=== PATIENT | female | born 1985 | race Caucasian/White ===

== ENCOUNTER → 2018-12-10 10:55 | Outpatient (POV) | payer OTHER, SELFPAY | PROVIDERS: Visit Provider Nurse Practitioner Acute Care | DX: Z00.00 Encounter for general adult medical examination without abnormal findings (principal) ==

== ENCOUNTER → 2021-07-19 12:12 | Outpatient (CLI) | payer BC, SELFPAY ==
[2021-07-19 14:38] LABS: HCG,Quantitative 23807 mIU/ml (0-5.42)
== END ==
PROVIDERS: Visit Provider Obstetrics & Gynecology
DX: Z34.90 Encounter for supervision of normal pregnancy, unspecified, unspecified trimester (principal)
CPT/HCPCS: 36415; 84702

== ENCOUNTER → 2021-08-02 13:41 | Outpatient (CLI) | payer BC, SELFPAY ==
--- NOTE | 2021-08-02 13:41 | US_ITS ---
PROCEDURE: US OB <= 14 WEEKS FETUS CLINICAL INDICATION: dates COMPARISON: No exams were available for comparison FINDINGS: An intrauterine gestational sac is present with a pole with a crown-rump length of 1.37cm correlating to gestational age of 7weeks 5days. heart tones are present with an FHR of 157bpm. Yolk sac is noted. IMPRESSION: Live IUP at 7 weeks 5 days Estimated due date by Ultrasound is 03/16/2022 Dictated by: Diony Alberts MD 08/02/2021 16:25 Diony Alberts MD in [facility] 08/02/2021 16:25
== END ==
PROVIDERS: PCP Nurse Practitioner Family; Visit Provider Obstetrics & Gynecology
DX: Z34.90 Encounter for supervision of normal pregnancy, unspecified, unspecified trimester (principal)
CPT/HCPCS: 76801

== ENCOUNTER → 2021-08-06 14:23 | Outpatient (CLI) | payer BC, SELFPAY ==
[2021-08-09 23:06] LABS: Neisseria gonorrhoeae, NAA Negative (Negative)
== END ==
PROVIDERS: Visit Provider Obstetrics & Gynecology
DX: Z34.90 Encounter for supervision of normal pregnancy, unspecified, unspecified trimester (principal)
CPT/HCPCS: 87491; 87591

== ENCOUNTER → 2021-08-31 15:28 | Outpatient (CLI) | payer BC, SELFPAY ==
[2021-08-31 16:24] LABS: Basophils # 0.1 K/mm3 (0-0.2); Basophils % 0.8 % (0.1-2.0); Eosinophils # 0.1 K/mm3 (0.0-0.4); Eosinophils % 0.9 % (0.1-12.0); Hematocrit 42.3 % (37.0-47.0); Lymphocytes # 2.6 K/mm3 (0.7-4.5); Mean Corpuscular HGB Conc 33.1 g/dL (31.8-35.4); Mean Corpuscular Hemoglobin 28.6 pg (27.0-31.2); Mean Corpuscular Volume 86.6 fl (81-99); Mean Platelet Volume 7.7 fl (7.4-10.4); Monocytes # 0.5 K/mm3 (0.1-1.0); Monocytes % 4.8 % (1.7-9.3); Neutrophils % 70.6 % (37.0-80.0); Platelet Count 376 K/mm3 (142-424); Red Blood Count 4.89 M/mm3 (4.20-5.40); White Blood Count 11.3 K/mm3 (4.8-10.8)
[2021-09-02 08:14] LABS: HIV Screen 4th Generation wRfx Non Reactive (Non Reactive)
[2021-09-02 09:21] LABS: Hepatitis B Surface Antigen Negative (Negative); Hepatitis C Antibody <0.1 s/co ratio (0.0-0.9)
[2021-09-02 13:11] LABS: Rapid Plasma Reagin Ab Titer Non Reactive (NonRea<1:1)
== END ==
PROVIDERS: Visit Provider Obstetrics & Gynecology
DX: Z34.90 Encounter for supervision of normal pregnancy, unspecified, unspecified trimester (principal)
CPT/HCPCS: 36415; 85025; 86592; 86703; 86762; 86850; 87340; 87380; G0432

== ENCOUNTER → 2021-09-22 10:21 | Outpatient (CLI) | payer BC, SELFPAY ==
--- NOTE | 2021-09-22 10:21 | US_ITS ---
PROCEDURE: US OB >= 14 WEEKS FETUS CLINICAL INDICATION: bleeding in early COMPARISON: US US OB <= 14 WEEKS FETUS from 08/02/2021 FINDINGS: There is a single live fetus present in cephalic presentation. The cervix is closed and measures 4 cm in length. The placenta is anterior and grade 1. No previa or abruption. Along the posterior aspect the FD Arctic cavity there is a focal area of I so echogenicity measuring approximately 3 cm. This may represent a Townsend Cee contraction. Fibroid could have a similar appearance however this abnormality was not demonstrated on the previous ultrasound 08/02/2021. Twenty week follow-up suggested. Complete survey performed and was unremarkable on the submitted images as in PACS. No discrete anomalies identified on survey imaging by technologist. Active fetus. Three-vessel cord with satisfactory umbilical cord insertion. 4- chamber heart noted. Survey of brain & ventricles Unremarkable. Face and neck survey unremarkable. Diaphragm and chest views unremarkable. Abdomen: Both kidneys noted and unremarkable. Stomach noted and satisfactory. Spine: Survey of the spine satisfactory with no anomalies identified nor imaged. Both arms and legs noted. Amniotic Fluid: Adequate. Maternal adnexa: No significant findings. Measurements: Average ultrasound age 15weeks 3days. Gestational Age 15weeks 3days Estimated due date by ultrasound age 0503/13/2022. Estimated weight 115g BPD = 15weeks 6days OFD = 15weeks HC = 15weeks 2days AC = 15weeks 1day FL = 15weeks 2days Growth Percentile= 46% Heart Rate = 152bpm Cerebellum = Humerus = HC/AC is 1.24 CI is 0.83 FL/BPD is 0.56 FL/AC is 0.2 IMPRESSION: Live IUP at 15 weeks 3 days in cephalic presentation. No obvious anomalies. However this does not suffice for a 20 week anatomy exam. Anterior grade 1 placenta without previa or abruption. Hypoechogenicity along the amniotic cavity posteriorly which may represent a Townsend Cee contraction. A fibroid could have a similar appearance. Twenty week follow-up suggested. Dictated by: Diony Alberts MD 09/22/2021 17:27 Diony Alberts MD in [facility] 09/22/2021 17:27
== END ==
LOC: RAD 10:21
PROVIDERS: Visit Provider Nurse Practitioner Obstetrics & Gynecology
DX: Z34.90 Encounter for supervision of normal pregnancy, unspecified, unspecified trimester (principal); O20.9 Hemorrhage in early pregnancy, unspecified
CPT/HCPCS: 76805

== ENCOUNTER → 2021-11-08 13:48 | Outpatient (CLI) | payer BC, SELFPAY ==
--- NOTE | 2021-11-08 13:48 | US_ITS ---
FINAL REPORT CLINICAL HISTORY: 20 weeks gestation-- anatomy FINDINGS: There is a single live intrauterine gestation. Presentation is breech. Placenta is anterior, fundal and grade 1. Cardiac activity is confirmed at 142 bpm. Fetus is active. Three-vessel cord with satisfactory umbilical cord insertion. Four-chamber heart is noted. brain and ventricles are unremarkable. Chest and diaphragm are unremarkable. ABDOMEN: Both kidneys are unremarkable. Stomach is unremarkable. SPINE: No anomalies identified. Both arms and legs noted. AMNIOTIC FLUID: Appropriate amount. MEASUREMENTS: ULTRASOUND AGE: 21 weeks 3 days. GESTATION AGE: 21 weeks 5 days. ESTIMATED WEIGHT: 437 g GROWTH PERCENTILE: 39% BPD: 5 cm consistent with 21 weeks 1 days. OFD: 6.6 cm consistent with 21 weeks 6 days. HC: 18.4 cm consistent with 20 weeks 6 days. AC: 16.8 cm consistent with 21 weeks 6 days. FL: 3.7 cm consistent with 21 weeks 5 days. CEREBELLUM: 2.2 cm consistent with 22 weeks 1 days. HUMERUS: 3.6 cm consistent with 22 weeks 5 days. HC/AC: 1.10 CI: 76% FL/BPD: 73% FL/AC: 22% IMPRESSION: Single living IUP with an ultrasound age of 21 weeks 3 days. Reviewed, Interpreted and Dictated by Rakesh Samuels MD Transcribed by Jacky Vaughn Authenticated by Rakesh Samuels MD on 11/09/2021 06:56:37 AM [facility]
== END ==
LOC: RAD 13:48
PROVIDERS: PCP Nurse Practitioner Family; Visit Provider Nurse Practitioner Obstetrics & Gynecology
DX: Z3A.20 20 weeks gestation of pregnancy (principal); Z36.0 Encounter for antenatal screening for chromosomal anomalies
CPT/HCPCS: 76811

== ENCOUNTER → 2021-12-22 08:11 | Outpatient (CLI) | payer BC, SELFPAY ==
[2021-12-22 10:45] LABS: Glucose 1 Hour 145 mg/dL (74-100)
[2021-12-22 11:23] LABS: Glucose,Fasting 83 mg/dl (74-100)
== END ==
PROVIDERS: Visit Provider Nurse Practitioner Obstetrics & Gynecology
DX: Z34.90 Encounter for supervision of normal pregnancy, unspecified, unspecified trimester (principal)
CPT/HCPCS: 36415; 82951

== ENCOUNTER → 2022-01-03 09:02 | Outpatient (CLI) | payer BC, SELFPAY ==
[2022-01-03 09:51] LABS: Glucose,Fasting 83 mg/dl (74-100)
[2022-01-03 11:13] LABS: Glucose 1 Hour 145 mg/dL (74-100)
[2022-01-03 12:48] LABS: Glucose 2 Hour 135 mg/dL (74-100)
[2022-01-03 13:13] LABS: Glucose 3 Hour 100 mg/dL (74-100)
== END ==
PROVIDERS: Visit Provider Nurse Practitioner Obstetrics & Gynecology
DX: Z34.90 Encounter for supervision of normal pregnancy, unspecified, unspecified trimester (principal)
CPT/HCPCS: 36415; 82951

== ENCOUNTER → 2022-02-07 14:29 | Outpatient (CLI) | payer BC, SELFPAY | PROVIDERS: Visit Provider Nurse Practitioner Obstetrics & Gynecology | DX: Z34.90 Encounter for supervision of normal pregnancy, unspecified, unspecified trimester (principal) ==

== ENCOUNTER → 2022-02-22 14:14 | Outpatient (CLI) | payer BC, SELFPAY | PROVIDERS: Visit Provider Nurse Practitioner Obstetrics & Gynecology | DX: Z34.90 Encounter for supervision of normal pregnancy, unspecified, unspecified trimester (principal); Z3A.36 36 weeks gestation of pregnancy | CPT/HCPCS: 86403 ==

== ENCOUNTER → 2022-03-04 13:17 | Outpatient (CLI) | payer BC, SELFPAY ==
--- NOTE | 2022-03-04 13:17 | US_ITS ---
FINAL REPORT CLINICAL HISTORY: sga FINDINGS: There is a single live intrauterine gestation. Presentation is cephalic. The cervix is closed and measures 4.7 cm. Placenta is anterior, grade 2. movement is noted. Heart rate is 150 beats per minute. AMNIOTIC FLUID: Appropriate amount. MEASUREMENTS: ULTRASOUND AGE: 37 weeks 4 days. GESTATION AGE: 38 weeks 2 days. ESTIMATED WEIGHT: 3262 g GROWTH PERCENTILE: 47% BPD: 9.16 cm consistent with 37 weeks 2 days. OFD: 11.32 cm consistent with 38 weeks 2 days. HC: 32.35 cm consistent with 36 weeks 5 days. AC: 33.76 cm consistent with 37 weeks 5 days. FL: 7.48 cm consistent with 38 weeks 2 days. HC/AC: 0.96 CI: 81% FL/BPD: 82% FL/AC: 22% IMPRESSION: Single living IUP with an ultrasound age of 37 weeks 4 days. No anomalies noted. Reviewed, Interpreted and Dictated by Faustino Pierce III, MD Transcribed by Cristina Lazaro Authenticated by Faustino Pierce III, MD on 03/04/2022 03:06:40 PM [facility]
== END ==
LOC: RAD 13:17
PROVIDERS: Visit Provider Nurse Practitioner Obstetrics & Gynecology
DX: O36.5990 Maternal care for other known or suspected poor fetal growth, unspecified trimester, not applicable or unspecified (principal)
CPT/HCPCS: 76816

== ENCOUNTER 2022-03-08 15:56 | Inpatient (IN) | payer BC, SELFPAY ==
[2022-03-08 15:59] VITALS: BMI 40.1
[2022-03-08 16:13] VITALS: BP 129/70; PULSE 112; RESP 18; TEMP 36.8; O2SAT 95; BMI 40.1
[2022-03-08 16:40] LABS: Microscopic, Urine URINE MICROSCOPIC (MICROSCOPIC)
[2022-03-08 16:51] LABS: Chloride 107 mmol/L (98-107); Potassium 3.7 mmoL/L (3.5-5.1); Sodium 135 mmol/L (136-145)
[2022-03-08 16:54] LABS: Blood Urea Nitrogen 7 mg/dl (7-17); Carbon Dioxide 22 mmol/L (22.0-30.0); Creatinine Clearance Estimated 271 mL/min (50-200); Estimated Glomerular Filt Rate 140 ml/min (>60); GFR (African American) 170 ML/MIN (>60)
[2022-03-08 16:55] LABS: Anion Gap 9.7 mEq/L (5-15); Calcium 9.2 mg/dl (8.4-10.2); Glucose 153 mg/dl (74-100)
[2022-03-08 16:58] LABS: Appearance,Urine SL CLOUDY (Clear); Bilirubin,Urine Negative (Negative); Blood, Urine Negative (Negative); Color,Urine YELLOW (Yellow); Glucose,Urine (UA) TRACE (Negative); Ketones,Urine Negative (Negative); Leukocyte Esterase,Urine Negative (Negative); Nitrate,Urine Negative (Negative); PH,Urine 5.5 (5.0-8.5); Protein,Urine TRACE (Negative); Specific Gravity, Urine >= 1.030 (1.005-1.030); Urobilinogen,Urine 0.2 EU/dl (0.2)
[2022-03-08 17:03] LABS: Basophils # 0.1 K/mm3 (0-0.2); Basophils % 1.1 % (0.1-2.0); Eosinophils # 0.1 K/mm3 (0.0-0.4); Eosinophils % 1.2 % (0.1-12.0); Hematocrit 37.9 % (37.0-47.0); Hemoglobin 12.4 g/dL (12.2-16.2); Lymphocytes # 2.3 K/mm3 (0.7-4.5); Lymphocytes % 21.5 % (10-50); Mean Corpuscular HGB Conc 32.8 g/dL (31.8-35.4); Mean Corpuscular Hemoglobin 27.9 pg (27.0-31.2); Mean Corpuscular Volume 85.1 fl (81-99); Mean Platelet Volume 8.8 fl (7.4-10.4); Monocytes # 0.7 K/mm3 (0.1-1.0); Monocytes % 6.2 % (1.7-9.3); Neutrophils # 7.4 K/mm3 (1.8-7.8); Platelet Count 342 K/mm3 (142-424); Red Blood Count 4.45 M/mm3 (4.20-5.40); Red Cell Distribution Width 14.1 % (11.5-17.5); White Blood Count 10.6 K/mm3 (4.8-10.8)
[2022-03-08 17:06] LABS: Amphetamine/Metha Screen,Urine Negative ng/ml (<1000); Barbiturates Screen,Urine Negative ng/ml (<200)
[2022-03-08 17:07] LABS: Benzodiazepines Screen,Urine Negative ng/ml (<200)
[2022-03-08 17:08] LABS: Cannabinoid Screen,Urine Negative ng/ml (<50); Cocaine Screen,Urine Negative ng/ml (<300)
[2022-03-08 17:09] LABS: Methadone Screen,Urine Negative ng/ml (<300); Opiate Screen,Urine Negative ng/ml (<300)
[2022-03-08 17:10] LABS: Phencyclidine Screen,Urine Negative ng/ml (<25)
[2022-03-08 17:59] LABS: Bacteria,Urine 3+ /lpf
--- NOTE | 2022-03-08 18:00 | HMH.OBAPHP ---
OB - H&P: HPI Antepartum - History of Present Illness Chief complaint: Term History of present illness: She is a 36-year-old 2 para 1 at 39 weeks gestational age. She is here for induction of labor at term. She has had a previous vaginal delivery. Recent ultrasound showed an average size baby. - History of Present Criteria for establishing EDC:: LMP confirmed by 1st trimester US care: good care Ultrasounds: normal 1st trimester US, normal mid trimester US Obstetrical complications: none, other Medical complications: none - Labs Blood type: A (+) positive Rubella: immune RPR/VDRL: nonreactive GBS status: negative HBsAG: negative [facility] History I have reviewed the patient's past medical history: Yes Medical History: Reports:: Anxiety Denies:: Asthma, Depression, Diabetes Mellitus Type 1, Diabetes Mellitus Type 2, Heart Murmur, Hyperlipidemia, Hypertension, Internal Pacemaker, Lung Disease, MRSA, Seizures *Have you ever received a pneumonia vaccine?: No *Have you received a flu vaccine this season?: No Other Medical History: Denies: Blood Transfusion Reaction Other Surgeries: No: , Pacemaker Amputation: No Fractures: No - *Social History Smoking Status: Former smoker Tobacco Type: cigarettes Alcohol Intake: current Alcohol Intake Frequency:: holidays/special occasions only Substance Use Type: denies use *Occupational Status:: employed *Travel in the last 8 weeks: None - Psychiatric History Pschychiatric History:: Reports:: Anxiety Denies:: Depression Family Hx:: Heart Attack, Hypertension, Hyperlipidemia Para: 1 Review of Systems - Review of Systems Review of systems:: pertinent systems reviewed and negative unless documented below Meds Home Medications Medication Instructions Recorded Confirmed Type vits no.126-ferrous fum tab PO DAILY tab 08/06/21 03/01/22 History 28 mg iron-folic acid 800 mcg tablet ferrous gluconate 240 mg (27 mg 240 mg PO DAILY #30 tab 10/29/21 03/01/22 Rx iron) tablet Allergies Allergy/AdvReac Type Severity Reaction Status Date / Time Sulfa (Sulfonamide Allergy Mild not sure Verified 03/01/22 15:53 Antibiotics) of reaction, mom told her she was allergic OB - H&P: Exam - Physical Exam Vital signs: Temp Pulse Resp BP Pulse Ox 98.3 F 112 H 18 129/70 95 03/08/22 16:13 03/08/22 16:13 03/08/22 16:13 03/08/22 16:13 03/08/22 16:13 - Constitutional no acute distress - Routine HEENT Exam Head: Present: normocephalic Eye: Present: EOMI, PERRL ENT: Present: mucous membranes moist - Routine Neck Exam Present: supple, full ROM - Routine Respiratory Exam Absent: accessory muscle use (good air entry bilaterally), respiratory distress, wheezes, crackles - Routine Cardiovascular Exam Present: RRR. Absent: murmur - Routine Abdominal Exam Present: soft, normoactive bowel sounds. Absent: tenderness, distended, guarding - Routine Rectal Exam Patient deferred: visual exam, digital exam - Routine Exam Patient deferred: external exam, groin exam, perineal exam - Routine Extremities Exam Present: full ROM. Absent: cyanosis, edema - Routine Skin Exam Present: intact. Absent: cyanosis - Routine Neurological Exam Present: alert, oriented X3 - Routine Psychiatric Exam Present: normal affect OB - Results - Labs Labs: Short CBC 03/08/22 Range/Units 16:27 WBC 10.6 (4.8-10.8) K/mm3 Hgb 12.4 (12.2-16.2) g/dL Hct 37.9 (37.0-47.0) % Plt Count 342 (142-424) K/mm3 BMP 03/08/22 16:27 Sodium 135 L Potassium 3.7 Chloride 107 Carbon Dioxide 22 BUN 7 Creatinine 0.50 L Glucose 153 H Calcium 9.2 Urine 03/08/22 Range/Units 16:08 Urine Color Yellow (Yellow) Urine Appearance Sl cloudy (Clear) Urine pH 5.5 (5.0-8.5) Ur Specific [place] >= 1.030 (1.005-1.030) Urine Prote
[2022-03-09 08:00] VITALS: BP 117/57; PULSE 73; RESP 18; TEMP 36.8; O2SAT 99
--- NOTE | 2022-03-09 08:36 | HMH.LABNOT ---
Labor Note - Subjective: Date: 03/09/22 Time: 07:25 regular contraction - Objective: NST:: Reactive Contractions:: every 2-3 minutes Cervical Dilation:: 2-3 Effacement:: 50% Station: -2 Membranes: artificially ruptured - Fetus: Monitoring?: Yes monitoring type:: Internal and External Comment:: I ruptured her membranes and there was clear fluid. I inserted an IUPC. - Assessment: Labor progressing?: Yes Cephalopelvic disproportion?: No Patient Problems: All Active Problems Normal delivery at term (Acute) AMA (advanced maternal age) multigravida 35+ (Acute) (Acute) - Plan: Anesthesia for epidural?: Yes Continue to labor down?: Yes Plan for ?: No Continue to monitor?: Yes Start pushing?: No
--- NOTE | 2022-03-09 08:48 | HMH.ANESCL ---
[facility] Anesthesia Checklist - Patient Identification Patient Identification: Arm Band - Structural Data Admitted From: Inpatient Planned Operative Procedure/s: Labor Epidural Consent for Planned Operative Procedure(s) Verified: Yes Verified Documents: Surgical Consent, History and Physical - NPO Status Verified Time NPO: 00:00 - Additional verifications Anesthesia Reactions: No Hx Blood Transfusions: No Blood Transfusion Reaction: No - Airway Assessment C-Spine Mobility Assessed: Yes TMJ Mobility Assessed: Yes Dentition: Good Dentition - Neurological Assessment Level of Consciousness: Awake, Alert - Anesthesia Plan Anesthesia Risk discussed: Yes Anesthesia Plan: Verified ASA Class: II Anesthesia Type: Epidural [facility] History I have reviewed the patient's past medical history: Yes Medical History: Reports:: Anxiety Denies:: Asthma, Depression, Diabetes Mellitus Type 1, Diabetes Mellitus Type 2, Heart Murmur, Hyperlipidemia, Hypertension, Internal Pacemaker, Lung Disease, MRSA, Seizures *Have you ever received a pneumonia vaccine?: No *Have you received a flu vaccine this season?: No Other Medical History: Denies: Blood Transfusion Reaction Anesthesia experience/problems:: nac Other Surgeries: No: , Pacemaker Amputation: No Fractures: No - *Social History Smoking Status: Former smoker Tobacco Type: cigarettes Alcohol Intake: current Alcohol Intake Frequency:: holidays/special occasions only Substance Use Type: denies use *Occupational Status:: employed *Travel in the last 8 weeks: None - Psychiatric History Pschychiatric History:: Reports:: Anxiety Denies:: Depression Family Hx:: Heart Attack, Hypertension, Hyperlipidemia Para: 1
--- NOTE | 2022-03-09 10:27 | HMH.LABNOT ---
Labor Note - Subjective: Date: 03/09/22 Time: 10:05 regular contraction - Objective: NST:: Reactive Contractions:: every 2-3 minutes Cervical Dilation:: 4 Effacement:: 75% Membranes: artificially ruptured - Fetus: Monitoring?: Yes monitoring type:: Internal and External - Assessment: Labor progressing?: Yes Cephalopelvic disproportion?: No Patient Problems: All Active Problems Normal delivery at term (Acute) AMA (advanced maternal age) multigravida 35+ (Acute) (Acute) - Plan: Anesthesia for epidural?: Yes Continue to labor down?: Yes Plan for ?: No Continue to monitor?: Yes Start pushing?: No
--- NOTE | 2022-03-09 11:43 | HMH.LABNOT ---
Labor Note - Subjective: Date: 03/09/22 Time: 11:43 regular contraction - Objective: NST:: Reactive Contractions:: every 2-3 minutes Cervical Dilation:: 4-5 Effacement:: 90% Station: -2 Membranes: artificially ruptured - Fetus: Monitoring?: Yes monitoring type:: Internal and External - Assessment: Labor progressing?: Yes Cephalopelvic disproportion?: No Patient Problems: All Active Problems Normal delivery at term (Acute) AMA (advanced maternal age) multigravida 35+ (Acute) (Acute) - Plan: Anesthesia for epidural?: Yes Continue to labor down?: Yes Plan for ?: No Continue to monitor?: Yes Start pushing?: No
--- NOTE | 2022-03-09 13:59 | HMH.LABNOT ---
Labor Note - Subjective: Date: 03/09/22 Time: 13:59 regular contraction - Objective: NST:: Reactive Contractions:: every 2-3 minutes Cervical Dilation:: 7 Effacement:: 90% Station: -1 Membranes: artificially ruptured - Fetus: Monitoring?: Yes monitoring type:: Internal and External - Assessment: Labor progressing?: Yes Cephalopelvic disproportion?: No Patient Problems: All Active Problems Normal delivery at term (Acute) AMA (advanced maternal age) multigravida 35+ (Acute) (Acute) - Plan: Anesthesia for epidural?: Yes Continue to labor down?: Yes Plan for ?: No Continue to monitor?: Yes Start pushing?: No
--- NOTE | 2022-03-09 15:49 | HMH.LABNOT ---
Labor Note - Subjective: Date: 03/09/22 Time: 15:49 regular contraction - Objective: NST:: Reactive Cervical Dilation:: 9 Effacement:: 90% Station: -1 Membranes: artificially ruptured - Fetus: Monitoring?: Yes monitoring type:: Internal and External - Assessment: Labor progressing?: Yes Cephalopelvic disproportion?: No Patient Problems: All Active Problems Normal delivery at term (Acute) AMA (advanced maternal age) multigravida 35+ (Acute) (Acute) - Plan: Anesthesia for epidural?: Yes Continue to labor down?: Yes Plan for ?: No Continue to monitor?: Yes Start pushing?: No Comment:: The baby comes down well with each contraction. It retracts quite high between contractions. She is 9 cm with a contraction. We will continue to have her sitting up and see if this helps bring the baby's head down a little more. Nonstress test is reactive. She is having some good contractions. As soon as she becomes fully dilated and the head is well engaged we will go ahead and start pushing.
--- NOTE | 2022-03-09 17:40 | P.PCN_ITS ---
- Delivery Note Delivery Date:: 03/09/22 Delivery Time:: 17:30 Anesthesia Type: Epidural Was labor medically induced?: Yes Induction method: per misoprostol protocol Gestational age (weeks): 39 delivered prior to 39 weeks?: No Infant Gender: Female at 1 minute: 8 at 5 minutes: 9 Delivery Procedure:: She is a 36-year-old 2 para 1 at 39 weeks gestational age. She was having lots of pressure and discomfort so we elected to deliver her at term. She was started on Cervidil the evening of March 08, 2022. Following morning she was started on IV oxytocin had her membranes ruptured. Under labor epidural she progressed to full dilation and delivered spontaneously a liveborn female child at 5:30 PM in the afternoon of March 09, 2022. On deliver the head it was noted that there was a tight nuchal cord so elected to deliver the rest the 's body followed by reduction of the nuchal cord. The baby was vigorous and we allowed the cord to continue to pulsate for approximately 1 minute. The cord was then doubly clamped and cut and the was placed on the mother's abdomen for further care. The nurse assigned Apgars of 8 at 1 minute and 9 at 5 minutes. We then obtained cord blood. She received IV oxytocin using gentle traction on the cord and countertraction the fundus I was able to easily deliver the placenta intact. Had normal three- vessel cord. There were no perineal or vaginal lacerations. She has a positive blood, she is rubella immune and was group B streptococcus negative. She plans to breast-feed. Her highway landscape architect is Dr. Hanna. Estimated blood loss was approximately 250 cc. Placental Delivery Description: Spontaneous
[2022-03-09 19:54] VITALS: BP 119/59; PULSE 85; RESP 18; TEMP 37.2; O2SAT 98
[2022-03-10 04:12] VITALS: BP 113/56; PULSE 79; RESP 18; TEMP 36.4; O2SAT 98
[2022-03-10 08:00] LABS: Hematocrit 32.4 % (37.0-47.0); Hemoglobin 10.7 g/dL (12.2-16.2)
[2022-03-10 08:31] VITALS: BP 99/57; PULSE 80; RESP 17; TEMP 36.5; O2SAT 100
--- NOTE | 2022-03-10 11:19 | HMH.ACPN2 ---
Internal Medicine - PN: Subj *Date: 03/10/22 *Time: 11:19 Interval history: She is doing very well this morning. We will plan on sending her home tomorrow. Her lochia is normal. She is breast-feeding. Exam Vital signs and Labs for Last 24 Hours: Temp Pulse Resp BP Pulse Ox 97.7 F 80 17 99/57 L 100 03/10/22 08:31 03/10/22 08:31 03/10/22 08:31 03/10/22 08:31 03/10/22 08:31 Laboratory Results - last 24 hr 03/10/22 07:13: Hgb 10.7 L, Hct 32.4 L I & O for Last 24 hours: Intake & Output 03/07/22 03/08/22 03/09/22 03/10/22 11:59 11:59 11:59 11:59 Weight 241 lb Microbiology Reports for the Last 24 Hours: Microbiology 03/08/22 16:08 Urine,Clean Catch Urine Culture - Final Multiple organisms, suggests contamination. - Constitutional no acute distress - *Routine HEENT Exam Head: Present: normocephalic Eye: Present: EOMI, PERRL ENT: Present: mucous membranes moist Assessment and Plan (1) Normal delivery at term Status: Acute Category: Medical Code(s): O80 - Encounter for full-term uncomplicated delivery (2) AMA (advanced maternal age) multigravida 35+ Status: Acute Qualifiers: Trimester: third trimester Qualified Code(s): O09.523 - Supervision of elderly multigravida, third trimester Category: Medical Code(s): O09.529 - Supervision of elderly multigravida, unspecified trimester - Assessment and plan all Dx Assessment and Plan for all problems:: She is doing very well. We will plan to send her home tomorrow.
[2022-03-10 13:06] VITALS: BP 118/65; PULSE 78; RESP 18; TEMP 36.6; O2SAT 97
[2022-03-10 16:29] VITALS: BP 119/69; PULSE 66; RESP 16; TEMP 36.7
[2022-03-10 19:54] VITALS: BP 119/56; PULSE 72; RESP 18; TEMP 36.8; O2SAT 98
[2022-03-11 04:51] VITALS: BP 122/58; PULSE 58; RESP 17; TEMP 36.5; O2SAT 99
[2022-03-11 08:09] VITALS: BP 131/82; PULSE 84; RESP 18; TEMP 36.8
--- NOTE | 2022-03-11 09:01 | P.DS_ITS ---
General - General Admission date:: 03/08/22 Discharge date: 03/11/22 HPI - History of Present Illness History of present illness: She is a 36-year-old 2 para 1 at 39 weeks gestational age. She was brought in for induction of labor at term. Hospital Course Hospital Course: She started on Cervidil and the following morning was started on IV oxytocin. She had her membranes ruptured and under labor epidural progressed to full dilation. She delivered spontaneously a liveborn female child at 5:30 PM in the evening of March 09, 2022. The baby weighed 7 pounds 1 ounce and was 19 inches long. She had Apgars of 8 at 1 minute and 9 at 5 minutes. There were no perineal or vaginal lacerations. She has done well and has remained afebrile throughout her hospitali zation. She is eating and drinking and ambulating. She is breast-feeding. Her lochia is normal. She has a positive blood, she is rubella immune and was group B streptococcus negative. Her green prize packer is Dr. Hanna. She is discharged home to follow-up with me in approximately 2 weeks time. She will continue with her vitamins and iron. She was given the usual instructions with respect to limiting her activity, driving and sexual activity. Her condition on discharge is stable and improved. Rhogam Administration: Not Indicated Objective Vital signs: Temp Pulse Resp BP Pulse Ox 98.2 F 84 18 131/82 99 03/11/22 08:09 03/11/22 08:09 03/11/22 08:09 03/11/22 08:09 03/11/22 04:51 no acute distress - *Routine HEENT Exam Head: Present: normocephalic Eye: Present: EOMI, PERRL ENT: Present: mucous membranes moist DS: Diagnosis - Discharge Diagnosis (1) Normal delivery at term Status: Acute (2) AMA (advanced maternal age) multigravida 35+ Status: Acute Discharge Plan - Patient Discharge Instructions ACTIVITY: Continue current activity DIET: continue same diet Additional Instructions: No heavy lifting/strenuous activity Nothing in your vagina for 6 weeks Follow up with your doctor as scheduled Patient Instructions: Depression, Hemorrhage, DI for Labor and Delivery, Vaginal , DI for Pre-eclampsia, [facility] Post Discharge Instructions, Preventing the Spread of Coronavirus Discharge Instructions - Follow up Plan Follow up with: Brian Cole MD [Staff Physician] - 03/23/22 10:15 am Disposition: Home, Self-Care Condition at discharge:: Stable Home Medications: Home Medications Medication Instructions Recorded Confirmed Type vits no.126-ferrous fum 1 tab PO DAILY tab 08/06/21 03/08/22 History 28 mg iron-folic acid 800 mcg tablet Ferrous Gluconate [Ferrous 240 mg PO DAILY 03/08/22 03/08/22 History Gluconate 240mg Tab] Prescriptions/Medication Reconciliation: Continued vits no.126-ferrous fum 28 mg iron-folic acid 800 mcg tablet 1 tab PO DAILY tab Ferrous Gluconate [Ferrous Gluconate 240mg Tab] 240 mg PO DAILY - Problem Reconciliation Problems Reviewed?: Yes
== END 2022-03-11 10:10 | disposition home or self-care (01) | DRG 807 ==
PROVIDERS: Admitting Provider Nurse Practitioner Obstetrics & Gynecology; Visit Provider Nurse Practitioner Obstetrics & Gynecology
DX: O69.81X0 Labor and delivery complicated by cord around neck, without compression, not applicable or unspecified (principal); Z37.0 Single live birth; Z3A.39 39 weeks gestation of pregnancy; Z87.891 Personal history of nicotine dependence
CPT/HCPCS: 59409; 36415; 59025; 80048; 80305; 81001; 85014; 85018; 85025; 86850; 87086; 94761; C1758; C9803; G0283; U0003; U0005

== ENCOUNTER → 2023-04-13 15:13 | Outpatient (CLI) | payer BC, SELFPAY ==
[2023-04-13 15:29] LABS: Basophils % 0.5 % (0.1-2.0); Eosinophils # 0.2 K/mm3 (0.0-0.4); Eosinophils % 2.5 % (0.1-12.0); Hematocrit 45.8 % (37.0-47.0); Hemoglobin 14.5 g/dL (12.2-16.2); Lymphocytes # 2.2 K/mm3 (0.7-4.5); Lymphocytes % 25.3 % (10-50); Mean Corpuscular HGB Conc 31.6 g/dL (31.8-35.4); Mean Corpuscular Hemoglobin 26.7 pg (27.0-31.2); Mean Corpuscular Volume 84.6 fl (81-99); Mean Platelet Volume 7.7 fl (7.4-10.4); Monocytes # 0.5 K/mm3 (0.1-1.0); Monocytes % 5.8 % (1.7-9.3); Neutrophils # 5.8 K/mm3 (1.8-7.8); Neutrophils % 65.9 % (37.0-80.0); Platelet Count 321 K/mm3 (142-424); Red Blood Count 5.42 M/mm3 (4.20-5.40); White Blood Count 8.7 K/mm3 (4.8-10.8)
[2023-04-13 16:40] LABS: Alanine Aminotransferase 21 U/L (12-78); Albumin Level 4.3 g/dl (3.5-5.0); Albumin/Globulin Ratio 1.5 (1.1-1.8); Alkaline Phosphatase 70 U/L (38-126); Anion Gap 13.5 mEq/L (5-15); Aspartate Amino Transferase 26 U/L (14-36); Bilirubin,Total 0.4 mg/dl (0.2-1.3); Blood Urea Nitrogen 10 mg/dl (7-17); Carbon Dioxide 28 mmol/L (22.0-30.0); Chloride 103 mmol/L (98-107); Estimated Glomerular Filt Rate 81 ml/min (>60); GFR (African American) 98 ML/MIN (>60); Globulin 2.9 g/dL (1.3-3.2); Glucose 82 mg/dl (74-100); Potassium 4.5 mmoL/L (3.5-5.1); Sodium 140 mmol/L (136-145); Total Protein,Serum 7.2 g/dl (6.3-8.2)
[2023-04-13 16:58] LABS: HCG,Quantitative < 2 mIU/ml (0-5.42)
== END ==
PROVIDERS: PCP Nurse Practitioner Family; Visit Provider Nurse Practitioner Obstetrics & Gynecology
DX: Z30.09 Encounter for other general counseling and advice on contraception (principal)
CPT/HCPCS: 36415; 80053; 84702; 85025

== ENCOUNTER 2023-04-19 06:01 | Day surgery (SDC) | payer BC, SELFPAY ==
[2023-04-19] VITALS (12 sets, daily range): BP systolic 99–141; BP diastolic 59–73; PULSE 60–100; RESP 12–18; TEMP 36.3–43; O2SAT 92–100; BMI 36.0
--- NOTE | 2023-04-19 06:42 | P.PN_ITS ---
[facility] Disclaimer: The information contained in this section may have been updated after the patient was seen, as this information can be updated by other users. Medical History (Updated 04/19/23 @ 06:14 by Cristina Smith RN) No active medical problems No significant past medical history Surgical History No history of previous surgery Family History Other No significant family history Social History (Updated 04/19/23 @ 06:14 by Cristina Smith RN) Smoking Status: Former smoker alcohol intake: former substance use type: denies use current occupational status: employed Travel in the last 8 weeks: None caffeine: No [facility] Anesthesia Checklist Patient Identification Patient Identification: Arm Band and Family Structural Data Admitted From: Home Planned Operative Procedure/s: Lap Bilateral salpingectomy. NPO Status Verified Time NPO: 00:00 Additional verifications Patient : No Anesthesia Reactions: No Hx Blood Transfusions: No Blood Transfusion Reaction: No Cephalosporin Allergy: No Airway Assessment C-Spine Mobility Assessed: Yes TMJ Mobility Assessed: Yes Dentition: Good Dentition Neurological Assessment Level of Consciousness: Awake, Alert, Appropriate and Follows Commands Hx Seizures: No Numbness or tingling in extremities: No Anesthesia Plan Anesthesia Risk discussed: Yes ASA Class: I Anesthesia Type: General
--- NOTE | 2023-04-19 08:21 | EXP.ANES.I ---
[facility] Anesthesia Record Part I Anesthesia Record I Intake, IV Amount: 900 Estimated blood loss (mL): 25 Urine output (mL): 0 Blood Pressure: 109/69 SaO2: 92 Pulse Rate: 72 Respiratory Rate: 12 Temperature: 98.3 F Patient is:: Drowsy and Oral/Nasal airway Stable to PACU at:: 08:20
--- NOTE | 2023-04-19 08:21 | EXP.OP.NOTE ---
Date of procedure: 04/19/23 Pre-op Diagnosis:: Desire for sterilization Post-op Diagnosis:: Desire for sterilization Procedure performed:: Laparoscopic bilateral salpingectomy Surgeon:: Brian Cole MD RETREAD MOLD OPERATOR:: Ke Matamoros Anesthesia: GETA Estimated blood loss (mL): 25 Clinical Note:: She is a 37-year-old lady who expressed desire for sterilization. The risks and benefits as well as the irreversibility of bilateral salpingectomy were discussed with the patient prior to surgery. Operative findings:: She had a normal-appearing anteverted uterus. The ovaries and tubes appeared normal. The upper abdomen is normal. The deep pelvis was normal. Operative note:: She was taken to the operating room where general anesthesia was found be adequate. She was prepped and draped in normal sterile fashion in the semilithotomy position. A weighted speculum was placed in the vagina and the anterior lip of the cervix was grasped with a tenaculum. I then inserted a Melida uterine manipulator into the cervical os. The balloon was then insufflated. I changed gloves and injected 10 cc of 0.5% ropivacaine around her umbilicus and made a small incision within the umbilicus. I inserted a Veress needle into the abdominal cavity. The peritoneal cavity was then insufflated with carbon dioxide gas to a pressure of 20 mmHg. I then inserted a 5 millimeter trocar under direct vision. I injected through and through the pubic hairline, made a small incision here and inserted an 8 mm trocar under direct vision. I identified the inferior epigastric artery on the left side, went lateral to these and injected through and through. I then placed a 5 mm trocar here under direct vision. The pelvis and upper abdomen were then inspected and the findings were as previously dictated. I grasped the right tube at the cornua and using harmonic scalpel on coagulation mode I cut through the tube. I then grasped the distal tube and using harmonic scalpel cut along the mesosalpinx. The tube was removed through 8 mm trocar site. This was similarly performed on the patient's left side. I then injected 30 cc of 0.5% ropivacaine into the pelvis. After assuring hemostasis the gas was let out of the abdomen and hemostasis was once again assured. The abdomen was then reinsufflated. The secondary trochars were removed under direct vision. The gas was let out her abdomen. The primary trocar was then removed. The 8 mm trocar site was closed deeply with 2-0 Vicryl suture followed by subcuticular 4-0 Monocryl suture. The 5 mm trocar sites were closed with subcuticular 4-0 Monocryl. Sterile dressings were applied. The patient tolerated the procedure well and was taken to the recovery room in excellent condition. All sponge instrument and needle counts were correct. The estimated blood loss was less than 25 cc. Condition: stable Disposition: PACU Specimens:: Bilateral fallopian tubes Complications:: None
--- NOTE | 2023-04-19 08:53 | P.PNANES_ITS ---
[facility] Anesthesia Record Part I Anesthesia Record I Intake, IV Amount: 400 Estimated blood loss (mL): 19 Urine output (mL): 0 Blood Products used (#): none Blood Pressure: 141/68 SaO2: 97 Pulse Rate: 100 Respiratory Rate: 18 Temperature: 97.4 F Patient is:: Drowsy and Stable Stable to PACU at:: 08:48
--- NOTE | 2023-04-19 09:48 | P.PNANES_ITS ---
[facility] Anesthesia Record Part II Anesthesia Record Part II Discharge Time: 08:50 Destination: Surgical Day Care (OP Surgery) PACU nurse assessment reviewed?: Yes Patient Condition:: Good Anesthesia Complications:: None Swallowing reflex intact?: Yes Cyanosis?: No Blood Pressure: 107/65 Pulse Rate: 69 Temperature: 97.5 F Mental Status: Alert & Oriented Pain level:: 0 Nausea and/or vomitting:: None Intake, IV Amount: 0
== END 2023-04-19 09:21 | disposition home or self-care (01) ==
PROVIDERS: PCP Nurse Practitioner Family; Visit Provider Nurse Practitioner Obstetrics & Gynecology
PROC: (CPT 58661; principal; 2023-04-19 07:30)
DX: Z30.2 Encounter for sterilization (principal)
CPT/HCPCS: 58661; 96374; J2405

== ENCOUNTER 2024-01-01 10:38 | Outpatient (CLI) | payer BC, SELFPAY ==
--- NOTE | 2024-01-01 10:39 | CT_ITS ---
FINAL REPORT TECHNIQUE: Thin section axial CT images of the facial bones and sinuses were obtained without contrast. Coronal reformatted images were also obtained.This study was performed with techniques to keep radiation doses as low as reasonably achievable, (ALARA). Individualized dose reduction techniques using automated exposure control or adjustment of mA and/or kV according to the patient''''s size were employed. CLINICAL HISTORY: sinusitis FINDINGS: There is mild mucosal thickening in multiple sinuses. No fluid levels are identified. There are bilateral paradoxical middle turbinates. A small left-sided nasal septal spur pressure is noted. No fracture or acute bony abnormality is identified. IMPRESSION: Mild mucosal thickening in multiple sinuses. Reviewed, Interpreted and Dictated by Faustino Pierce III, MD Transcribed by Skylar Irwin Authenticated and [facility]
== END 2024-01-01 23:59 ==
LOC: RAD 10:39
PROVIDERS: PCP Nurse Practitioner Family; Visit Provider Nurse Practitioner
DX: J32.9 Chronic sinusitis, unspecified (principal); Z87.891 Personal history of nicotine dependence
CPT/HCPCS: 70486

== ENCOUNTER 2024-01-24 11:58 | Emergency (ER) | payer BC, SELFPAY ==
[2024-01-24 12:05] VITALS: BP 112/72; PULSE 63; RESP 18; TEMP 37.1; O2SAT 96; BMI 27.8
--- NOTE | 2024-01-24 12:29 | EXP.UTC ---
Discharge Plan Disposition Patient Disposition: Home, Self-Care Condition: Good Prescriptions Prescriptions: New methylprednisolone 4 mg Tablets,Dose Pack 4 mg PO DIRECTED 6 Days Qty: 21 0RF Rx Instructions: Take 1 pack as directed for 6 days No Action azelastine 137 mcg (0.1 %) aerosol,spray 2 spray intranasal BID Qty: 30 2RF Rx Instructions: administer into each nostril levocetirizine [Xyzal] 5 mg tablet 5 mg PO DAILY Qty: 30 2RF omeprazole 20 mg capsule,delayed release(DR/EC) 40 mg PO DAILY Qty: 30 2RF Referrals Follow up/Referrals: Garrison Salamanca APRN [Primary Care Provider] - See instructions Activity Restrictions/Add. Instructions Additional Instructions/Restrictions: Drink plenty of fluids. Take tylenol or ibuprofen for pain or fever. Take the medications as directed. Don't start the oral steroids (medrol dose pack) until tomorrow. Follow up with your regular doctor. GO TO THE ER FOR ANY WORSENING SYMPTOMS Throw your tooth brush away and get a new one. Clinical Impressions Clinical Impression: Strep pharyngitis Instructions Patient Instructions: Strep Throat, DI for Strep Throat, Methylprednisolone, Penicillin G Benzathine Injection, Dexamethasone Injection Discharge ED Provider: Linwood Epstein [facility] General Stated complaint: sore throat, headache, stuffy nose Mode of Arrival: Ambulatory Source of Information: Patient Limitations: No Limitations Time Seen by Provider: 01/24/24 12:28 Description of Symptoms (Recalled from Triage Doc. by RN): Pt's symptoms are stuffy nose, runny nose, SR, sneezing, and sore throat. HEENT Symptoms (Recalled from RN notes): Yes Resp Symptoms (Recalled from RN notes): No Skin Symptoms (Recalled from RN notes): No MS Symptoms (Recalled from RN notes): No Functional Status (Recalled from RN notes): n/a History of Present Illness Provider Complaint: She states that for the past 2 days she has had sore throat, fever, and malaise. Related Data Previous Rx's Medication Instructions Recorded azelastine 137 mcg (0.1 %) nasal 2 spray intranasal BID #30 mL 01/09/24 spray aerosol levocetirizine 5 mg tablet (Xyzal) 5 mg PO DAILY #30 tabs 01/09/24 omeprazole 20 mg capsule,delayed 40 mg (2 x 20 mg) PO DAILY #30 caps 01/09/24 release methylprednisolone 4 mg tablets in 4 mg PO DIRECTED 6 days #21 tabs 01/24/24 a dose pack Allergies Allergy/AdvReac Type Severity Reaction Status Date / Time Sulfa (Sulfonamide Allergy Mild not sure Verified 01/24/24 12:16 Antibiotics) of reaction, mom told her she was allergic Worker's Comp Is this a Worker's Comp case?: No [facility] Disclaimer: The information contained in this section may have been updated after the patient was seen, as this information can be updated by other users. Medical History (Updated 01/24/24 @ 13:04 by Linwood Epstein APRN) Sinus mucosal thickening Sinus pressure No active medical problems Surgical History H/O bilateral salpingectomy Family History Other No significant family history Social History Smoking Status: Former smoker tobacco type: cigarettes alcohol intake: former substance use type: denies use current occupational status: employed Travel in the last 8 weeks: None caffeine: No ROS Obtained: Yes All systems reviewed & no additional complaints except as documented Constitutional Constitutional: Reports chills and Reports fever(s) Eyes Eyes: Denies eye discharge ENT Ears, Nose, Mouth, and Throat: Reports as per HPI Cardiovascular Cardiovascular: Denies chest pain Respiratory Respiratory: Denies chest congestion and Reports cough Gastrointestinal Gastrointestingal: Reports nausea; Denies abdominal pain, constipation, cramping, diarrhea or vomiting Musculoskeletal Musculoskeletal: Denies arthralgias Integumentary/Breasts Skin/Breast: Denies rash Neurologic Neurologic: Denies paresthesias Physical Exam General General appearance: alert and in no apparent distress Head Head exam: atraumatic, normocephalic and normal inspection Eye Eye exam: Present normal appearance, PERRL and EOMI ENT ENT exam: Present mucous membranes moist and normal external ear exam Expanded ENT Exam TM/Canal exam: Bilateral TM: erythema and bulging Nose exam: Absent sinus tenderness Mouth exam: Present normal external inspection; Absent drooling Teeth exam: Present normal inspection Throat exam: Present tonsillar erythema, tonsillomegaly and tonsillar exudate Neck Neck exam: Present normal inspection, full ROM and trachea midline; Absent tenderness, meningismus or lymphadenopathy Chest Chest inspection: Present normal inspection and symmetric chest wall rise; Absent tenderness Respiratory Respiratory exam: Present normal lung sounds bilaterally; Absent respiratory distress, wheezes, stridor or accessory muscle use Cardiovascular Cardiovascular exam: Present regular rate and normal rhythm; Absent systolic murmur or diastolic murmur Abdominal Exam Abdominal exam: Present soft and normal bowel sounds; Absent distention, tenderness, guarding, rebound or rigidity Extremities Exam Extremities exam: Present normal inspection and normal capillary refill; Absent calf tenderness Back Exam Back exam: Present normal inspection and full ROM; Absent tenderness, CVA tenderness (R) or CVA tenderness (L) Neurological Exam Neurological exam: Present alert, oriented X3 and CN II-XII intact Psychiatric Psychiatric exam: Present normal affect and normal mood Skin Skin exam: Present warm, dry, intact and normal color Medical Decision Making Medical Records Medical records reviewed: No I reviewed the patient's medical records. Andrea Inquiry Pt receiving controlled substance: No Vital Signs: 01/24/24 12:05 Temperature 98.7 F Temperature Source Oral Pulse Rate [Right Radial] 63 Respiratory Rate 18 Blood Pressure [Right Arm] 112/72 Blood Pressure Mean [Right Arm] 85 Blood Pressure Source [Right Arm] Automatic Cuff Blood Pressure Position [Right Arm] Sitting 02 Sat by Pulse Oximetry 96 Oxygen Delivery Method Room Air Lab Data Lab results reviewed: Yes I reviewed the patient's lab results.
[2024-01-24 12:31] LABS: UTC Influenza A Antigen Negative (Negative); UTC Influenza B Antigen Negative (Negative); UTC Strep Screen (Rapid) Positive (Negative)
[2024-01-24] MEDS: DEXAMETHASONE 4MG/ML 1ML VIAL 8 MG IM (13:03)
[2024-01-24] MEDS: PENICILLIN G BENZATHINE 1,200,000 UNITS/2ML SYRINGE 1200000 UNIT IM (13:03)
[2024-01-24 13:22] VITALS: BP 112/72; PULSE 63; RESP 18; TEMP 37.1; O2SAT 96
== END 2024-01-24 13:22 | disposition home or self-care (01) ==
PROVIDERS: Emergency Provider Nurse Practitioner Family; PCP Nurse Practitioner Family
DX: J02.0 Streptococcal pharyngitis (principal); R07.0 Pain in throat; R51.9 Headache, unspecified; R50.9 Fever, unspecified; R09.81 Nasal congestion; R53.81 Other malaise; Z87.891 Personal history of nicotine dependence
CPT/HCPCS: 87804; 87880; 96372; 99204; 99212; G0463; J0561

== ENCOUNTER 2025-03-26 14:32 | Emergency (ER) | payer BC, SELFPAY ==
--- OUTSIDE RECORDS SUMMARY | 2025-03-26 14:39 | XMS_ITS | Continuity of Care Document ---
Author Organization [facility] Address [address] [facility] [place] [address] Care Team Providers Care Vice President Of Advertising Name Role Phone SHABANA WILHELMROCIORosibel Primary Care Provider [phone] Assessment Encounter Date Assessment Date Assessment LastModified by Organization Details LastModified Time 03/17/2025 03/17/2025 Risks, benefits, and alternatives of the medication have been discussed with the patient. She would like to move forward with a prescription of zepbound. [email or web address] Not available 03/17/2025 10:11:37 Plan of Treatment Reminders Order Date Submit Date Provider Last Modified By Organization Details Last Modified Time Details Appointments None recorded. Lab lipid panel, serum 2024 025 [facility], [address], [address], [place], [address], 5 14:08:16 TSH + free T4, serum 2024 025 [facility], [address], [place], [place], [address], 5 14:08:14 insulin, serum 2024 025 [facility], [address], [place], [place], [address], 5 14:08:19 CBC w/ auto diff 2024 025 [facility], [address], [place] [address], [place], [address], 5 14:08:14 CMP, serum or plasma 2024 025 [facility], [address], [place] [address], [place], [address], 5 14:08:15 erythrocyt e sedimentat ion rate by westergren method 2024 025 [facility], [address], [place], [place], [address], 5 14:08:18 rf (rheumatoi d factor), serum 2024 025 [facility], [address], [place] [address], [place], [address], 5 04:03:39 cobalamin and folate panel, serum 2024 025 [facility], [address], [place], [place], [address], 5 14:08:16 WANDER + rf (antinucle ar antibodies + rheumatoid factor), quantitati ve, serum 2024 025 [facility], [address], [place], [place], [address], 5 14:08:17 magnesium, serum or plasma 2024 025 [facility], [address], [place], [place], [address], 5 14:08:19 vitamin D, 25-hydroxy , total, serum 2024 025 [facility], [address], [place], [place], [address], 5 14:08:17 [facility], [address], [place], [address], 5 16:40:14 Procedures None recorded. Surgeries None recorded. Imaging None recorded. Medication Orders Zepbound 2.5 mg/0.5 mL subcutaneo us pen injector 2024 025 [facility], [address] [place] [address], [place], [address], 5 10:12:43 Patient TargetsNo targets recorded. Patient Instructions Encounter Date Encounter Id Patient Instructions Last Modified By Organization Details Last Modified Time 03/17/2025 [id number] Treament Plan: Patient will start medication as directed. Patient will continue exercise, watch calorie intake, and follow up for weight check in 1 month. [email or web address] Not available 03/17/2025 09:32:55 Reason for Referral Lymphedema Consult for Liped john Referring Physician: Garrison Salamanca, Family Medicine, Encounter Date: 03/17/2025 Problems Name Problem SNOMED Code Status Onset Date Resolution Date Notes Provider Name and Address Organization Details Recorded Time Anxiety 41851354 Active 022 Shabanajordon clint, [employer] [address], [place], [address], [place] - [facility] 2 11:51:10 Depressive disorder 23969265 Active 022 Shabanajordon clint, [employer] [address], [place], [address], [place] - [facility] 2 11:51:25 Obesity 305635839 Active 023 Shabanajordon Salamanca, [employer] [address], [place], [address], [place] - [facility] 3 16:36:41 Problem Notes None recorded. Medical Equipment None Reported. Allergies Allergen ID Allergen Name Allergen Category Reaction Reaction Severity Criticality Documentation Date Start Date Code Code System Note Provider Name and Address Organization Details Recorded Time 29394 Substance with sulfonami de structure and antibacte rial mechanism of action (substanc e) medicatio n vomiting Not available Not available 07/22/20162007 21668 8003 SNOMED React ion: Nause a/vom iting ; Comme nt: Sulfo namid es; Not Available [facility] 6 09:27:28 Medications Name Sig Start Date Stop Date Status Note LastModified by Organization Details LastModified Time minoxidil dexamethaso ne dutasteride tretinoin 5% 0.1% 0.05% 0.025% solution # Apply to scalp once daily. 03/17 completed Not Available Not Available Not Available tretinoin aloe vera 0.025% 1% cream # apply pea sized amount to the face at bedtime. Follow with moisturiz er 03/17 completed Not Available Not Available Not Available Anucort-HC 25 mg suppository INSERT 1 SUPPOSITO RY TWICE DAILY RECTALLY FOR 14 DAYS 09/30 completed Not Available Not Available Not Available phentermine 37.5 mg tablet 01/26 completed Not Available Not Available Not Available oxycodone-a cetaminophe n 5 mg-325 mg tablet 09/30 completed Not Available Not Available Not Available metoclopram alta 5 mg tablet TAKE ONE TABLET BY MOUTH FOUR TIMES DAILY FOR 14 DAYS (take 30 minutes BEFORE meals) 07/22 completed Not Available Not Available Not Available cephalexin 500 mg capsule Take 1 capsule twice a day by oral route for 7 days. 08/25 completed Not Available Not Available Not Available bupropion HCl 75 mg tablet TAKE ONE (1) TABLET DAILY BY ORAL ROUTE FOR 14 DAYS. then increase to 1 tab bid x 2 weeks 03/17 completed Not Available Not Available Not Available omeprazole 20 mg capsule,del ayed release TAKE 2 CAPSULES BY MOUTH EVERY DAY 09/30 completed Not Available Not Available Not Available norgestimat e-ethinyl estradiol 0.18mg/0.21 5mg/0.25mg- 0.035mg(28) tablet 1 po daily as directed 09/30 completed Not Available Not Available Not Available dexamethaso ne sodium phosphate 4 mg/mL injection solution Inject 1 mL as needed by intramusc ular route. 08/25 completed Not Available Not Available Not Available azelastine 137 mcg (0.1 %) nasal spray TWO (2) SPRAY INTRANASA LLY TWICE A DAY; ADMINISTE R INTO EACH NOSTRIL 09/30 completed Not Available Not Available Not Available methylpredn isolone 4 mg tablets in a dose pack TAKE ACCORDING TO PACKAGE INSTRUCTI ONS --TAKE WITH FOOD-- -- FINISH ALL MEDICINE -- 09/30 completed Not Available Not Available Not Available clobetasol 0.05 % scalp solution APPLY SOLUTION TOPICALLY TO SCALP AT BEDTIME FOR 30 DAYS STRAIGHT 09/30 completed Not Available Not Available Not Available medroxyprog esterone 150 mg/mL intramuscul ar suspension Inject 1 mL by intramusc ular route as directed. 01/26 completed Not Available Not Available Not Available escitalopra m 5 mg tablet TAKE ONE (1) TABLET EVERY DAY BY ORAL ROUTE. 01/26 completed Not Available Not Available Not Available Effexor XR 50mg daily 08/25 completed Not Available Not Available Not Available levocetiriz ine 5 mg tablet TAKE 1 TABLET BY MOUTH EVERY DAY 09/30 completed Not Available Not Available Not Available Ferate 240 mg (27 mg iron) tablet TAKE 1 TABLET BY MOUTH ONCE DAILY 07/22 completed Not Available Not Available Not Available Wegovy 1.7 mg/0.75 mL subcutaneou s pen injector active Not Available Not Available Not Available Wegovy 1 mg/0.5 mL subcutaneou s pen injector Inject 1 mg under the skin weekly for 4 weeks. 09/30 completed Not Available Not Available Not Available Wegovy 0.25 mg/0.5 mL subcutaneou s pen injector Inject 1 mg every week by subcutane ous route. 09/30 completed Not Available Not Available Not Available Wegovy 0.5 mg/0.5 mL subcutaneou s pen injector INJECT 0.5 MG TWICE A WEEK BY SUBCUTANE OUS ROUTE. 09/30 completed Not Available Not Available Not Available Mounjaro 2.5 mg/0.5 mL subcutaneou s pen injector active Not Available Not Available Not Available Zepbound 2.5 mg/0.5 mL subcutaneou s pen injector active Not Available Not Available Not Available Vitals Date Recorded Body height Body mass index (BMI) Body weight Heart rate Oxygen saturation Oxygen saturation in Arterial blood by Pulse oximetry Respiratory rate Systolic blood pressure Diastolic blood pressure Provider Name and Address Organization Details Last Updated DateTime 5 162.56 cm 31.2 kg/m2 62579.0 2 g 58 /min 99 % 99 % 18 /min 118 mm[Hg] 72 mm[Hg] Yasmin Mcclain [place] - [facility] 5 09:29:00 Social History Question Answer Notes LastModified by Organizat ion Details LastModified Time Tobacco Smoking Status Former Smoker Shannan jacome, [place] - [facility] 07/22/2022 11:33:01 Do You Have An Advance Directive? No Information not available 07/22/2022 Are You Blind Or Do You Have Difficulty Seeing? No Information not available 07/22/2022 What Is Your Level Of Caffeine Consumption? Occasional Information not available 07/22/2022 In The 14 Days Before Symptom Onset, Have You Had Close Contact With A Laboratory-confir med COVID-19 While That Case Was Ill? No Information not available 07/22/2022 In The 14 Days Before Symptom Onset, Have You Had Close Contact With A Person Who Is Under Investigation For COVID-19 While That Person Was Ill? No Information not available 07/22/2022 Have You Been To An Area Known To Be High Risk For COVID-19? No Information not available 07/22/2022 Are You Deaf Or Do You Have Serious Difficulty Hearing? No Information not available 07/22/2022 What Type Of Diet Are You Following? REGULAR Information not available 07/22/2022 Have You Processed Blood Or Body Fluids From An Ebola Virus Disease Patient Without Appropriate PPE? No Information not available 07/22/2022 Do You Reside In Or Have You Traveled To An Area Where Ebola Virus Transmission Is Active? No Information not available 07/22/2022 What Is The Highest Grade Or Level Of School You Have Completed Or The Highest Degree You Have Received? [id number] Information not available 07/22/2022 Have There Been Any Changes To Your Family Or Social Situation? Yes Doesn't Want To Be Around People, Just Had A Baby 4 Months Ago Information not available 07/22/2022 What Is The Fluoride Status Of Your Home? Fluoridated Information not available 07/22/2022 When Did You Quit Smoking? 6-10yearssince lastcigarette Age 32 Information not available 03/17/2025 Have You Recently Or Are You Planning To Travel To An Area With Zika Virus? No Information not available 07/22/2022 Do You Have A Medical Power Of Stitchdown Toe Former? No Information not available 07/22/2022 What Was The Date Of Your Most Recent Tobacco Screening? 03/17/2025 Information not available 03/17/2025 How Many Children Do You Have? 2 Information not available 07/22/2022 What Is Your Current Pack Years? 10packyears Information not available 03/17/2025 What Is Your Relationship Status? Single Information not available 07/22/2022 Are You Sexually Active? Yes Information not available 07/22/2022 Do You Have Smoke And Carbon Monoxide Detectors In Your Home? Yes Information not available 07/22/2022 At What Age Did You Start Smoking Tobacco? 16 Information not available 03/17/2025 Are You Passively Exposed To Smoke? No Information no t available 07/22/2022 How Much Tobacco Do You Smoke? 0.5 PPD Information not available 03/17/2025 Has Tobacco Cessation Counseling Been Provided? No Information not available 03/17/2025 How Many Years Have You Smoked Tobacco? 20 Information not available 07/22/2022 Do You Have Difficulty Walking Or Climbing Stairs? No Information not available 07/22/2022 Sex: Female Functional Status Question Answer Note LastModified by Organizat ion Details LastModified Time Do you or have you ever used smokeless tobacco? Never used smokeless tobacco Information not available 03/17/2025 Are you currently employed? Yes Information not available 07/22/2022 Do you have transportation difficulties? No Information not available 07/22/2022 Are you able to care for yourself? Yes Information n ot available 07/22/2022 Do you have difficulty dressing or bathing? No Information not available 07/22/2022 Do you or have you ever used e-cigarettes or vape? Former user of electronic cigarettes Information not available 03/17/2025 What is your exercise level? Occasional Information not available 07/22/2022 Do you use any illicit or recreational drugs? No Information not available 07/22/2022 Do you or have you ever used any other forms of tobacco or nicotine? Yes Information not available 07/22/2022 What is your level of alcohol consumption? None Information not available 07/22/2022 What is your status? Not Information no t available 07/22/2022 Are you able to walk? YESWOREST Information not available 07/22/2022 Do you have difficulty doing errands alone? No Information not available 07/22/2022 What is your occupation? [employer] Information not available 07/22/2022 Mental Status Question Answer Note LastModified by Organizat ion Details LastModified Time Do you feel stressed (tense, restless, nervous, or anxious, or unable to sleep at night)? [id number] Information not available 07/22/2022 Do you have difficulty concentrating, remembering or making decisions? No Information no t available 07/22/2022 Family History Relationship Description Onset Age of this Age Resolved Age Notes LastModified by Organization Details LastModified Time Father No current problems or disability [email or web address] Not available 09/06 09:42:08 Mother No current problems or disability [email or web address] Not available 09/06 09:42:08 Medical History Condition Response Pancreatitis N Coronary Artery Disease N Other N Gout N Atrial Fibrillation N congenital heart disease N Blood Diseases N Kidney Stones N Hyperthyroidism N Blood Transfusion N Rheumatoid arthritis N Erectile Dysfunction N amputation N Colonoscopy N Skin Lesions N COPD N Depression N Pneumonia N Incontinence N Murmur N Edema N Alzheimer's Disease N Migraine Headaches N Tobacco Abuse N Anxiety Disorder N Hemorrhoids N Muscle, Joint, or Bone Problems N Obesity N Vision or Eye Problems N Arthritis N Restless Leg Syndrome N Polyps N Infertility N Mental Disorder N Carpal Tunnel N Acid Reflux (GERD) N Cancer N Varicosities N Stroke N Tendonitis N Crohn's Disease N Hypercholesterolemia N Skin Cancer N Headaches N Fibromyalgia N Anal Fissure N Irritable Bowel Syndrome N Kidney Disease N Heart Problems N Ear or Hearing Problems N Hospitalizations N Gallstones N Kidney or Bladder Problems N Goiter N Acne N Skin Problems N Eating Disorder N Chamorro's Esophagus N Hypertriglyceridemia N MRSA exposure N Constipation N Embolism N Vitamin B12 Deficiency N Deviated Septum N Tuberculosis N AIDS/HIV N Myocardial Infarction N Asthma N Mitral Valve Disorders N Vertigo N Hepatitis N Thyroid Cancer N Neuropathy N Pulmonary Embolism N History of DVT N Herniated Disc N Chronic Ear Infections N Chicken Pox N Autism Spectrum Disorder (ASD) N Von Willebrands Disease N Thrombophilias N Breast Cancer N Hernia N Plantar Fasciitis N Hospital Admission Other Than N Lung Disease N Hypothyroidism N Defects or Inherited Disease N Developmental or Behavioral Disorders N Breast Problem N Difficulty Swallowing N Ovarian Cyst N Anesthesia Complications N Testosterone Deficiency N Meniere's disease N Head Injury/Concussion N Interstitial Cystitis N Congenital Anomalies N Hypoglycemia N Blood clot N Vitamin D Deficiency N Cellulitis N Endometriosis N Fracture N Bladder or Kidney Problems N Colorectal Cancer N Liver Disease N Panic Disorder N Schizophrenia N Concussion N Spina Bifida N Allergies/Hayfever N Osteoarthritis N Parkinson's Disease N Disc Protrusion N STI N Esophagitis N Angina N Thyroid Problems N GI Problems N ADD/ADHD N Anemia N Multiple Sclerosis N Abnormal PAP N Lumbago N Mental Illness N Psychiatric Illness N Diabetes N Ovarian Cancer N Bedwetting N Degenerative Disc Disease N Seizures/Epilepsy N Congestive Heart Failure (CHF) N Hyperlipidemia N Syncope N Insomnia N Eczema N Abuse/Domestic Violence N Attention Deficient Disorder N Diverticulitis N Dementia N Ulcerative colitis N Cerebrovascular Disease N Depression N Guillain-Section N Sleep Apnea N Aneurysm N Bronchitis N Heart Disease N Suicidal Ideation N Pre-Eclampsia N Hypertension N Osteoporosis N Gynecological History Statement/Question Response Last Annual Exam/Provider Date of LMP Sexually Active? Y Menses Monthly N Current Control Method None LMP Unknown Desired Control Method Obstetrics History GPAL:G 2 P 2 0 0 2 Type Value Multiple Births 0 Full Term 2 Induced 0 Spontaneous 0 Premature 0 Living 2 Ectopics 0 Total 2 Immunizations Vaccine Type Date Status Note Provider Nam e and Address Organization Details Recorded Time Influenza, split virus, quadrivalent, preservative 2 completed Shannan James null, [place] - [facility] 08/02/2022 16:19:20 Influenza, split virus, quadrivalent, preservative 3 completed Yasmin Mcclain null, - [facility] 07/27/2023 15:44:11 Td (adult), 2 Lf tetanus toxoid, preservative free, adsorbed 2 completed Shannan James null, [place] - [facility] 08/02/2022 14:41:49 Hep B, adolescent or pediatric 4 completed Shannan James null, [place] [facility] 08/02/2022 14:41:49 MMR 8 completed Shannan James null, [place] [facility] 08/02/2022 14:41:49 Hep B, adolescent or pediatric 3 completed Shannan James null, - [facility] 08/02/2022 14:41:49 COVID-19, mRNA, LNP-S, PF, 100 mcg/0.5mL dose or 50 mcg/0.25mL dose 1 completed Shannan James null, - [facility] 08/02/2022 14:41:49 COVID-19, mRNA, LNP-S, PF, 100 mcg/0.5mL dose or 50 mcg/0.25mL dose 2 completed Shannan James null, - [facility] 08/02/2022 14:41:49 COVID-19, mRNA, LNP-S, PF, 100 mcg/0.5mL dose or 50 mcg/0.25mL dose 1 completed Shannan James null, [place] - [facility] 08/02/2022 14:41:49 Hep B, adolescent or pediatric 3 completed Shannan James null, [place] [facility] 08/02/2022 14:41:49 Past Encounters Encounter ID Performer Location Encounter Start Date Encounter Closed Date Diagnosis/Indication Diagnosis SNOMED-CT Code Diagnosis ICD10 Code Diagnosis Note [id number] Garrison Salamanca APRN [address] [address] 03/17/2025 09:18:04 03/17/2025 10:21:17 Obesity 868070297 E66.9 continue a low fat/calori e/carb dietexerci se plan exercise 30 mins a day 3 x a week Lipedema 932909972 R60.9 Fatigue 73074616 R53.83 Health Concerns Section Related Observation LastModified by Organization Detai ls LastModified Time None Recorded Concern Status LastModified by Organization Details LastModified Time None Recorded Payers Encounter Date Sequence Insurance Name Policy Number Policy Carlton Covered Member ID Carlton Member ID Guarantor Name 03/17/2025 1 [employer] ([place] [id number] Chloe N Dave [id number] Chloe Dave Notes Date Note Type Note Provider Name and Address Organization Details Recorded Time 03/17/2025 text/html 39 year old female who presents to the office today for a follow up onweight- would like to loose 25-30 more lbshas concerns of having possible lipidemia would like referralstates has been exercising 2 hours a day and arms and legs continue to stay big no matter what she does.feeling fatigued Garrison Salamanca, [employer] [address], [place], [address], [place] - [facility] 03/17/2025 10:13:31 OBGyn Episode No OBEpisode recorded.
[2025-03-26 14:40] VITALS: BP 137/69; PULSE 85; RESP 17; TEMP 37; O2SAT 100; BMI 30.9
--- OUTSIDE RECORDS SUMMARY | 2025-03-26 14:40 | XMS_ITS | Data Portability ---
Author Organization [facility] Address [address] [place] [address] Care Team Providers Care Sharepoint Manager Name Role Phone LIAM OROZCO Primary Care Provider [phone] Assessment Encounter Date Assessment Date Assessment LastModified [...] [address], [address], [place], [address], 5 14:08:16 TSH + free T4, serum 2024 025 [facility], [address], [place] [address], [place], [address], 5 14:08:14 insulin, serum 2024 025 [facility], [address], [place] [address], [place], [address], 5 14:08:19 CBC w/ auto diff 2024 025 [facility], [address], [place] [address], [place], [address], 5 14:08:14 CMP, serum or plasma 2024 025 [facility], [address], [place], [place], [address], 5 14:08:15 erythrocyt e sedimentat ion rate by westergren method 2024 025 [facility], [address], [place], [place], [address], 5 14:08:18 rf (rheumatoi d factor), serum 2024 025 [facility], [address], [place], [place], [address], 5 04:03:39 cobalamin and folate panel, serum 2024 025 [facility], [address], [place], [place], [address], 5 14:08:16 WANDER + rf (antinucle ar antibodies + rheumatoid factor), quantitati ve, serum 2024 025 [facility], [address], [place], [place], [address], 5 14:08:17 magnesium, serum or plasma 2024 025 [facility], [address], [place], [place], [address], 5 14:08:19 vitamin D, 25-hydroxy , total, serum 2024 025 [facility], [address], [place], [place], [address], 5 14:08:17 rapid strep group A, throat 2023 024 [facility], [address] [place] [address], [address], 4 10:39:02 rapid flu (A+B) 2023 024 [facility], [address] [place] [address], [address], 4 10:39:02 rapid SARS CoV + SARS CoV 2 Ag, QL IA, respirator y specimen 2023 024 [facility], [address] [place] [address], [address], 4 10:39:02 test, urine 2022 023 [facility], [address] [place] [address], [address], 3 15:02:37 Referral lymphedema consult 2024 025 [facility], [address], [place], [address], 5 16:40:14 Procedures None recorded. Surgeries None recorded. Imaging None recorded. Medication Orders Zepbound 2.5 mg/0.5 mL subcutaneo us pen injector 2024 025 [facility], [facility], [place], [address], 5 10:12:43 bupropion HCl 75 mg tablet 2023 024 [facility], [address] [facility], [place], [address], 5 09:47:02 Wegovy 0.25 mg/0.5 mL subcutaneo us pen injector 2022 023 [facility], [address] [facility], [place], [address], 4 08:32:43 Ortho Tri-Cyclen (28) 0.18 mg(7)/0.21 5mg(7)/0.2 5 mg(7)-0.03 5 mg tablet [address], [address], 4 08:33:04 Lexapro 5 mg tablet [address], [address], 3 11:50:37 Patient TargetsNo targets recorded. Patient Instructions Encounter Date Encounter Id Patient Instructions Last Modified By Organization Details Last Modified Time 01/26/2023 [id number] learning about healthy weight efryman Not available 01/26/2023 12:08:38 body mass index: care instructions efryman Not available 01/26/2023 12:08:38 09/30/2024 [id number] sore throat in children: care instructions efryman Not available 09/30/2024 10:39:02 learning about healthy weight efryman Not available 09/30/2024 10:39:02 body mass index: care instructions efryman Not available 09/30/2024 10:39:02 learning about healthy weight efryman Not available 09/30/2024 10:39:02 body mass index: care instructions efryman Not available 09/30/2024 10:39:02 03/17/2025 [id number] Treament Plan: Patient will start medication as directed. Patient will continue exercise, watch calorie intake, and follow up for weight check in 1 month. bstears Not available 03/17/2025 09:32:55 Reason for Referral Lymphedema Consult for Liped john Referring Physician: Liam Orozco, Family Medicine, Encounter Date: 03/17/2025 Results Created Date Observation Date Name Description Value Unit Range Abnormal Flag Note LastModifiedBy Organization Detail LastModifiedTime 12/12/19 23 12/12/2022 pregn kb test, urine HCG negati ve Not Available [address], [address], 12/12/2022 15:00:57 09/30/20 24 09/30/2024 rapid SARS CoV + SARS CoV 2 Ag, QL IA, respi rator y speci men SARS CoV antigen Negati ve Not Available [address], [address], 09/30/2024 08:56:40 09/30/20 24 09/30/2024 rapid flu (A+B) Flu negati ve Not Available [address], [address], 09/30/2024 08:56:27 09/30/20 24 09/30/2024 rapid flu (A+B) Type Both A & B Not Available [address], [address], 09/30/2024 08:56:27 09/30/20 24 09/30/2024 rapid strep group A, throa t Strep negati ve Not Available [address], [address], 09/30/2024 08:24:29 09/30/20 24 09/30/2024 rapid strep group A, throa t Culture No Not Available [address], [address], 09/30/2024 08:24:29 03/17/20 25 03/18/2025 TSH+F REE T4 TSH 2.110 uIU/m L 0.450- 4.500 normal Not Available [facility] ([facility]) [address] [place], [address], 03/19/2025 14:08:14 03/17/20 25 03/18/2025 TSH+F REE T4 T4,free(dire ct) 1.17 NG/dL 0.82-1 .77 normal Not Available [facility] ([facility]) [address] [place], [address], 03/19/2025 14:08:14 03/17/20 25 03/18/2025 CBC WITH DIFFE RENTI AL/PL ATELE T WBC 4.4 x10e3 /uL 3.4-10 .8 normal Not Available [facility] ([facility]) [address] [place], [address], 03/19/2025 14:08:14 03/17/20 25 03/18/2025 CBC WITH DIFFE RENTI AL/PL ATELE T RBC 4.94 x10e6 /uL 3.77-5 .28 normal Not Available [facility] ([facility]) [address] [place], [address], 03/19/2025 14:08:14 03/17/20 25 03/18/2025 CBC WITH DIFFE RENTI AL/PL ATELE T hemoglobin 13.9 g/dL 11.1-1 5.9 normal Not Available [facility] ([facility]) [address] [place], [address], 03/19/2025 14:08:14 03/17/20 25 03/18/2025 CBC WITH DIFFE RENTI AL/PL ATELE T hematocrit 45.6 % 34.0-4 6.6 normal Not Available [facility] ([facility]) [address] [place], [address], 03/19/2025 14:08:14 03/17/20 25 03/18/2025 CBC WITH DIFFE RENTI AL/PL ATELE T MCV 92 fL 79-97 normal Not Available [facility] ([facility]) [address] [facility], [place], [address], 03/19/2025 14:08:14 03/17/20 25 03/18/2025 CBC WITH DIFFE RENTI AL/PL ATELE T MCH 28.1 pg 26.6-3 3.0 normal Not Available [facility] ([facility]) [address] [place], [address], 03/19/2025 14:08:14 03/17/20 25 03/18/2025 CBC WITH DIFFE RENTI AL/PL ATELE T MCHC 30.5 g/dL 31.5-3 5.7 below low normal Not Available [facility] ([facility]) [address] [facility], [place], [address], 03/19/2025 14:08:14 03/17/20 25 03/18/2025 CBC WITH DIFFE RENTI AL/PL ATELE T RDW 12.9 % 11.7-1 5.4 Not Available [facility] ([facility]) [address] [place], [address], 03/19/2025 14:08:14 03/17/20 25 03/18/2025 CBC WITH DIFFE RENTI AL/PL ATELE T platelets 304 x10e3 /uL 150-45 0 normal Not Available [facility] ([facility]) [address] [place], [address], 03/19/2025 14:08:14 03/17/20 25 03/18/2025 CBC WITH DIFFE RENTI AL/PL ATELE T neutrophils 53 % not estab. normal Not Available [facility] ([facility]) [address] [place], [address], 03/19/2025 14:08:14 03/17/20 25 03/18/2025 CBC WITH DIFFE RENTI AL/PL ATELE T lymphs 34 % not estab. normal Not Available [facility] ([facility]) [address] [place], [address], 03/19/2025 14:08:14 03/17/20 25 03/18/2025 CBC WITH DIFFE RENTI AL/PL ATELE T monocytes 9 % not estab. normal Not Available [facility] ([facility]) [address] [place], [address], 03/19/2025 14:08:14 03/17/20 25 03/18/2025 CBC WITH DIFFE RENTI AL/PL ATELE T eos 3 % not estab. normal Not Available [facility] ([facility]) [address] [place], [address], 03/19/2025 14:08:14 03/17/20 25 03/18/2025 CBC WITH DIFFE RENTI AL/PL ATELE T basos 1 % not estab. normal Not Available [facility] ([facility]) [address] [place], [address], 03/19/2025 14:08:14 03/17/20 25 03/18/2025 CBC WITH DIFFE RENTI AL/PL ATELE T immature cells SKEIN INSPECTOR Not Available [facility] ([facility]) [address] [place], [address], 03/19/2025 14:08:14 03/17/20 25 03/18/2025 CBC WITH DIFFE RENTI AL/PL ATELE T neutrophils (absolute) 2.3 x10e3 /uL 1.4-7. 0 normal Not Available [facility] ([facility]) [address] [place], [address], 03/19/2025 14:08:14 03/17/20 25 03/18/2025 CBC WITH DIFFE RENTI AL/PL ATELE T lymphs (absolute) 1.5 x10e3 /uL 0.7-3. 1 normal Not Available [facility] ([facility]) [address] [place], [address], 03/19/2025 14:08:14 03/17/20 25 03/18/2025 CBC WITH DIFFE RENTI AL/PL ATELE T monocytes(ab solute) 0.4 x10e3 /uL 0.1-0. 9 normal Not Available [facility] ([facility]) [address] [facility], [place], [address], 03/19/2025 14:08:14 03/17/20 25 03/18/2025 CBC WITH DIFFE RENTI AL/PL ATELE T eos (absolute) 0.2 x10e3 /uL 0.0-0. 4 normal Not Available [facility] ([facility]) [address] [place], [address], 03/19/2025 14:08:14 03/17/20 25 03/18/2025 CBC WITH DIFFE RENTI AL/PL ATELE T baso (absolute) 0.0 x10e3 /uL 0.0-0. 2 normal Not Available [facility] ([facility]) [address] [place], [address], 03/19/2025 14:08:14 03/17/20 25 03/18/2025 CBC WITH DIFFE RENTI AL/PL ATELE T immature granulocytes 0 % not estab. Not Available [facility] ([facility]) [address] [place], [address], 03/19/2025 14:08:14 03/17/20 25 03/18/2025 CBC WITH DIFFE RENTI AL/PL ATELE T immature grans (abs) 0.0 x10e3 /uL 0.0-0. 1 Not Available [facility] ([facility]) [address] [place], [address], 03/19/2025 14:08:14 03/17/20 25 03/18/2025 CBC WITH DIFFE RENTI AL/PL ATELE T NRBC SKEIN INSPECTOR Not Available [facility] ([facility]) [address] [facility], [place], [address], 03/19/2025 14:08:14 03/17/20 25 03/18/2025 CBC WITH DIFFE MALU AL/MACHELLE Parra hematology comments: SKEIN INSPECTOR Not Available [facility] ([facility]) [address] [facility], [place], [address], 03/19/2025 14:08:14 03/17/20 25 03/18/2025 COMP. METAB OLIC PANEL (14) glucose 90 mg/dL 70-99 normal Not Available [facility] ([facility]) [address] [facility], [place], [address], 03/19/2025 14:08:15 03/17/20 25 03/18/2025 COMP. METAB OLIC PANEL (14) BUN 15 mg/dL 6-20 normal Not Available [facility] ([facility]) [address] [facility], [place], [address], 03/19/2025 14:08:15 03/17/20 25 03/18/2025 COMP. METAB OLIC PANEL (14) creatinine 0.78 mg/dL 0.57-1 .00 normal Not Available [facility] ([facility]) [address] [facility], [place], [address], 03/19/2025 14:08:15 03/17/20 25 03/18/2025 COMP. METAB OLIC PANEL (14) eGFR 100 mL/mi n/1.7 3 >59 normal Not Available [facility] ([facility]) [address] [facility], [place], [address], 03/19/2025 14:08:15 03/17/20 25 03/18/2025 COMP. METAB OLIC PANEL (14) BUN/creatini ne ratio 19 9-23 normal Not Available [facility] ([facility]) [address] [facility], [place], [address], 03/19/2025 14:08:15 03/17/20 25 03/18/2025 COMP. METAB OLIC PANEL (14) sodium 140 mmol/ L 134-14 4 normal Not Available [facility] ([facility]) [address] [facility] [place], [address], 03/19/2025 14:08:15 03/17/20 25 03/18/2025 COMP. METAB OLIC PANEL (14) potassium 4.3 mmol/ L 3.5-5. 2 normal Not Available [facility] ([facility]) [address] [facility] [place], [address], 03/19/2025 14:08:15 03/17/20 25 03/18/2025 COMP. METAB OLIC PANEL (14) chloride 104 mmol/ L 96-106 normal Not Available [facility] ([facility]) [address] [facility] [place], [address], 03/19/2025 14:08:15 03/17/20 25 03/18/2025 COMP. METAB OLIC PANEL (14) carbon dioxide, total 23 mmol/ L 20-29 normal Not Available [facility] ([facility]) [address] [facility] [place], [address], 03/19/2025 14:08:15 03/17/20 25 03/18/2025 COMP. METAB OLIC PANEL (14) calcium 9.3 mg/dL 8.7-10 .2 normal Not Available [facility] ([facility]) [address] [place], [address], 03/19/2025 14:08:15 03/17/20 25 03/18/2025 COMP. METAB OLIC PANEL (14) protein, total 7.2 g/dL 6.0-8. 5 normal Not Available [facility] ([facility]) [address] [facility] [place], [address], 03/19/2025 14:08:15 03/17/20 25 03/18/2025 COMP. METAB OLIC PANEL (14) albumin 4.5 g/dL 3.9-4. 9 normal Not Available [facility] ([facility]) [address] [facility] [place], [address], 03/19/2025 14:08:15 03/17/20 25 03/18/2025 COMP. METAB OLIC PANEL (14) globulin, total 2.7 g/dL 1.5-4. 5 Not Available [facility] ([facility]) [address] [facility] [place], [address], 03/19/2025 14:08:15 03/17/20 25 03/18/2025 COMP. METAB OLIC PANEL (14) bilirubin, total 0.3 mg/dL 0.0-1. 2 normal Not Available [facility] ([facility]) [address] [facility] [place], [address], 03/19/2025 14:08:15 03/17/20 25 03/18/2025 COMP. METAB OLIC PANEL (14) alkaline phosphatase 63 IU/L 44-121 normal Not Available [facility] ([facility]) [address] [facility] [place], [address], 03/19/2025 14:08:15 03/17/20 25 03/18/2025 COMP. METAB OLIC PANEL (14) AST (SGOT) 16 IU/L 0-40 normal Not Available [facility] ([facility]) [address] [place], [address], 03/19/2025 14:08:15 03/17/20 25 03/18/2025 COMP. METAB OLIC PANEL (14) ALT (SGPT) 14 IU/L 0-32 normal Not Available [facility] ([facility]) [address] [place], [address], 03/19/2025 14:08:15 03/17/20 25 03/18/2025 LIPID PANEL cholesterol, total 139 mg/dL 100-19 9 normal Not Available [facility] ([facility]) [address] [facility] [place], [address], 03/19/2025 14:08:16 03/17/20 25 03/18/2025 LIPID PANEL triglyceride s 33 mg/dL 0-149 normal Not Available [facility] ([facility]) [address] [facility] [place], [address], 03/19/2025 14:08:16 03/17/20 25 03/18/2025 LIPID PANEL HDL cholesterol 65 mg/dL >39 normal Not Available [facility] ([facility]) [address] [facility] [place], [address], 03/19/2025 14:08:16 03/17/20 25 03/18/2025 LIPID PANEL VLDL cholesterol nataly 9 mg/dL 5-40 Not Available [facility] ([facility]) [address] [place], [address], 03/19/2025 14:08:16 03/17/20 25 03/18/2025 LIPID PANEL LDL chol calc ([facility]) 65 mg/dL 0-99 Not Available [facility] ([facility]) [address] [facility] [place], [address], 03/19/2025 14:08:16 03/17/20 25 03/18/2025 LIPID PANEL LDL calc comment: SKEIN INSPECTOR Not Available [facility] ([facility]) [address] [place], [address], 03/19/2025 14:08:16 03/17/20 25 03/18/2025 VITAM IN B12 AND FOLAT E vitamin B12 542 pg/mL 232-12 45 normal Not Available [facility] ([facility]) [address] [place], [address], 03/19/2025 14:08:16 03/17/20 25 03/18/2025 VITAM IN B12 AND FOLAT E folate (folic acid), serum 6.8 NG/mL >3.0 normal A serum folat e jose cruz ntrat ion of less than 3.1 ng/mL is consi dered to repre sent clini nataly defic iency . Not Available [facility] ([facility]) [address] [facility], [place], [address], 03/19/2025 14:08:16 03/17/2003/18/2025 WANDER+R F QN rheumatoid factor (rf) <10.0 IU/mL <14.0 Not Available [facility] ([facility]) [address] [facility], [place], [address], 03/19/2025 14:08:17 03/17/2003/19/2025 WANDER+R F QN WANDER direct Positi ve negati ve abnormal Not Available [facility] ([facility]) [address] [facility], [place], [address], 03/19/2025 14:08:17 03/17/2003/18/2025 VITAM IN D, 25-HY DROXY vitamin D, 25-hydroxy 45.6 NG/mL 30.0-1 00.0 Vitam in D defic iency has been defin ed by the Insti tute of Medic ine and an [facility] Soc[facility] pract ice guide line as a level of serum 25-OH vitam in D less than 20 ng/mL (1,2) . The Endoc rine Socie ty went on to furth er defin e vitam in D insuf ficie ncy as a level betwe en 21 and 29 ng/mL (2). 1. IOM (Inst itute of Medic ine). 2010. Dieta ry refer ence vale es for calci um and D. Yanet meyer [place]: The Natio nal [facility] Press . 2. Janee pelaez [place], Stanislav hopson [place], Flori off-F errar i SR, et al. Evalu ation , treat ment, and preve ntion of vitam in D defic iency : an Endoc rine Socie ty clini nataly pract ice guide line. JCEM. 2010; 96(7) :1911 -30. Not Available [facility] ([facility]) [address] [facility], [place], [address], 03/19/2025 14:08:17 03/17/20 25 03/18/2025 SEDIM ENTAT ION RATE- WESTE RGREN sedimentatio n rate-westerg tal 17 mm/HR 0-32 normal Not Available [facility] ([facility]) [address] [facility], [place], [address], 03/19/2025 14:08:18 03/17/20 25 03/18/2025 MAGNE SIUM magnesium 1.9 mg/dL 1.6-2. 3 normal Not Available [facility] ([facility]) [address] [facility], [place], [address], 03/19/2025 14:08:19 03/17/20 25 03/18/2025 INSUL IN insulin 8.4 uIU/m L 2.6-24 .9 normal Not Available [facility] ([facility]) [address] [facility], [place], [address], 03/19/2025 14:08:19 01/01/20 24 01/01/2024 CT, sinus es, w/o contr ast No observ ation record ed. [email or web address] [facility] [address], [place], [address], 01/02/2024 10:12:53 Result Notes None recorded. 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 Medical Equipment None Reported. Allergies Allergen ID Allergen Name Allergen Category Reaction Reaction Severity Criticality Documentation Date Start Date Code Code System Note Provider Name and Address Organization Details Recorded Time 66038 Substance with sulfonami de structure and antibacte rial mechanism of action (substanc e) medicatio n vomiting Not available Not available 07/22/20162007 59876 8003 SNOMED React ion: Nause a/vom iting ; Comme nt: Sulfo namid es; Not Available [facility] 09:27[facility]28 Medications Name Sig Start Date Stop Date Status Note LastModified by Organization Details LastModified Time tretinoin aloe vera 0.025% 1% cream # apply pea sized amount to the face at bedtime. Follow with moisturiz er 03/17 completed Not Available Not Available Not Available minoxidil dexamethaso ne dutasteride tretinoin 5% 0.1% [...] height Body mass index (BMI) Body weight Body temperature Heart rate Oxygen saturation Oxygen saturation in Arterial blood by Pulse oximetry Respiratory rate Systolic blood pressure Diastolic blood pressure Provider Name and Address Organization Details Last Updated DateTime 3 162.56 cm 37.5 kg/m2 21116.2 4 g 98 [degF] 88 /min 98 % 98 % 18 /min 130 mm[Hg] 86 mm[Hg] Shannan James [place] - [facility] 3 14:06:11 Date Recorded Body height Body mass index (BMI) Body weight Body temperature Heart rate Oxygen saturation Oxygen saturation in Arterial blood by Pulse oximetry Respiratory rate Systolic blood pressure Diastolic blood pressure Provider Name and Address Organization Details Last Updated DateTime 3 162.56 cm 38.2 kg/m2 382731. 31 g 98.2 [degF] 60 /min 98 % 98 % 18 /min 118 mm[Hg] 80 mm[Hg] Shannan James [place] - [facility] 3 11:49:56 Date Recorded Body height Body mass index (BMI) Body weight Heart rate Oxygen saturation Oxygen saturation in Arterial blood by Pulse oximetry Respiratory rate Systolic blood pressure Diastolic blood pressure Provider Name and Address Organization Details Last Updated DateTime 5 162.56 cm 31.2 kg/m2 23870.0 2 g 58 /min 99 % 99 % 18 /min 118 mm[Hg] 72 mm[Hg] Yasmin Stears [place] - [facility] 5 09:29:00 Date Recorded Body height Provider Name an d Address Organization Details Last Updated DateTime 07/27/2023 162.56 cm Yasmin Stears [place] - [facility] 07/27 15:42:07 Date Recorded Body weight Heart rate Oxygen saturation Oxygen saturation in Arterial blood by Pulse oximetry Respiratory rate Body mass index (BMI) Body height Systolic blood pressure Diastolic blood pressure Provider Name and Address Organization Details Last Updated DateTime 4 86291.8 1 g 57 /min 97 % 97 % 18 /min 31.2 kg/m2 162.56 cm 112 mm[Hg] 68 mm[Hg] Shannan James [place] - [facility] 4 08:32:32 Social History Question Answer Notes LastModified by [...] Or The Highest Degree You Have Received? [id number] Information not available 07/22/2022 Have There Been [...] Do You Have A Medical Power Of Fuse Maker? 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 [id number] Information not available 07/22/2022 Do you have [...] colitis N Cerebrovascular Disease N Depression N Guillain-[place] N Sleep Apnea N Aneurysm N Bronchitis [...] quadrivalent, preservative 3 completed Yasmin Mcclain null, [place] - [facility] 07/27/2023 15:44:11 Td (adult), 2 Lf tetanus toxoid, preservative free, adsorbed 2 completed Shannan [place] - [facility] 08/02/2022 14:41:49 Hep B, adolescent or pediatric 4 completed Sh[place] - [facility] 08/02/2022 14:41:49 MMR 8 completed Sh[place] [facility] 08/02/2022 14:41:49 Hep B, adolescent or pediatric 3 completed Sh[place]an [place] [facility] 08/02/2022 14:41:49 COVID-19, mRNA, LNP-S, PF, 100 mcg/0.5mL dose or 50 mcg/0.25mL dose 1 completed Shannan [place] - [facility] 08/02/2022 14:41:49 COVID-19, mRNA, LNP-S, PF, 100 mcg/0.5mL dose or 50 mcg/0.25mL dose 2 completed Shannan [place] - [facility] 08/02/2022 14:41:49 COVID-19, mRNA, LNP-S, PF, 100 mcg/0.5mL dose or 50 mcg/0.25mL dose 1 completed Shann[place] - [facility] 08/02/2022 14:41:49 Hep B, adolescent or pediatric 3 completed Shannan James null, [place] - [facility] 08/02/2022 14:41:49 Past Encounters Encounter ID Performer Location Encounter Start Date Encounter Closed Date Diagnosis/Indication Diagnosis SNOMED-CT Code Diagnosis ICD10 Code Diagnosis Note [id number] [facility] [address] [place] [address] 11/08/2005 00:00:00 [id number] [facility] [address] [place] [address] 12/12/2005 00:00:00 [id number] [facility] [address] [place] [address] 5 12/26/2006 00:00:00 [id number] [facility] [address] [place] [address] 11/09/2007 00:00:00 [id number] [facility] [address] [place] [address] 05/01/2008 00:00:00 [id number] [facility] [address] [place] [address] 06/16/2006 00:00:00 [id number] Liam Orozco [address] [address] 07/22/2022 11:09:56 07/22/2022 12:11:05 Contraception care management 931942384 Z30.9 Anxiety 79464941 F41.9 Depressive disorder 3548 9007 F32.A Body mass index 30+ - obesity 862553305 Z68.34 Fatigue 25929982 R53.83 [id number] Liam Orozco [address] [address] 07/26/2022 14:10:26 07/26/2022 14:58:13 Anxiety 64122958 F41.9 Patient identified triggers for anxiety and impact of anxious thinking on functionin g. Discussed strategies to regulate symptoms and need for compliance with treatment. Depressive disorder 7918 1857 F32.A At this time patient is symptomati c; symptoms are stable. Patient denies suicidal or homicidal ideation. Plan to change medication . Plan to re-evaluat e patient at follow up; patient also referred to counseling services and community resources. Patient was advised to call or come in if symptoms worsen. Patient verbalized understand ing. [id number] Liam Orozco [employer] [address] [address] 08/02/2022 14:18:17 08/02/2022 14:38:01 Uses depot contraception 400136477 Z30.013 Influenza vaccine needed 3306717656 106 Z[id number] [facility] [address] [address] 08/11/2022 10:38:33 08/11/2022 11:44:24 Acute maxillary sinusitis 58350470 J01.00 [id number] [facility] peteyvonne[address] [address] 08/25/2022 13:37:09 08/25/2022 14:27:02 Body mass index 30+ - obesity 623783871 Z68.39 Pt compliant with plan of Alessandro reviewedme dication compliance discussedL ast uds:Control substance agreement on file Obesity 141891246 E66.3 continue a low fat/calori e/carb dietstart a exercise plan exercise 30 mins a day 3 x a week Long-term drug therapy 503723925 Z79.[id number] [address] 09/06/2022 09:39:24 09/06/2022 10:16:02 COVID-19 995574315 U07.1 no sign of a bacterial infection. likely viral. viruses can take 7-14 days to run their course. nasal saline and bulb syringe to remove nasal drainage to help with congestion . monitor temp. Tylenol or Motrin as needed for pain or fever. encourage fluids, water, Gatorade, power aide, Pedialyte if infant/tod dler/child warm salt water gargles warm fluids sore throat lozenges sleep elevated humidifier /vaporizer follow up immediatel y for new or worsening symptoms or no noticeable improvemen t over the next 48-72 hours [id number] [facility] [address] [address] 09/29/2022 09:21:02 09/29/2022 09:54:31 Body mass index 30+ - obesity 294342123 Z68.39 Pt compliant with plan of careKasper reviewedme dication compliance discussedL ast uds:Control substance agreement on file Anxiety 35008555 F41.9 Patient identified triggers for anxiety and impact of anxious thinking on functionin g. Discussed strategies to regulate symptoms and need for compliance with treatment. [id number] Liam Orozco APR[address] [address] 10/27/2022 15:38:43 10/27/2022 16:05:36 Depressive disorder 76688947 F32.A Anxiety 81387828 F41.9 Patient identified triggers for anxiety and impact of anxious thinking on functionin g. Discussed strategies to regulate symptoms and need for compliance with treatment. Obesity 611086174 E66.3 continue a low fat/calori e/carb dietstart a exercise plan exercise 30 mins a day 3 x a week Body mass index 30+ - obesity 714521908 Z68.39 Pt compliant with plan of careKasper reviewedme dication compliance discussedL ast uds:Control substance agreement on filenext month will go off med for a drug holiday while watching diet and exercising . [id number] Liam Orozco [address] [address] 12/12/2022 14:00:25 12/12/2022 15:32:42 Anxiety 74091140 F41.9 Patient identified triggers for anxiety and impact of anxious thinking on functionin g. Discussed strategies to regulate symptoms and need for compliance with treatment. medication discussed with pt- start low dose recheck in 2 weeks and increase dose if needed [facility] 157418454 Z30.02 Depressive disorder 3548 9007 F32.A [id number] Liam Orozco [address] [address] 01/26/2023 11:44:07 01/26/2023 12:05:07 Obesity 506979343 E66.3 continue a low fat/calori e/carb dietstart a exercise plan exercise 30 mins a day 3 x a week Body mass index 30+ - obesity 244939188 Z68.38 medication discussed with pt [id number] Liam Orozco [address] [address] 07/27/2023 15:25:31 07/27/2023 16:55:55 Influenza vaccine needed 4069837651 106 Z23 [id number] Liam Orozco [address] [address] 09/30/2024 08:03:09 09/30/2024 09:16:01 Pharyngitis 808339719 J02.9 tylenol or motrin as neededincr ease fluids- if worsen or no improvemen t return Anxiety 95100570 F41.9 Patient identified triggers for anxiety and impact of anxious thinking on functionin g. Discussed strategies to regulate symptoms and need for compliance with treatment. medication discussed with pt- start low dose recheck in 2 weeks and increase dose if needed Body mass index 30+ - obesity 215515556 Z68.31 31.2 Obesity 371320506 E66.9 continue a low fat/calori e/carb dietexerci se plan exercise 30 mins a day 3 x a week [id number] Liam Orozco [address] [address] 03/17/2025 09:18:04 03/17/2025 10:21:17 Obesity 634919913 E66.9 continue a low fat/calori e/carb dietexerci se plan exercise 30 mins a day 3 x a week Lipedema 831811757 R60.9 Fatigue 51945563 R53.83 Health Concerns Section Related Observation LastModified by Organization Detai ls LastModified Time None Recorded Concern Status LastModified by Organization Details LastModified Time None Recorded Advance Directives Directive N: Payers Insurance Date Sequence Insurance Name Policy Number Policy Carlton Covered Member ID Carlton Member ID Guarantor Name 03/16/2025 1 [place] [id number] 4 Chloeraissa Acosta [id number] Chloe Acosta Notes Date Note Type Note Provider Name and Address Organization Details Recorded Time 12/12/2022 text/html 37 yr old female presents to follow up on anxiety. pt states the wellbutrin makes her feel funny, with soa, mood swings and increase in anxiety.She also wants to change control methods. is taking depo and over a little on injection and she wants to start back on the control pill. Shabanaharrisonraissa ElizabethSOCORRO jaramillo [address], [place], [address], [facility] - [facility] 12/12/2022 15:24:25 01/26/2023 text/html 37 yr old female presents to discuss weight loss options, phentermine gives her anxiety and did not work well. pt states she has tried contrave in the past and had no results. Liam SOCORRO jaramillo [address], [place], [address], [facility] - [facility] 01/26/2023 12:09:17 07/27/2023 text/html flu shot Yasmin Stears [facility] [place] - [facility] 07/27/2023 15:44:23 09/30/2024 text/html 39 yr old female presents for sore throat and increase in anxiety. pt states she has been very flores and gets agitated easy. pt states she is eating more than usual because she just dont want to do anything. no si or hi Shabanaharrisonraissa ElizabethSOCORRO jaramillo [address], [place], [address], [facility] - [facility] 09/30/2024 10:39:33 03/17/2025 text/html 39 year old elissa coffey who presents to the office today for a follow up onweight- would like to loose 25-30 more lbshas concerns of having possible lipidemia would like referralstates has been exercising 2 hours a day and arms and legs continue to stay big no matter what she does.feeling fatigued Shabanajordon SOCORRO jaramillo [address], [place], [address], [facility] - [facility] 03/17/2025 10:13:31 OBGyn Episode No OBEpisode recorded.
--- NOTE | 2025-03-26 14:44 | ECG_ITS ---
APPROVED REPORT Exam: Resting ECG HR:69 bpm ECG Measurements Heart Rate 69 AXES SD 121 P 31 QRSd 87 QRS 39 QT 373 T 39 QTc 393 Conclusion SINUS RHYTHM NORMAL ECG UNCONFIRMED REPORT Electronically signed by : MARIA DEL ROSARIO ECKERT, 03/27/2025 01:09:27
[2025-03-26 14:49] VITALS: BP 133/79; PULSE 67; RESP 15; O2SAT 100
--- NOTE | 2025-03-26 14:55 | PC.NURSE ---
resp called for holter monitor.
[2025-03-26 15:00] VITALS: BP 133/76; PULSE 71; RESP 9; O2SAT 100
--- NOTE | 2025-03-26 15:16 | PC.NURSE ---
Called [facility] to get the patients full report from yesterday, they jsut informed me that they are on there way.
--- NOTE | 2025-03-26 15:18 | ED_ITS ---
<Statement entered by Rachelle Johnson MD - 04/02/25 07:55> I was consulted by the CHRIS, and we discussed the complexity of the problems being addressed. I approved the treatment and management plan for this patient's care in the emergency department, thus performing a substantive portion of the medical decision making. Rachelle Johnson MD, BARBIE, FACEP Discharge Plan Disposition Patient Disposition: Home, Self-Care Condition: Fair Prescriptions Prescriptions: New lorazepam [Ativan] 1 mg tablet 1 mg PO Q8H PRN (Reason: anxiety) Qty: 9 0RF lorazepam [Ativan] 0.5 mg tablet 0.5 mg PO Q8H PRN (Reason: anxiety) 3 Days Qty: 9 0RF Referrals Follow up/Referrals: Garrison Salamanca APRN [Primary Care Provider, Medical] - See instructions Clinical Impressions Clinical Impression: Tachycardia Stand Alone Forms Stand Alone Forms: Work/School Release Instructions Patient Instructions: Ambulatory Cardiac Monitoring, DI for Ambulatory Cardiac Monitoring, DI for Tachycardia Print Language Print Language: Maltese Discharge ED Provider: Melissa Van General Adult HPI <Wen Madrigal (ED), [employer] - Last Filed: 03/26/25 16:37> General Chief complaint: Arrhythmia/Palpitations Stated complaint: hearts racing, dizzy, red splotches on skin Time Seen by Provider: 03/26/25 14:38 Mode of Arrival: Ambulatory Source of Information: Patient Description of Symptoms (Recalled from ER Triage Doc. by RN): pt presents to the ED with palpitations and dizziness. pt states she was getting a pedicure yesterday when her heart started racing. pt reports she checked her heart rate on her watch and her heart rate got up to 170. pt reports she went to [facility] ED yesterday after experiencing the fast heart rate. Today while she was talking to her coworker she started feeling the same symptoms and could feel her heart start to race. pt states she has had a feeling in her right leg where she feels like her ciculation is being cut off. pt is unsure if the palpitations are occuring after the feeling in her leg starts. no chest pain or shortness of breath noted. History of Present Illness HPI narrative: 39-year-old female presents to the ED today with complaint of dizziness, palpitations and elevated heart rate today. Yesterday she felt the same way and was having a pedicure at the time. She says she looked down into her watch her heart rate was 130 and it went up to 170. Her mom called EMS because her arms, hands and face were tingling. She says she had perioral tingling as well. She said it did happen while she was in the ER at [facility]. She said her right leg has been bothering her feeling as if her leg is losing circulation or pulsating. Her foot has been tingling as well. She has had no chest pain or shortness of breath. Patient did have a EKG, labs, CTA of her chest and an ultrasound of her right leg yesterday at [facility]. She says all her tests were negative. She says they told her that they were going to do a heart monitor but they did not give that to her. She was placed on metoprolol. She does have an appointment with cardiology next Monday with Geovanna Collazo. Patient says she is just concerned that her heart rate keeps racing and she keeps having the tingling in bilateral arms. She continues to worry about her right leg as well. A DVT has been ruled out. Related Data Previous Rx's ?Medication ?Instructions ?Recorded lorazepam 0.5 mg tablet (Ativan) 0.5 mg PO Q8H PRN anx iety 3 days 03/26/25 #9 tabs lorazepam 1 mg tablet (Ativan) 1 mg PO Q8H PRN anxiety #9 tabs 03/26/25 Allergies Allergy/AdvReac Type Severity Reaction Status Date / Time Sulfa (Sulfonamide Allergy Mild not sure Verified 03/04/25 14:50 Antibiotics) of reaction, mom told her she was allergic PFSH <Wen Madrigal (ED), [employer] - Last Filed: 03/26/25 16:37> PFSH Disclaimer: The information contained in this section may have been updated after the patient was seen, as this information can be updated by other users. Medical History Sinus mucosal thickening mild Sinus pressure No active medical problems Surgical History H/O bilateral salpingectomy Family History Other No significant family history Social History Smoking Status: Never smoker alcohol intake: former substance use type: denies use current occupational status: employed Travel in the last 8 weeks?: None caffeine: No Have you lived/traveled outside US in past 30 days?: No Contact w/someone who lives/traveled outside US past 30 days?: No Exposure to someone with infectious disease in past 14 days?: No Do you have a fever (greater than 100.4 F or 38 C)?: No Have you tested positive for COVID-19?: No Exposed to someone with COVID-19 in past 14 days?: No Do you have a sore throat?: No Do you have a cough?: No Do you have any weakness?: No Do you have any diarrhea?: No Are you experiencing any unusual bleeding?: No Do you have any muscle aches/pain?: No Do you have any abdominal pain?: No Are you experiencing loss of taste or smell?: No Other Medical History Have you received the Flu Vaccine for this season: No Have you received the Pneumonia Vaccine: No <Wen Madrigal (ED), [employer] - Last Filed: 03/26/25 16:37> ROS Obtained: Yes Systems reviewed as appropriate & no additional complaints except as documented Constitutional Constitutional: Reports as per HPI Physical Exam <Wen Madrigal (ED), [employer] - Last Filed: 03/26/25 16:37> General General appearance: alert and anxious Head Head exam: atraumatic and normocephalic Eye Eye exam: Present PERRL and EOMI ENT ENT exam: Present normal oropharynx and mucous membranes moist Neck Neck exam: Present full ROM and trachea midline Chest Chest inspection: Present normal inspection Respiratory Respiratory exam: Present normal lung sounds bilaterally Cardiovascular Cardiovascular exam: Present regular rate, normal rhythm, normal heart sounds, +S1 and +S2 Abdominal Exam Abdominal exam: Present soft and normal bowel sounds Extremities Exam Extremities exam: Present normal inspection, full ROM and normal capillary refill Back Exam Back exam: Present normal inspection Neurological Exam Neurological exam: Present alert, oriented X3 and normal gait Psychiatric Psychiatric exam: Present anxious Skin Skin exam: Present warm, dry and intact Medical Decision Making <Wen Madrigal (ED), [employer]IC - Last Filed: 03/26/25 16:37> Medical Records Screening: Per USPSTF and CDC recommendations, given the prevalence of disease in our region, it is our hospital?s policy to screen for HIV and viral Hepatitis for all patients aged 18 and over and those with ongoing risk factors. Andrea Inquiry Pt receiving controlled substance: No Andrea was queried for this patient: No Vital Signs: 03/26/25 14:40 03/26/25 14:49 03/26/25 15:00 Temperature 98.6 F Temperature Source Oral Pulse Rate 67 71 Pulse Rate [Right] 85 Respiratory Rate 17 15 9 L Blood Pressure 133/79 133/76 Blood Pressure [Right Arm] 137/69 Blood Pressure Mean [Right Arm] 91 Blood Pressure Source Blood Pressure Source [Right Arm] Automatic Cuff Blood Pressure Position Blood Pressure Position [Right Arm] Supine 02 Sat by Pulse Oximetry 100 100 100 Oxygen Delivery Method Room Air 03/26/25 15:30 03/26/25 16:00 03/26/25 16:50 Temperature 98.4 F Temperature Source Pulse Rate 68 73 71 Pulse Rate [Right] Respiratory Rate 9 L 12 17 Blood Pressure 121/59 L 136/73 136/73 Blood Pressure [Right Arm] Blood Pressure Mean [Right Arm] Blood Pressure Source Automatic Cuff Blood Pressure Source [Right Arm] Blood Pressure Position Supine Blood Pressure Position [Right Arm] 02 Sat by Pulse Oximetry 100 99 Oxygen Delivery Method Room Air Lab Data Lab Results 03/26/25 14:50: WBC 7.4, RBC 4.87, Hgb 13.8, Hct 42.1, MCV 86.4, MCH 28.3, MCHC 32.8, RDW 13.4, Plt Count 313, MPV 9.6, Neut % (Auto) 61.7, Lymph % (Auto) 29.3, [place] % (Auto) 7.4, Eos % (Auto) 1.1, Baso % (Auto) 0.4, Neut # (Auto) 4.6, Lymph # (Auto) 2.2, [place] # (Auto) 0.6, Eos # (Auto) 0.1, Baso # (Auto) 0.0, D-Dimer 0.68 H, Sodium 137, Potassium 3.8, Chloride 104, Carbon Dioxide 27, Anion Gap 9.8, BUN 17, Creatinine 0.90, Estimated Creat Clear 109, Estimated GFR 70, Est GFR ( Amer) 85, Glucose 100, Calcium 9.5, Magnesium 1.8, Total Bilirubin 0.7, AST 34, ALT 19, Alkaline Phosphatase 56, Troponin I < 0.01, Total Protein 7.8, Albumin 4.7, Globulin 3.1, Albumin/Globulin Ratio 1.5, Lipase 100, TSH 2.94, Free T4 0.99, HCV Ab JIMMY w/Rflx PCR Qn Negative 03/26/25 14:50 03/26/25 14:50 Orders (Tests/Meds): ORDERS Category Date Time Status CBC [Complete Blood Count Auto Diff] Stat Lab 03/26/25 14:50 Completed Comprehensive Metabolic Panel Stat Lab 03/26/25 14:50 Completed D-Dimer Stat Lab 03/26/25 14:50 Completed Free T4 (Free Thyroxine) Stat Lab 03/26/25 14:50 Completed HIV Combo Stat Lab 03/26/25 14:50 Received Hepatitis C Ab Qual. W/ RFX Stat Lab 03/26/25 14:50 Completed Lipase Stat Lab 03/26/25 14:50 Completed Magnesium Stat Lab 03/26/25 14:50 Completed Thyroid Stimulating Hormone Stat Lab 03/26/25 14:50 Completed Trop I [Troponin I] Stat Lab 03/26/25 14:50 Completed ECG holter initial pfn Stat Y 03/26/25 15:16 Completed Medical Decision Narrative: patient is a 39-year-old female presenting to the emergency department for evaluation of palpitations and dizziness along with elevated heart rate. Patient saw [facility] yesterday. Patient is hemodynamically stable and nontoxic-appearing upon arrival, afebrile. Differential diagnosis includes arrhythmia, anxiety among other. Workup will be conducted with hematologic labs. Imaging was considered however, patient had CT chest and ultrasound of right leg to rule out DVT yesterday at [place]. We are getting records from [facility] currently. We are awaiting those records to arrive. Initial workup reviewed by me [hematologic labs are remarkable for nothing acute. D-dimer was elevated today but patient had a DVT scan as well as a CTA that were both negative. Symptoms have not changed and patient presented today less than 24 hours ago she was at [facility]. We chose to defer imaging today as she had imaging yesterday. She had a complete and thorough workup at [facility] and we have copies of this. Patient did have 1 episode of where she felt dizzy and palpitations. We got an EKG and her heart rate was 64 it did go up to 90 on the monitor because I watched the entire time. It was sinus rhythm. I did read the report from [facility] and it appears that she went into sinus tach in the 140s once while they are. They gave her metoprolol to take at home. Dr. Johnson and I had a lengthy discussion about the workup that [facility] had. We discussed that we could repeat everything depending on pain how patient felt. She and Dr. Johnson and I had a shared discussion about this and she decided that she did not need and complete workup again but she just wanted to know how to stop this from happening. Dr. Johnson discussed with her that until we know what it is we do not know how to stop it. We are going to have her do a Holter monitor for 48 hours then follow-up with Dr. Campbell in 24 to 48 hours. Patient is good with this plan. Upon repeat evaluation [patient's pain is improved, appears better perfused, appears the same, appears worse, etc.]. Due to this [additional interventions, patient is appropriate for discharge, patient requires admission, etc.]. <Melissa Van, - Last Filed: 03/26/25 17:52> Vital Signs: 03/26/25 14:40 03/26/25 14:49 03/26/25 15:00 Temperature 98.6 F Temperature Source Oral Pulse Rate 67 71 Pulse Rate [Right] 85 Respiratory Rate 17 15 9 L Blood Pressure 133/79 133/76 Blood Pressure [Right Arm] 137/69 Blood Pressure Mean [Right Arm] 91 Blood Pressure Source Blood Pressure Source [Right Arm] Automatic Cuff Blood Pressure Position Blood Pressure Position [Right Arm] Supine 02 Sat by Pulse Oximetry 100 100 100 Oxygen Delivery Method Room Air 03/26/25 15:30 03/26/25 16:00 03/26/25 16:50 Temperature 98.4 F Temperature Source Pulse Rate 68 73 71 Pulse Rate [Right] Respiratory Rate 9 L 12 17 Blood Pressure 121/59 L 136/73 136/73 Blood Pressure [Right Arm] Blood Pressure Mean [Right Arm] Blood Pressure Source Automatic Cuff Blood Pressure Source [Right Arm] Blood Pressure Position Supine Blood Pressure Position [Right Arm] 02 Sat by Pulse Oximetry 100 99 Oxygen Delivery Method Room Air Lab Data Lab Results 03/26/25 14:50: WBC 7.4, RBC 4.87, Hgb 13.8, Hct 42.1, MCV 86.4, MCH 28.3, MCHC 32.8, RDW 13.4, Plt Count 313, MPV 9.6, Neut % (Auto) 61.7, Lymph % (Auto) 29.3, [place] % (Auto) 7.4, Eos % (Auto) 1.1, Baso % (Auto) 0.4, Neut # (Auto) 4.6, Lymph # (Auto) 2.2, [place] # (Auto) 0.6, Eos # (Auto) 0.1, Baso # (Auto) 0.0, D-Dimer 0.68 H, Sodium 137, Potassium 3.8, Chloride 104, Carbon Dioxide 27, Anion Gap 9.8, BUN 17, Creatinine 0.90, Estimated Creat Clear 109, Estimated GFR 70, Est GFR ( Amer) 85, Glucose 100, Calcium 9.5, Magnesium 1.8, Total Bilirubin 0.7, AST 34, ALT 19, Alkaline Phosphatase 56, Troponin I < 0.01, Total Protein 7.8, Albumin 4.7, Globulin 3.1, Albumin/Globulin Ratio 1.5, Lipase 100, TSH 2.94, Free T4 0.99, HCV Ab JIMMY w/Rflx PCR Qn Negative Orders (Tests/Meds): ORDERS Category Date Time Status CBC [Complete Blood Count Auto Diff] Stat Lab 03/26/25 14:50 Completed Comprehensive Metabolic Panel Stat Lab 03/26/25 14:50 Completed D-Dimer Stat Lab 03/26/25 14:50 Completed Free T4 (Free Thyroxine) Stat Lab 03/26/25 14:50 Completed HIV Combo Stat Lab 03/26/25 14:50 Received Hepatitis C Ab Qual. W/ RFX Stat Lab 03/26/25 14:50 Completed Lipase Stat Lab 03/26/25 14:50 Completed Magnesium Stat Lab 03/26/25 14:50 Completed Thyroid Stimulating Hormone Stat Lab 03/26/25 14:50 Completed Trop I [Troponin I] Stat Lab 03/26/25 14:50 Completed ECG holter initial pfn Stat Y 03/26/25 15:16 Completed Medical Decision Narrative: patient is a 39-year-old female presenting to the emergency department for evaluation of palpitations and dizziness along with elevated heart rate. Patient saw [facility] yesterday. Patient is hemodynamically stable and nontoxic-appearing upon arrival, afebrile. Differential diagnosis includes arrhythmia, anxiety among other. Workup will be conducted with hematologic labs. Imaging was considered however, patient had CT chest and ultrasound of right leg to rule out DVT yesterday at [place]. We are getting records from [facility] currently. We are awaiting those records to arrive. Initial workup reviewed by me [hematologic labs are remarkable for nothing acute. D-dimer was elevated today but patient had a DVT scan as well as a CTA that were both negative. Symptoms have not changed and patient presented today less than 24 hours ago she was at [facility]. We chose to defer imaging today as she had imaging yesterday. She had a complete and thorough workup at [facility] and we have copies of this. Patient did have 1 episode of where she felt dizzy and palpitations. We got an EKG and her heart rate was 64 it did go up to 90 on the monitor because I watched the entire time. It was sinus rhythm. I did read the report from [facility] and it appears that she went into sinus tach in the 140s once while they are. They gave her metoprolol to take at home. Dr. Johnson and I had a lengthy discussion about the workup that [facility] had. We discussed that we could repeat everything depending on pain how patient felt. She and Dr. Johnson and I had a shared discussion about this and she decided that she did not need and complete workup again but she just wanted to know how to stop this from happening. Dr. Johnson discussed with her that until we know what it is we do not know how to stop it. We are going to have her do a Holter monitor for 48 hours then follow-up with Dr. Campbell in 24 to 48 hours. Patient is good with this plan. DO Rehan: I was present at time of signout from previous provider Dr. Johnson. I was consulted by the CHRIS, and we discussed the complexity of the problems being addressed. I approved the treatment and management plan for this patient's care in the emergency department, thus performing a substantive portion of the medical decision making. Melissa Van, DO Critical Care <Wen Madrigal (ED), [employer]PER[employer]IC - Last Filed: 03/26/25 16:37> Critical Care Time Critical Care Time: No
[2025-03-26 15:21] LABS: Basophils % 0.4 % (0.1-2.0); Eosinophils # 0.1 Kmm3 (0.0-0.4); Eosinophils % 1.1 % (0.1-12.0); Hematocrit 42.1 % (37.0-47.0); Hemoglobin 13.8 g/dL (12.2-16.2); Immature Granulocytes # 0.01 10^3uL; Immature Granulocytes % 0.1 %; Lymphocytes # 2.2 K/mm3 (0.7-4.5); Lymphocytes % 29.3 % (10-50); Mean Corpuscular HGB Conc 32.8 g/dL (31.8-35.4); Mean Corpuscular Hemoglobin 28.3 pg (27.0-31.2); Mean Corpuscular Volume 86.4 fl (81-99); Mean Platelet Volume 9.6 fl (7.4-10.4); Monocytes # 0.6 K/mm3 (0.1-1.0); Monocytes % 7.4 % (1.7-9.3); Neutrophils # 4.6 K/mm3 (1.8-7.8); Neutrophils % 61.7 % (37.0-80.0); Nucleated Red Blood Cells # 0 10^3/uL; Nucleated Red Blood Cells % 0 %; Platelet Count 313 K/mm3 (142-424); Red Blood Count 4.87 M/mm3 (4.20-5.40); Red Cell Distribution Width 13.4 % (11.5-17.5); Red Cell Distribution Width-SD 42.5 fL; White Blood Count 7.4 K/mm3 (4.8-10.8)
[2025-03-26 15:28] LABS: Alanine Aminotransferase 19 U/L (12-78); Albumin Level 4.7 g/dl (3.5-5.0); Albumin/Globulin Ratio 1.5 (1.1-1.8); Alkaline Phosphatase 56 U/L (38-126); Anion Gap 9.8 mEq/L (5-15); Aspartate Amino Transferase 34 U/L (14-36); Bilirubin,Total 0.7 mg/dl (0.2-1.3); Blood Urea Nitrogen 17 mg/dl (7-17); Calcium 9.5 mg/dl (8.4-10.2); Carbon Dioxide 27 mmol/L (22.0-30.0); Chloride 104 mmol/L (98-107); Creatinine Clearance Estimated 109 mL/min (50-200); Estimated Glomerular Filt Rate 70 ml/min (>60); GFR (African American) 85 ML/MIN (>60); Globulin 3.1 g/dL (1.3-3.2); Glucose 100 mg/dl (74-100); Lipase 100 U/L (23-300); Magnesium 1.8 mg/dl (1.6-2.3); Potassium 3.8 mmoL/L (3.5-5.1); Sodium 137 mmol/L (136-145); Total Protein,Serum 7.8 g/dl (6.3-8.2)
[2025-03-26 15:30] VITALS: BP 121/59; PULSE 68; RESP 9; O2SAT 100
[2025-03-26 15:33] LABS: D-Dimer 0.68 ug/mL (0.0-0.5)
--- NOTE | 2025-03-26 15:39 | ECG_ITS ---
APPROVED REPORT Exam: Resting ECG HR:64 bpm ECG Measurements Heart Rate [address] 112 P 36 QRSd 91 QRS 56 QT 402 T 54 QTc 412 Conclusion SINUS RHYTHM WITH SHORT CT INTERVAL No STEMI Electronically signed by : SONAM MARTI, 03/27/2025 00:05:29
--- NOTE | 2025-03-26 15:40 | PC.NURSE ---
rt at bedside with holter monitor.
[2025-03-26 15:42] LABS: Troponin I < 0.01 ng/ml (0.00-0.034)
[2025-03-26 15:47] LABS: Free T4 (Free Thyroxine) 0.99 ng/dl (0.78-2.19)
--- NOTE | 2025-03-26 15:51 | PC.NURSE ---
patient in the bed. gave her a warm blanket.
[2025-03-26 15:58] LABS: Thyroid Stimulating Hormone 2.94 uIU/mL (0.465-4.68)
[2025-03-26 16:00] VITALS: BP 136/73; PULSE 73; RESP 12; O2SAT 99
[2025-03-26 16:50] VITALS: BP 136/73; PULSE 71; RESP 17; TEMP 36.9; O2SAT 100
[2025-03-26 17:02] LABS: Hepatitis C Ab Qual. W/ RFX NEGATIVE (Negative)
[2025-03-27 04:57] LABS: HIV Combo NEGATIVE (Negative)
== END 2025-03-26 16:56 | disposition home or self-care (01) ==
PROVIDERS: Nurse Practitioner; Student in an Organized Health Care Education/Training Program; Emergency Provider Emergency Medicine; PCP Nurse Practitioner Family
DX: R00.0 Tachycardia, unspecified (principal); R42 Dizziness and giddiness; Z11.59 Encounter for screening for other viral diseases; Z11.4 Encounter for screening for human immunodeficiency virus [HIV]
CPT/HCPCS: 80053; 80074; 83690; 83735; 84439; 84443; 84484; 85025; 85378; 87389; 93005; 93225; 93227; 99284

== ENCOUNTER 2025-03-27 18:03 | Emergency (ER) | payer BC, SELFPAY ==
--- OUTSIDE RECORDS SUMMARY | 2025-01-18 17:30 | XMS_ITS ---
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 [employer] Name Role Phone Linwood Umana Primary Care Provider [phone] Linwood Sanchez Unavailable [phone] Migration, Provider Unavailable Unavailable Allergies Allergen (clinical drug ingredient) Drug/Non Drug Allergy documented on EMR Reaction Allergy Type Onset Date Status SULFA (uncoded) Unknown Allergy Acti ve REASON FOR VISIT Multum To Medispan Conversion Encounter Medications Medication SIG (Take, Route, Frequency, Duration) Notes Start Date End Date Status 1 *Please review f or potential replacement for e-prescription and drug interaction check* Active Encounters Encounter Location Date Provider Diagnosis [facility] [address] [facility] [address] [place] [address] 01/18/2025 Provider Migration Plan Of Treatment No Information Progress Notes * ALEXUSHermelindaaDOB: 6 (39 yo F)Acc No.[id number]:01/18/2025 Patient: Chloe SAENZ Provider: Elizabeth fulton Migration :1985 A ge:39 Y S ex:Female Date:01/18/2025 Address:[address] [id number] Pcp:Linwood Umana Subjective: * Chief Complaints: * 1 . Multum To Medispan Conversion Encounter. * Medical History: * Medications: T aking 1 , Notes to Pharmacist: *Please review for potential replacement for e-prescription and drug interaction check* * Allergies: S ULFA. Objective: * Vitals: Assessment: Plan: * Treatment: * * Electronic signature of Quinn etienne Migration on 03/27/2025 at 06:10 PM EDT Sign off status: Pending * Provider: Elizabeth fulton Migration Date: 0 01/18/2025 Generated for Carina finney/Yulisa/Chineduitting on: 0 03/27/2025 06:10 PM EDT
--- OUTSIDE RECORDS SUMMARY | 2025-03-27 18:10 | XMS_ITS | Continuity of Care Document ---
[facility] Organization [place] [facility] Address [address] [place] [address] Care Team Providers Care Office Mover Name Role Phone LIAM SALAMANCA Primary Care Provider Assessment Encounter Date Assessment Date Assessment LastModified by Organization Details LastModified Time 03/17/2025 03/17/2025 Risks, benefits, and alternatives of the medication have been discussed with the patient. She would like to move forward with a prescription of zepbound. [email or web address] Not available 03/17/2025 10:11:37 Plan of Treatment Reminders Order Date Submit Date Provider Last Modified By Organization Details Last Modified Time Details Appointments Establish ed Patient 20 2024 04:00P M Liam Salamanca APRN Not available Not available Not available Lab lipid panel, serum 2024 025 [facility], [address], [address], [place], [address], 03/19/2025 14:08:16 TSH + free T4, serum 2024 025 [facility], [address], [place] [address], [place], [address], 03/19/2025 14:08:14 insulin, serum 2024 025 [facility], [address], [address] [address], [place], [address], 03/19/2025 14:08:19 CBC w/ auto diff 2024 025 [facility], [address], [place], [place], [address], 03/19/2025 14:08:14 CMP, serum or plasma 2024 025 [facility], [address], [place], [place], [address], 03/19/2025 14:08:15 erythrocy te sedimenta tion rate by macarena n method 2024 025 [facility], [address], [place], [place], [address], 03/19/2025 14:08:18 rf (rheumato id factor), serum 2024 025 [facility], [address], [place], [place], [address], 03/24/2025 04:03:39 cobalamin and folate panel, serum 2024 025 [facility], [address], [place], [place], [address], 03/19/2025 14:08:16 WANDRE + rf (antinucl ear antibodie s + rheumatoi d factor), quantitat mariela, serum 2024 025 [facility], [address], [place], [place], [address], 03/19/2025 14:08:17 magnesium , serum or plasma 2024 025 [facility], [address], [place], [place], [address], 03/19/2025 14:08:19 vitamin D, 25-hydrox y, total, serum 2024 025 [facility], [address], [place], [place], [address], 03/19/2025 14:08:17 [facility]hedem a [facility] [address], [place], [address], 03/18/2025 16:40:14 Procedures None recorded. Surgeries None recorded. Imaging None recorded. Medication Orders Zepbound 2.5 mg/0.5 mL subcutane ous pen injector [facility]24 025 [facility] [place], [address], [place], [address], 03/17/2025 10:12:43 Patient TargetsNo targets recorded. Patient Instructions Encounter Date Encounter Id Patient Instructions Last Modified By Organization Details Last Modified Time 03/17/2025 [id number] Treament Plan: Patient will start medication as directed. Patient will continue exercise, watch calorie intake, and follow up for weight check in 1 month. [email or web address] Not available 03/17/2025 09:32:55 Reason for Referral Lymphedema Consult for Liped john Referring Physician: Liam Salamanca, Family Medicine, Encounter Date: 03/17/2025 Results Created Date Observation Date Name Description Value Unit Range Abnormal Flag Note LastModifiedBy Organization Detail LastModifiedTime 03/27/2003/26/2025 elect rocar diogr am No observ ation record ed. [facility] [address], [place], [address], 03/27/2025 09:31:10 03/27/20 25 03/26/2025 elect rocar diogr am No observ ation record ed. [facility] [address], [place], [address], 03/27/2025 09:31:10 03/27/20 25 elect rocar diogr am No observ ation record ed. [facility] [address], [address], 03/27/2025 17:20:18 Result Notes None recorded. Problems Name Problem SNOMED Code Status Onset Date Resolution Date Notes Provider Name and Address Organization Details Recorded Time Anxiety 98732461 Active 022 Liam Salamanca APRN [address], [place], [address], [facility] - [facility] 2 11:51:10 Depressive disorder 29194711 Active 022 Liam Salamanca [employer] [address], [place], [address], [facility] - [facility] 2 11:51:25 Obesity 157720640 Active 023 Liam Salamanca, [employer] [address], [place], [address], [facility] - [facility] 3 16:36:41 Problem Notes None recorded. Procedures Surgical History Date Name Laterality Status Provider Name and Address Organization Details Recorded Time 03/27/20 25 Medication Reconcilliation active Shannan James [place] - [facility] 03/27/2025 15:46:32 Imaging Results None recorded. Procedure Notes None recorded. Medical Equipment None Reported. Allergies Allergen ID Allergen Name Allergen Category Reaction Reaction Severity Criticality Documentation Date Start Date Code Code System Note Provider Name and Address Organization Details Recorded Time 14052 Substance with sulfonami de structure and antibacte rial mechanism of action (substanc e) medicatio n vomiting Not available Not available 07/22/20162007 43259 8003 SNOMED React ion: Nause a/vom iting ; Comme nt: Sulfo namid es; Not Available [facility] 09:27:28 Medications Name Sig Start Date [...] 2.5 mg/0.5 mL subcutaneou s pen injector INJECT TWO AND A HALF (2 & 1/2) MG SUBCUTANE OUSLY EVERY WEEK active Not Available Not Available No t Available Vitals Date Recorded Body height Body mass index (BMI) Body weight Heart rate Oxygen saturation Oxygen saturation in Arterial blood by Pulse oximetry Respiratory rate Systolic blood pressure Diastolic blood pressure Provider Name and Address Organization Details Last Updated DateTime 5 162.56 cm 31.2 kg/m2 36362.0 2 g 58 /min 99 % 99 [...] Or The Highest Degree You Have Received? [id number] Information not available 07/22/2022 Have There Been [...] Do You Have A Medical Power Of Tool Engineer? 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 [id number] Information not available 07/22/2022 Do you have [...] Response Pancreatitis N Coronary Artery Disease N Gout N Other N Atrial Fibrillation N congenital heart disease N Kidney Stones N Blood Diseases N Hyperthyroidism N Blood Transfusion N Rheumatoid [...] colitis N Cerebrovascular Disease N Depression N Guillain-[place] N Sleep Apnea N Aneurysm N Bronchitis [...] quadrivalent, preservative 3 completed Yasmin Mcclain null, [place] - [facility] 07/27/2023 15:44:11 Td (adult), 2 Lf tetanus toxoid, preservative free, adsorbed 2 completed Shannan James null, [place] - [facility] 08/02/2022 14:41:49 Hep B, adolescent or pediatric 4 completed Shannan James null, [place] - [facility] 08/02/2022 14:41:49 MMR 8 completed Shannan James null, [place] - [facility] 08/02/2022 14:41:49 Hep B, adolescent or pediatric 3 completed Shannan Jacob null, [place] - [facility] 08/02/2022 14:41:49 COVID-19, mRNA, LNP-S, PF, 100 mcg/0.5mL dose or 50 mcg/0.25mL dose 1 completed Shannan Jacob null, [place] - [facility] 08/02/2022 14:41:49 COVID-19, mRNA, LNP-S, PF, 100 mcg/0.5mL dose or 50 mcg/0.25mL dose 2 completed Shannan Jacob null, [place] - [facility] 08/02/2022 14:41:49 COVID-19, mRNA, LNP-S, PF, 100 mcg/0.5mL dose or 50 mcg/0.25mL dose 1 completed Shannan James null, [place] - [facility] 08/02/2022 14:41:49 Hep B, adolescent or pediatric 3 completed Shannan James null, [place] - [facility] 08/02/2022 14:41:49 Past Encounters Encounter ID Performer Location Encounter Start Date Encounter Closed Date Diagnosis/Indication Diagnosis SNOMED-CT Code Diagnosis ICD10 Code Diagnosis Note [id number] Liam Salamanca APRN [address] [address] 03/17/2025 09:18:04 03/17/2025 10:21:17 Obesity 369400308 E66.9 continue a low fat/calori e/carb dietexerci se plan exercise 30 mins a day 3 x a week Lipedema 708866102 R60.9 Fatigue 00831350 R53.83 Health Concerns Section Related Observation LastModified by Organization Detai ls LastModified Time None Recorded Concern Status LastModified by Organization Details LastModified Time None Recorded Payers Encounter Date Sequence Insurance Name Policy Number Policy Carlton Covered Member ID Carlton Member ID Guarantor Name 03/17/2025 1 [place] [id number] Chloe Acosta [id number] Chloe Acosta Notes Date Note Type [...] big no matter what she does.feeling fatigued Liam Salamanca, [employer] [address], [place], [address], [place] - [facility] 03/17/2025 10:13:31 OBGyn Episode No OBEpisode recorded.
--- OUTSIDE RECORDS SUMMARY | 2025-03-27 18:10 | XMS_ITS | Patient Health Record ---
Author Organization [facility] Address [address] [place] [address] Care Team Providers Care Litigator Name Role Phone Linwood Umana Primary Care Provider Linwood Sanchez Unavailable [phone] Migration, Provider Unavailable Unavailable Allergies Allergen (clinical drug ingredient) Drug/Non Drug Allergy documented on EMR Reaction Allergy Type Onset Date Status SULFA (uncoded) Unknown Allergy Acti ve Reason For Referral No Information Medications Medication SIG (Take, Route, Frequency, Duration) Notes Start Date End Date Status 1 *Please review f or potential replacement for e-prescription and drug interaction check* Active Social History Tobacco Use: Social History Observation Description Date Details (start date - stop date) Never Smoker NA - NA Smoking: Question Answer Notes Are you a: nonsmoker Encounters Encounter Location Date Provider Diagnosis [facility] [address] [facility] [address] [place] [address] 01/18/2025 Provider Migration Plan Of Treatment No Information Insurance Providers Payer Name Payer Address Payer Phone Subscriber Number Group Number Insured Name Patient Relationship to Insured Coverage Start Date Coverage End Date [employer] [address] [place] [address] [id number] Chloe Acosta Self - patient is the insured Medical (General) History Hospitalization History Reason Date(Month/Year) [facility]-child
--- OUTSIDE RECORDS SUMMARY | 2025-03-27 18:11 | XMS_ITS ---
Author Organization Unknown Medications Medication Instructions Effective Dates (start - stop) Status {7 (ethinyl estradiol 0.035 MG / norgestimate 0.18 MG Oral Tablet) / 7 (ethinyl estradiol 0.035 MG / norgestimate 0.215 MG Oral Tablet) / 7 (ethinyl estradiol 0.035 MG / norgestimate 0.25 MG Oral Tablet) / 7 (inert ingredients 1 MG Oral Tablet) } Pack [id number]:00:00.000+00 :00 - Completed bupropion hydrochloride 75 M G Oral Tablet [id number]:00:00.000+00 :00 - Completed cephalexin 500 MG Oral Capsule [id number]:00:00.000+00 :00 - Completed bupropion hydrochloride 75 M G Oral Tablet [id number]:00:00.000+00 :00 - Completed 0.5 ML semaglutide 0.5 MG/ML Auto-Injector [[employer]] [id number]:00:00.000+00 :00 - Completed 1 ML medroxyprogesterone silvino powell 150 MG/ML Injection [id number]:00:00.000+00 :00 - Completed bupropion hydrochloride 75 M G Oral Tablet [id number]:00:00.000+00 :00 - Completed bupropion hydrochloride 75 M G Oral Tablet [id number]:00:00.000+00 :00 - Completed bupropion hydrochloride 75 M G Oral Tablet [id number]:00:00.000+00 :00 - Completed 0.5 ML semaglutide 1 MG/ML Auto-Injector [[employer]] [id number]:00:00.000+00 :00 - Completed 0.5 ML semaglutide 2 MG/ML Auto-Injector [[employer]] [id number]:00:00.000+00 :00 - Completed 0.5 ML semaglutide 2 MG/ML Auto-Injector [[employer]] [id number]:00:00.000+00 :00 - Completed escitalopram 5 MG Oral Tablet 08-12-27T:00:00.000+00 :00 - Completed acetaminophen 325 MG / oxyco done hydrochloride 5 MG Oral Tablet [id number]:00:00.000 +00 :00 - Completed Patient Care team information Name Category Status Period Participants - - Proposed period not known -
--- OUTSIDE RECORDS SUMMARY | 2025-03-27 18:11 | XMS_ITS | Data Portability ---
Author Organization Formerly [facility] Address [address] [place] [address] Care Team Providers Care Portfolio Analyst Name Role Phone LIAM SALAMANCA Primary Care Provider [phone] Assessment Encounter Date Assessment Date Assessment LastModified [...] [facility], [address], [place], [place], [address], 03/19/2025 14:08:16 TSH + free T4, serum 2024 025 [facility], [address], [place], [place], [address], 03/19/2025 14:08:14 insulin, serum 2024 025 [facility], [address], [place], [place], [address], 03/19/2025 14:08:19 CBC w/ auto diff 2024 025 [facility], [address], [place], [place], [address], 03/19/2025 14:08:14 CMP, serum or plasma 2024 025 [facility], [address], [place], [place], [address], 03/19/2025 14:08:15 erythrocy te sedimenta tion rate by macarena n method 2024 025 [facility], [address], [place], [place], [address], 03/19/2025 14:08:18 rf (rheumato id factor), serum 2024 025 [facility], [address], [place], [place], [address], 03/24/2025 04:03:39 cobalamin and folate panel, serum 2024 025 [facility], [address], [place], [place], [address], 03/19/2025 14:08:16 WANDER + rf (antinucl ear antibodie s + rheumatoi d factor), quantitat mariela, serum 2024 025 [facility], [address], [place], [place], [address], 03/19/2025 14:08:17 magnesium , serum or plasma 2024 025 [facility], [address], [place], [place], [address], 03/19/2025 14:08:19 vitamin D, 25-hydrox y, total, serum 2024 025 [facility], [address], [place], [place], [address], 03/19/2025 14:08:17 rapid strep group A, throat 2023 024 [facility], [address] [place] [address], [phone], 09/30/2024 10:39:02 rapid flu (A+B) 2023 024 [facility], [address] [place] [address], [address], 09/30/2024 10:39:02 rapid SARS CoV + SARS CoV 2 Ag, QL IA, respirato ry specimen 2023 024 [facility], [address] [place] [address], [phone], 09/30/2024 10:39:02 Referral lymphedem a consult 2024 025 [facility], [address] [place], [address], 03/18/2025 16:40:14 Procedures None recorded. Surgeries None recorded. Imaging None recorded. Medication Orders Zepbound 2.5 mg/0.5 mL subcutane ous pen injector 2024 025 [facility], [address] [place] [address], [place], [address], 03/17/2025 10:12:43 bupropion HCl 75 mg tablet [address], [address], 03/17/2025 09:47:02 Wegovy 0.25 mg/0.5 mL subcutane ous pen injector [address], [address], 09/30/2024 08:32:43 Patient TargetsNo targets recorded. Patient Instructions Encounter Date Encounter Id Patient Instructions Last Modified By Organization Details Last Modified Time 01/26/2023 [id number] learning about healthy weight efryman Not available 01/26/2023 12:08:38 body mass index: care instructions efryman Not available 01/26/2023 12:08:38 09/30/2024 [id number] sore throat in children: care instructions efryman Not available 09/30/2024 10:39:02 learning about healthy weight efryman Not available 09/30/2024 10:39:02 body mass index: care instructions efryman Not available 09/30/2024 10:39:02 learning about healthy weight efryman Not available 09/30/2024 10:39:02 body mass index: care instructions efryman Not available 09/30/2024 10:39:02 03/17/2025 [id number] Treament Plan: Patient will start medication as directed. Patient will continue exercise, watch calorie intake, and follow up for weight check in 1 month. bstears Not available 03/17/2025 09:32:55 Reason for Referral Lymphedema Consult for Liped john Referring Physician: Liam Salamanca, Family Medicine, Encounter Date: 03/17/2025 Results Created Date Observation Date Name Description Value Unit Range Abnormal Flag Note LastModifiedBy Organization Detail LastModifiedTime 09/30/2009/30/2024 rapid SARS CoV + SARS CoV 2 Ag, QL IA, respi rator y speci men SARS CoV antigen Negati ve Not Available [address], [address], 09/30/2024 08:56:40 09/30/2009/30/2024 rapid flu (A+B) Flu negati ve Not Available [address], [address], 09/30/2024 08:56:27 09/30/20 24 09/30/2024 rapid flu (A+B) Type Both A & B Not Available [address], [address], 09/30/2024 08:56:27 09/30/20 24 09/30/2024 rapid strep group A, throa t Strep negati ve Not Available [address], [address], 09/30/2024 08:24:29 09/30/20 24 09/30/2024 rapid strep group A, throa t Culture No Not Available [address], [address], 09/30/2024 08:24:29 03/17/20 25 03/18/2025 TSH+F REE T4 TSH 2.110 uIU/m L 0.450- 4.500 normal Not Available [facility] ([facility]) [address] [place], [address], 03/19/2025 14:08:14 03/17/20 25 03/18/2025 TSH+F REE T4 T4,free(dire ct) 1.17 NG/dL 0.82-1 .77 normal Not Available [facility] ([facility]) [address] [place], [address], 03/19/2025 14:08:14 03/17/20 25 03/18/2025 CBC WITH DIFFE RENTI AL/PL ATELE T WBC 4.4 x10e3 /uL 3.4-10 .8 normal Not Available [facility] ([facility]) [address] [place], [address], 03/19/2025 14:08:14 03/17/20 25 03/18/2025 CBC WITH DIFFE RENTI AL/PL ATELE T RBC 4.94 x10e6 /uL 3.77-5 .28 normal Not Available [facility] ([facility]) [address] [place], [address], 03/19/2025 14:08:14 03/17/20 25 03/18/2025 CBC WITH DIFFE RENTI AL/PL ATELE T hemoglobin 13.9 g/dL 11.1-1 5.9 normal Not Available [facility] ([facility]) [address] [place], [address], 03/19/2025 14:08:14 03/17/20 25 03/18/2025 CBC WITH DIFFE RENTI AL/PL ATELE T hematocrit 45.6 % 34.0-4 6.6 normal Not Available [facility] ([facility]) [address] [place], [address], 03/19/2025 14:08:14 03/17/20 25 03/18/2025 CBC WITH DIFFE RENTI AL/PL ATELE T MCV 92 fL 79-97 normal Not Available [facility] ([facility]) [address] [place], [address], 03/19/2025 14:08:14 03/17/20 25 03/18/2025 CBC WITH DIFFE RENTI AL/PL ATELE T MCH 28.1 pg 26.6-3 3.0 normal Not Available [facility] ([facility]) [address] [place], [address], 03/19/2025 14:08:14 03/17/20 25 03/18/2025 CBC WITH DIFFE RENTI AL/PL ATELE T MCHC 30.5 g/dL 31.5-3 5.7 below low normal Not Available [facility] ([facility]) [address] [place], [address], 03/19/2025 14:08:14 03/17/20 25 03/18/2025 CBC WITH DIFFE RENTI AL/PL ATELE T RDW 12.9 % 11.7-1 5.4 Not Available [facility] ([facility]) [address] [facility], [place], [address], 03/19/2025 14:08:14 03/17/20 25 03/18/2025 CBC WITH DIFFE RENTI AL/PL ATELE T platelets 304 x10e3 /uL 150-45 0 normal Not Available [facility] ([facility]) [address] [facility], [place], [address], 03/19/2025 14:08:14 03/17/20 25 03/18/2025 CBC WITH DIFFE RENTI AL/PL ATELE T neutrophils 53 % not estab. normal Not Available [facility] ([facility]) [address] [facility], [place], [address], 03/19/2025 14:08:14 03/17/20 25 03/18/2025 CBC WITH DIFFE RENTI AL/PL ATELE T lymphs 34 % not estab. normal Not Available [facility] ([facility]) [address] [facility], [place], [address], 03/19/2025 14:08:14 03/17/20 25 03/18/2025 CBC WITH DIFFE RENTI AL/PL ATELE T monocytes 9 % not estab. normal Not Available [facility] ([facility]) [address] [facility], [place], [address], 03/19/2025 14:08:14 03/17/20 25 03/18/2025 CBC WITH DIFFE RENTI AL/PL ATELE T eos 3 % not estab. normal Not Available [facility] ([facility]) [address] [facility], [place], [address], 03/19/2025 14:08:14 03/17/20 25 03/18/2025 CBC WITH DIFFE RENTI AL/PL ATELE T basos 1 % not estab. normal Not Available [facility] ([facility]) [address] [facility], [place], [address], 03/19/2025 14:08:14 03/17/20 25 03/18/2025 CBC WITH DIFFE RENTI AL/PL ATELE T immature cells PRODUCT DEVELOPMENT DIRECTOR Not Available [facility] ([facility]) [address] [place], [address], 03/19/2025 14:08:14 03/17/20 25 03/18/2025 CBC WITH DIFFE RENTI AL/PL ATELE T neutrophils (absolute) 2.3 x10e3 /uL 1.4-7. 0 normal Not Available [facility] ([facility]) [address] [place], [address], 03/19/2025 14:08:14 03/17/20 25 03/18/2025 CBC WITH DIFFE RENTI AL/PL ATELE T lymphs (absolute) 1.5 x10e3 /uL 0.7-3. 1 normal Not Available [facility] ([facility]) [address] [place], [address], 03/19/2025 14:08:14 03/17/20 25 03/18/2025 CBC WITH DIFFE RENTI AL/PL ATELE T monocytes(ab solute) 0.4 x10e3 /uL 0.1-0. 9 normal Not Available [facility] ([facility]) [address] [place], [address], 03/19/2025 14:08:14 03/17/20 25 03/18/2025 CBC WITH DIFFE RENTI AL/PL ATELE T eos (absolute) 0.2 x10e3 /uL 0.0-0. 4 normal Not Available [facility] ([facility]) [address] [place], [address], 03/19/2025 14:08:14 03/17/20 25 03/18/2025 CBC WITH DIFFE RENTI AL/PL ATELE T baso (absolute) 0.0 x10e3 /uL 0.0-0. 2 normal Not Available [facility] ([facility]) [address] [place], [address], 03/19/2025 14:08:14 03/17/20 25 03/18/2025 CBC WITH DIFFE RENTI AL/PL ATELE T immature granulocytes 0 % not estab. Not Available [facility] ([facility]) [address] [facility], [place], [address], 03/19/2025 14:08:14 03/17/20 25 03/18/2025 CBC WITH DIFFE RENTI AL/PL ATELE T immature grans (abs) 0.0 x10e3 /uL 0.0-0. 1 Not Available [facility] ([facility]) [address] [facility], [place], [address], 03/19/2025 14:08:14 03/17/20 25 03/18/2025 CBC WITH DIFFE RENTI AL/PL ATELE T NRBC PRODUCT DEVELOPMENT DIRECTOR Not Available [facility] ([facility]) [address] [facility], [place], [address], 03/19/2025 14:08:14 03/17/20 25 03/18/2025 CBC WITH DIFFE RENTI AL/PL ATELE T hematology comments: PRODUCT DEVELOPMENT DIRECTOR Not Available [facility] ([facility]) [address] [facility], [place], [address], 03/19/2025 14:08:14 03/17/20 25 03/18/2025 COMP. METAB OLIC PANEL (14) glucose 90 mg/dL 70-99 normal Not Available [facility] ([facility]) [address] [facility], [place], [address], 03/19/2025 14:08:15 03/17/20 25 03/18/2025 COMP. METAB OLIC PANEL (14) BUN 15 mg/dL 6-20 normal Not Available [facility] ([facility]) [address] [facility], [place], [address], 03/19/2025 14:08:15 03/17/20 25 03/18/2025 COMP. METAB OLIC PANEL (14) creatinine 0.78 mg/dL 0.57-1 .00 normal Not Available [facility] ([facility]) [address] [facility] [place], [address], 03/19/2025 14:08:15 03/17/20 25 03/18/2025 COMP. METAB OLIC PANEL (14) eGFR 100 mL/mi n/1.7 3 >59 normal Not Available [facility] ([facility]) [address] [facility], [place], [address], 03/19/2025 14:08:15 03/17/20 25 03/18/2025 COMP. METAB OLIC PANEL (14) BUN/creatini ne ratio 19 9-23 normal Not Available [facility] ([facility]) [address] [facility], [place], [address], 03/19/2025 14:08:15 03/17/20 25 03/18/2025 COMP. METAB OLIC PANEL (14) sodium 140 mmol/ L 134-14 4 normal Not Available [facility] ([facility]) [address] [place], [address], 03/19/2025 14:08:15 03/17/20 25 03/18/2025 COMP. METAB OLIC PANEL (14) potassium 4.3 mmol/ L 3.5-5. 2 normal Not Available [facility] ([facility]) [address] [facility], [place], [address], 03/19/2025 14:08:15 03/17/20 25 03/18/2025 COMP. METAB OLIC PANEL (14) chloride 104 mmol/ L 96-106 normal Not Available [facility] ([facility]) [address] [facility], [place], [address], 03/19/2025 14:08:15 03/17/20 25 03/18/2025 COMP. METAB OLIC PANEL (14) carbon dioxide, total 23 mmol/ L 20-29 normal Not Available [facility] ([facility]) [address] [facility] [place], [address], 03/19/2025 14:08:15 03/17/20 25 03/18/2025 COMP. METAB OLIC PANEL (14) calcium 9.3 mg/dL 8.7-10 .2 normal Not Available [facility] ([facility]) [address] [place], [address], 03/19/2025 14:08:15 03/17/20 25 03/18/2025 COMP. METAB OLIC PANEL (14) protein, total 7.2 g/dL 6.0-8. 5 normal Not Available [facility] ([facility]) [address] [place], [address], 03/19/2025 14:08:15 03/17/20 25 03/18/2025 COMP. METAB OLIC PANEL (14) albumin 4.5 g/dL 3.9-4. 9 normal Not Available [facility] ([facility]) [address] [facility] [place], [address], 03/19/2025 14:08:15 03/17/20 25 03/18/2025 COMP. METAB OLIC PANEL (14) globulin, total 2.7 g/dL 1.5-4. 5 Not Available [facility] ([facility]) [address] [place] [place], [address], 03/19/2025 14:08:15 03/17/20 25 03/18/2025 COMP. METAB OLIC PANEL (14) bilirubin, total 0.3 mg/dL 0.0-1. 2 normal Not Available [facility] ([facility]) [address] [place] [place], [address], 03/19/2025 14:08:15 03/17/20 25 03/18/2025 COMP. METAB OLIC PANEL (14) alkaline phosphatase 63 IU/L 44-121 normal Not Available [facility] ([facility]) [address] [facility] [place], [address], 03/19/2025 14:08:15 03/17/20 25 03/18/2025 COMP. METAB OLIC PANEL (14) AST (SGOT) 16 IU/L 0-40 normal Not Available [facility] ([facility]) [address] [facility] [place], [address], 03/19/2025 14:08:15 03/17/20 25 03/18/2025 COMP. METAB OLIC PANEL (14) ALT (SGPT) 14 IU/L 0-32 normal Not Available [facility] ([facility]) [address] [facility] [place], [address], 03/19/2025 14:08:15 03/17/20 25 03/18/2025 LIPID PANEL cholesterol, total 139 mg/dL 100-19 9 normal Not Available [facility] ([facility]) [address] [place], [address], 03/19/2025 14:08:16 03/17/20 25 03/18/2025 LIPID PANEL triglyceride s 33 mg/dL 0-149 normal Not Available [facility] ([facility]) [address] [place], [address], 03/19/2025 14:08:16 03/17/20 25 03/18/2025 LIPID PANEL HDL cholesterol 65 mg/dL >39 normal Not Available [facility] ([facility]) [address] [place], [address], 03/19/2025 14:08:16 03/17/20 25 03/18/2025 LIPID PANEL VLDL cholesterol nataly 9 mg/dL 5-40 Not Available [facility] ([facility]) [address] [place], [address], 03/19/2025 14:08:16 03/17/20 25 03/18/2025 LIPID PANEL LDL chol calc ([facility]) 65 mg/dL 0-99 Not Available [facility] ([facility]) [address] [place], [address], 03/19/2025 14:08:16 03/17/20 25 03/18/2025 LIPID PANEL LDL calc comment: PRODUCT DEVELOPMENT DIRECTOR Not Available [facility] ([facility]) [address] [facility], [place], [address], 03/19/2025 14:08:16 03/17/20 25 03/18/2025 VITAM IN B12 AND FOLAT E vitamin B12 542 pg/mL 232-12 45 normal Not Available [facility] ([facility]) [address] [facility], [place], [address], 03/19/2025 14:08:16 03/17/20 25 03/18/2025 VITAM IN B12 AND FOLAT E folate (folic acid), serum 6.8 NG/mL >3.0 normal A serum folat e jose cruz ntrat ion of less than 3.1 ng/mL is consi dered to repre sent clini nataly defic iency . Not Available [facility] ([facility]) [address] [facility], [place], [address], 03/19/2025 14:08:16 03/17/20 25 03/18/2025 WANDER+R F QN rheumatoid factor (rf) <10.0 IU/mL <14.0 Not Available [facility] ([facility]) [address] [facility], [place], [address], 03/19/2025 14:08:17 03/17/20 25 03/19/2025 WANDER+R F QN WANDER direct Positi ve negati ve abnormal Not Available [facility] ([facility]) [address] [facility], [place], [address], 03/19/2025 14:08:17 03/17/20 25 03/18/2025 VITAM IN D, 25-HY DROXY vitamin D, 25-hydroxy 45.6 NG/mL 30.0-1 00.0 Vitam in D defic iency has been defin ed by the Insti tute of Medic ine and an Endoc rine Socie ty pract ice guide line as a level of serum 25-OH vitam in D less than 20 ng/mL (1,2) . The Endoc rine Socie ty went on to furth er defin e vitam in D insuf ficie ncy as a level betwe en 21 and 29 ng/mL (2). 1. IOM (Inst itute of Medic ine). 2010. Dieta ry refer ence intak es for calci um and D. Yanet meyer [place]: The [facility] . 2. Janee pelaez [place], Stanislav hopson [place], Flori off-F antonia i [place], et al. Evalu ation , treat ment, and preve ntion of vitam in D defic iency : an Endoc rine Socie ty clini nataly pract ice guide line. JCEM. 2010; 96(7) :1911 -30. Not Available [facility] ([facility]) [address] [place], [address], 03/19/2025 14:08:17 03/17/20 25 03/18/2025 SEDIM ENTAT ION RATE- WESTE RGREN sedimentatio n rate-westerg tal 17 mm/HR 0-32 normal Not Available [facility] ([facility]) [address] [place], [address], 03/19/2025 14:08:18 03/17/20 25 03/18/2025 MAGNE SIUM magnesium 1.9 mg/dL 1.6-2. 3 normal Not Available [facility] ([facility]) [address] [place], [address], 03/19/2025 14:08:19 03/17/20 25 03/18/2025 INSUL IN insulin 8.4 uIU/m L 2.6-24 .9 normal Not Available [facility] ([facility]) [address], [place], [address], 03/19/2025 14:08:19 03/27/20 25 03/27/2025 gluco se, finge rstic k, blood Blood Glucose: mg/dl 106 Not Available [address], [place], [address], 03/27/2025 17:16:52 03/27/20 25 03/27/2025 gluco se, finge rstic k, blood Reference Range (60-100) abnorm al Not Available [address], [place], [address], 03/27/2025 17:16:52 01/01/20 24 01/01/2024 CT, sinus es, w/o contr ast No observ ation record ed. [address], [place], [address], 01/02/2024 10:12:53 03/27/20 25 03/26/2025 elect rocar diogr am No observ ation record ed. [facility] [address], [place], [address], 03/27/2025 09:31:10 03/27/20 25 03/26/2025 elect rocar diogr am No observ ation record ed. [facility] [address], [place], [address], 03/27/2025 09:31:10 03/27/20 elect rocar diogr am No observ ation record ed. [address], [address], 03/27/2025 17:20:18 Result Notes None recorded. Problems Name Problem SNOMED Code Status Onset Date Resolution Date Notes Provider Name and Address Organization Details Recorded Time Anxiety 67583877 Active 022 Liam Salamanca, [facility] [address], [place], [address], [place] - [facility] 2 11:51:10 Depressive disorder 57797151 Active 022 Liam Salamanca, [facility] [address], [place], [address], [place] - [facility] 2 11:51:25 Obesity 294604551 Active 023 Liam Salamanca, [facility] [address], [place], [address], [place] - [facility] 3 16:36:41 Problem Notes None recorded. Procedures Surgical History Date Name Laterality Status Provider Name and Address Organization Details Recorded Time 03/27/20 Medication Reconcilliation active Shannan James [place] - [facility] 03/27/2025 15:46:32 Imaging Results None recorded. Procedure Notes None recorded. Medical Equipment None Reported. Allergies Allergen ID Allergen Name Allergen Category Reaction Reaction Severity Criticality Documentation Date Start Date Code Code System Note Provider Name and Address Organization Details Recorded Time 48169 Substance with sulfonami de structure and antibacte rial mechanism of action (substanc e) medicatio n vomiting Not available Not available 07/22/20162007 12060 8003 SNOMED React ion: Nause a/vom iting ; Comme nt: Sulfo namid es; Not Available [facility] 6 09:27:28 Medications Name Sig Start Date [...] Updated DateTime 3 162.56 cm 38.2 kg/m2 573256. 31 g 98.2 [degF] 60 /min 98 [...] Updated DateTime 5 162.56 cm 31.2 kg/m2 39643.0 2 g 58 /min 99 % 99 % 18 /min 118 mm[Hg] 72 mm[Hg] Yasmin Mcclain [place] - [facility] 5 09:29:00 Date Recorded Body height Body mass index (BMI) Body weight Heart rate Oxygen saturation Oxygen saturation in Arterial blood by Pulse oximetry Respiratory rate Systolic blood pressure Diastolic blood pressure Provider Name and Address Organization Details Last Updated DateTime 5 162.56 cm 31.9 kg/m2 71709.1 8 g 76 /min 100 % 100 % 18 /min 140 mm[Hg] 80 mm[Hg] Shannan James [place] - [facility] 5 16:11:54 Date Recorded Body height Provider Name an d Address Organization Details Last Updated DateTime 07/27/2023 162.56 cm Yasmin Mcclain [place] - [facility] 07/27 15:42:07 Date Recorded Body weight Heart rate Oxygen saturation Oxygen saturation in Arterial blood by Pulse oximetry Respiratory rate Body mass index (BMI) Body height Systolic blood pressure Diastolic blood pressure Provider Name and Address Organization Details Last Updated DateTime 4 55877.8 1 g 57 /min 97 % 97 % 18 /min 31.2 kg/m2 162.56 cm 112 mm[Hg] 68 mm[Hg] Shannan James [place] - [facility] 4 08:32:32 Social History Question Answer Notes LastModified by Organizat ion Details LastModified Time Tobacco Smoking Status Former Smoker Shannan Sousaler naa, [place] - [facility] 07/22/2022 11:33:01 Do You [...] Or The Highest Degree You Have Received? [id number] Information not available 07/22/2022 Have There Been [...] Do You Have A Medical Power Of Perinatal Director? No Information not available 07/22/2022 What Was [...] available 07/22/2022 What is your occupation? [employer] Information not available 07/22/2022 Mental Status Question Answer Note LastModified by Organizat ion Details LastModified Time Do you feel stressed (tense, restless, nervous, or anxious, or unable to sleep at night)? [id number] Information not available 07/22/2022 Do you have [...] colitis N Cerebrovascular Disease N Depression N Guillain-Shepherd N Sleep Apnea N Aneurysm N Bronchitis [...] quadrivalent, preservative 3 completed Yasmin Mcclain null, [place] - [facility] 07/27/2023 15:44:11 Td (adult), 2 [...] James null, [place] - [facility] 08/02/2022 14:41:49 COVID-19, mRNA, LNP-S, PF, 100 mcg/0.5mL dose or 50 mcg/0.25mL dose 1 completed Shannan James null, [place] - [facility] 08/02/2022 14:41:49 COVID-19, mRNA, LNP-S, PF, 100 mcg/0.5mL dose or 50 mcg/0.25mL dose 2 completed Shannan James null, [place] - [facility] 08/02/2022 14:41:49 COVID-19, mRNA, LNP-S, PF, 100 mcg/0.5mL dose or 50 mcg/0.25mL dose 1 completed Shannan [place]acome, [place] - [facility] 08/02/2022 14:41:49 Hep B, adolescent or pediatric 3 completed Shannan [place]acome[place] - [facility] 08/02/2022 14:41:49 Past Encounters Encounter ID Performer Location Encounter Start Date Encounter Closed Date Diagnosis/Indication Diagnosis SNOMED-CT Code Diagnosis ICD10 Code Diagnosis Note [id number] [facility] [address] [place] [address] 11/08/2005 00:00:00 [id number] [facility] [address] [place] [address] 12/12/2005 00:00:00 [id number] [facility] [address] [place] [phone] 12/26/2006 00:00:00 [id number] [facility] [address] [place] [address] 11/09/2007 00:00:00 [id number] [facility] [address] [place] [phone] 05/01/2008 00:00:00 [id number] [facility] [address] [place] [address] 06/16/2006 00:00:00 [id number] [facility] [place] [address] [address] 07/22/2022 11:09:56 07/22/2022 12:11:05 Contraception care management 973094398 Z30.9 Anxiety 08962449 F41.9 Depressive disorder 3548 9007 F32.A Body mass index 30+ - obesity 628208726 Z68.34 Fatigue 01275233 R53.83 [id number] Liam Salamanca [address] [address] 07/26/2022 14:10:26 07/26/2022 14:58:13 Anxiety 63964784 F41.9 Patient identified triggers for anxiety and impact of anxious thinking on functionin g. Discussed strategies to regulate symptoms and need for compliance with treatment. Depressive disorder 0810 9007 F32.A At this time patient is symptomati c; symptoms are stable. Patient denies suicidal or homicidal ideation. Plan to change medication . Plan to re-evaluat e patient at follow up; patient also referred to counseling services and community resources. Patient was advised to call or come in if symptoms worsen. Patient verbalized understand ing. [id number] [facility] Salamanca [address] [address] 08/02/2022 14:18:17 08/02/2022 14:38:01 Uses depot contraception [id number] Z30.013 Influenza vaccine needed [id number] 106 Z23 [id number] [facility] [place] [id number] 1 08/11/2022 10:38:33 08/11/2022 11:44:24 Acute maxillary sinusitis 80775090 J01.00 [id number] [facility] Elizabethcl[address] [address] 08/25/2022 13:37:09 08/25/2022 14:27:02 Body mass index 30+ - obesity 663951781 Z68.39 Pt compliant with plan of careKasper reviewedme dication compliance discussedL ast uds:Control substance agreement on file Obesity 548870998 E66.3 continue a low fat/calori e/carb dietstart a exercise plan exercise 30 mins a day 3 x a week Long-term drug therapy 759825454 Z79.659 [id number] [facility] Elizabethclint[address] [address] 09/06/2022 09:39:24 09/06/2022 10:16:02 COVID-19 [id number] U07.1 no sign of a bacterial infection. [...] improvemen t over the next 48-72 hours [id number] Liam Salamanca [address] [address] 09/29/2022 09:21:02 09/29/2022 09:54:31 Body mass index 30+ - obesity 827973656 Z68.39 Pt compliant with plan of careKasper reviewedme dication compliance discussedL ast uds:Control substance agreement on file Anxiety 91045000 F41.9 Patient identified triggers for anxiety and impact of anxious thinking on functionin g. Discussed strategies to regulate symptoms and need for compliance with treatment. [id number] Liam Salamanca [address] [address] 10/27/2022 15:38:43 10/27/2022 16:05:36 Depressive disorder 12486174 F32.A Anxiety 27096139 F41.9 Patient identified triggers for anxiety and impact of anxious thinking on functionin g. Discussed strategies to regulate symptoms and need for compliance with treatment. Obesity 110157465 E66.3 continue a low fat/calori e/carb dietstart a exercise plan exercise 30 mins a day 3 x a week Body mass index 30+ - obesity 309455386 Z68.39 Pt compliant with plan of careKasper reviewedme dication compliance discussedL ast uds:Control substance agreement on filenext month will go off med for a drug holiday while watching diet and exercising . [id number] Liam Salamanca [address] [address] 12/12/2022 14:00:25 12/12/2022 15:32:42 Anxiety 65324306 F41.9 Patient identified triggers for anxiety and impact of anxious thinking on functionin g. Discussed strategies to regulate symptoms and need for compliance with treatment. medication discussed with pt- start low dose recheck in 2 weeks and increase dose if needed Family genaro nning education 880364803 Z30.02 Depressive disorder 9682 7087 F32.A [id number] Liam Salamanca [address] [address] 01/26/2023 11:44:07 01/26/2023 12:05:07 Obesity 729973512 E66.3 continue a low fat/calori e/carb dietstart a exercise plan exercise 30 mins a day 3 x a week Body mass index 30+ - obesity 690875406 Z68.38 medication discussed with pt [id number] Liam Salamanca [address] [address] 07/27/2023 15:25:31 07/27/2023 16:55:55 Influenza vaccine needed 6182940277 106 Z23 [id number] Liam Salamanca [address] [address] 09/30/2024 08:03:09 09/30/2024 09:16:01 Pharyngitis 917476689 J02.9 tylenol or motrin as neededincr ease fluids- if worsen or no improvemen t return Anxiety 77831164 F41.9 Patient identified triggers for anxiety and impact of anxious thinking on functionin g. Discussed strategies to regulate symptoms and need for compliance with treatment. medication discussed with pt- start low dose recheck in 2 weeks and increase dose if needed Body mass index 30+ - obesity 679299862 Z68.31 31.2 Obesity 812703771 E66.9 continue a low fat/calori e/carb dietexerci se plan exercise 30 mins a day 3 x a week [id number] Liam Salamanca [address] [address] 03/17/2025 09:18:04 03/17/2025 10:21:17 Obesity 746313906 E66.9 continue a low fat/calori e/carb dietexerci se plan exercise 30 mins a day 3 x a week Lipedema 643131441 R60.9 Fatigue 91996786 R53.83 [id number] Liam ElizabethpeteyvonneSOCORRO [address] [address] 03/27/2025 15:46:00 03/27/2025 17:22:44 Health Concerns Section Related Observation LastModified by Organization Detai ls LastModified Time None Recorded Concern Status LastModified by Organization Details LastModified Time None Recorded Advance Directives Directive N: Payers Insurance Date Sequence Insurance Name Policy Number Policy Carlton Covered Member ID Carlton Member ID Guarantor Name 03/27/2025 1 [employer] [id number] Chloe Gaetano [place] [id number] Notes Date Note Type Note Provider Name and Address Organization Details Recorded Time 01/26/2023 text/html 37 yr old female presents to discuss weight loss options, phentermine gives her anxiety and did not work well. pt states she has tried contrave in the past and had no results. Shabanaharrisonraissa Cheikh, [facility] [address], [place], [address], [place] - [facility] 01/26/2023 12:09:17 07/27/2023 text/html flu shot Yasmin Stears [facility], [place] - [facility] 07/27/2023 15:44:23 09/30/2024 text/html 39 yr old female presents for sore throat and increase in anxiety. pt states she has been very flores and gets agitated easy. pt states she is eating more than usual because she just dont want to do anything. no si or hi Shabanaharrisonraissa Elizabethclint, [facility] [address], [place], [address], [place] - [facility] 09/30/2024 10:39:33 03/17/2025 text/html 39 year old elissa coffey who presents to the office today for a follow up onweight- would like to loose 25-30 more lbshas concerns of having possible lipidemia would like referralstates has been exercising 2 hours a day and arms and legs continue to stay big no matter what she does.feeling fatigued Liam Salamanca, [facility] [address], [place], [address], [place] - [facility] 03/17/2025 10:13:31 OBGyn Episode No OBEpisode recorded.
--- NOTE | 2025-03-27 18:12 | ECG_ITS ---
APPROVED REPORT Exam: Resting ECG HR:79 bpm ECG Measurements Heart Rate 79 AXES AL 122 P 46 QRSd 90 QRS 71 QT 353 T 67 QTc 388 Conclusion SINUS RHYTHM NORMAL ECG No sTEMI Electronically signed by : SONAM MARTI, 03/27/2025 23:12:35
--- NOTE | 2025-03-27 18:17 | PC.NURSE ---
pt was registered and per registration states she wanted to go to [facility] and see cardiology. pt brought back immediately to room 10 for evaluation,while in the room pt expressed concern over elevated heart rate. EKG performed. pt very persistant to have cardiology @ bedside. i educated her that ER doctor would have to evaluate her due to being an ER pt but could share information with cardiology information clerk brokerage. prior to triage being completed pt got up and walked out of ER stating she was going to go to [facility] on her own. accompanied by parents. I asked if pt would be willing to stay long enough to be evaluated by ER provider. She said no and continued to leave. did not sign AMA form because she was walking out the ER doors. Dr. Van notified of this event
[2025-03-27 18:22] VITALS: RESP 18; O2SAT 0; BMI 30.7
--- NOTE | 2025-03-27 19:08 | EXP.EVENT.NO ---
Patient was triaged by nursing, and according to nursing was requesting ambulance transport to [place] for cardiology evaluation. They advised to her that she would need to be evaluated by physician prior to determining if she was appropriate for transfer. I was unfortunately in another patient room and was not able to assess the patient immediately upon arrival. Nursing obtained an EKG, and immediately after, the patient eloped stating that she was going to go to [place]. I independently interpreted EKG at 1815 and noted normal sinus rhythm with a ventricular rate of [address] changes concerning for ischemia. I was not able to see the patient, as she eloped prior to me being able to see her.
== END 2025-03-27 18:22 | disposition left against medical advice (07) ==
LOC: ER 18:08
PROVIDERS: Emergency Provider Emergency Medicine; PCP Nurse Practitioner Family
DX: R00.2 Palpitations (principal)
CPT/HCPCS: 93005; 99281

== ENCOUNTER 2025-04-01 15:15 | Outpatient (CLI) | payer BC, SELFPAY ==
--- OUTSIDE RECORDS SUMMARY | 2025-03-27 19:20 | XMS_ITS | Encounter Summary ---
Author Organization [employer] In iatives Address [address] [place] [address] Care Team Providers Care Dean Of Women Name Role Phone Garrison Salamanca Primary Care Provider [phone] Reason for Visit * Reason Comments Palpitations Encounter Details Date Type Department Care Team (Late st Contact Info) Description 03/27/2025 7:20 PM EDT - 03/27/2025 9:32 PM EDT Emergency [facility] Emergency Department [address] [place] [address] [phone] Cuco Nova, DO [address] [place] [address] Palpitations (Primary Dx) Discharge Disposition: Home or [...] be sent through Care Everywhere. * Palpitations [id number] (Samoan) documented in this encounter Medications at Time [...] Light Yellow Clarity, UA Clear Clear Specific [place], UA 1.033 (H) 1.005 - 1.030 pH, [...] 80 BPM ATRIAL RATE (MCT) 85 BPM [place] Interval 106 ms QRS-INTERVAL (MSEC) 76 ms QT Interval 370 ms QTC Interval 426 ms P [place] 29 degrees R AXIS (MCT) 68 degrees T Wave [place] 61 degrees [place] Diagnosis Age and gender specific ECG analysis Sinus rhythm with sinus arrhythmia with short [place] Otherwise normal ECG No previous ECGs available XR chest 1 view portable / bedside Final Result No acute cardiopulmonary process. Images reviewed, interpreted, and dictated by Dr. Rakesh Samuels. Transcribed by Carolina Mcnair(Vitaly). ED Course as of 03/28/25 0242 [facility] Mar 27, [id number] EKG interpreted by [...] extensive review of records recent visits to [facility], other Initial vitals: Mild hypertension 146/79 [...] review CT chest for PE performed at [facility] 2 days ago. It was negative [...] follow-up Garrison Salamanca Relationship: PCP - [place] [address] [place] [address] [facility] [phone] Next Steps: Follow up Electronically Signed By [...] None Seen /HPF 03/27/2025 8:15 PM EDT [facility] RBC, UA 3-5(A) None Seen /HPF 03/27/2025 8:15 PM EDT [facility] Bacteria, UA 1+(A) None Seen, Trace 03/27/2025 8:15 PM EDT [facility] Mucus 1+(A) None Seen 03/27/2025 8:15 PM EDT [facility] SQUAMOUS EPITHELIAL 3-5(A) None Seen /HPF 03/27/2025 8:15 PM EDT [facility] Urine URINE SPECIMEN COLLECTION, CLEAN CATCH / Unknown 03/27/2025 8:01 PM EDT 03/27/2025 8:07 PM EDT Sylvia Dominguez APRN URINE ORDERABLES Final Result Performing Organization Address City/State/[facility] Co de Phone Number [facility] [address] [phone] * (ABNORMAL) Urinalysis, Reflex Microscopic and Culture If Indicated (03/27/2025 8:01 PM EDT) Color, UA Light Yellow 03/27/2025 8:15 PM EDT [facility] Clarity, UA Clear Clear 03/27/2025 8:15 PM EDT [facility] Specific [place], UA 1.033(H) 1.005 - 1.030 03/27/2025 8:15 PM EDT [facility] pH, UA 7.0 6.0 - 8.0 03/27/2025 8:15 PM EDT [facility] Leukocytes, UA 25 Chris/uL(A) Negative 03/27/2025 8:15 PM EDT [facility] Nitrite, UA Negative Negative 03/27/2025 8:15 PM EDT [facility] Protein, UA Trace(A) Negative 03/27/2025 8:15 PM EDT [facility] Glucose, UA Normal Normal 03/27/2025 8:15 PM EDT [facility] Ketones, UA Negative Negative 03/27/2025 8:15 PM EDT [facility] Bilirubin, UA Negative Negative 03/27/2025 8:15 PM EDT [facility] Blood, UA 1+(A) Negative 03/27/2025 8:15 PM EDT [facility] Urobilinogen, UA 2 mg/dL(A) Normal 03/27/2025 8:15 PM EDT [facility] Specimen Source Urine, Clean Catch 03/27/2025 8:15 PM EDT [facility] Urine URINE SPECIMEN COLLECTION, CLEAN CATCH / Unknown 03/27/2025 8:01 PM EDT 03/27/2025 8:07 PM EDT us Sylvia Dominguez APRN URINE ORDERABLES Final Result Performing Organization Address City/[facility]/ZIP Co de Phone Number [facility] [address] [place] [address] * Screen, urine (03/27/2025 8:01 PM EDT) Preg Test, Ur Negative Negative, Inconclusive 03/27/2025 8:07 PM EDT [facility] Urine 03/27/2025 8:01 PM EDT 03/27/2025 8:06 PM EDT Sylvia Dominguez APRN URINE ORDERABLES Final Result [facility] [address] [phone] * XR chest 1 view portable / [...] * D-dimer (03/27/2025 7:34 PM EDT) Pathologist [facility] D-Dimer, Quant 0.28 0.19 - 0.58 MG/L FEU 03/27/2025 7:48 PM EDT [facility] Comment:Important: A D-Dimer result of less than 0.50 mg/L FEU indicates a very low probability of DVT or PE. Blood Venipuncture / Unknown 03/27/2025 7:34 PM EDT 03/27/2025 7:35 PM EDT Sylvia Dominguez APRN LAB BLOOD ORDERABLES Final Res ult [facility] [address] [phone] * High Sensitivity Troponin I (03/27/2025 7:34 PM EDT) [facility] Troponin I High Sensitivity (pg/mL) <5.0 <=14 pg/mL 03/27/2025 8:25 PM EDT [facility] Blood Venipuncture / Unknown 03/27/2025 7:34 PM EDT 03/27/2025 7:35 PM EDT Narrative [facility] - 03/27/2025 8:25 PM EDT Applicable to [facility] only. Effective January 07 the lab will begin using a new chemistry analyzer. HsTroponin methodology, reference ranges and critical values have changed. us Sylvia Dominguez FUNERAL ATTENDANT LAB BLOOD ORDERABLES Final Res ult [facility] [address] [phone] * Lipase (03/27/2025 7:34 PM EDT) Lipase 21 <=60 U/L 03/27/2025 7:59 PM EDT [facility] Blood Venipuncture / Unknown 03/27/2025 7:34 PM EDT 03/27/2025 7:35 PM EDT us Sylvia Dominguez FUNERAL ATTENDANT LAB BLOOD ORDERABLES Final Res ult Performing Organization Address [facility]/ZIP Co de Phone Number [facility] [address] [phone] * (ABNORMAL) Comprehensive metabolic panel (03/27/2025 7:34 PM EDT) Sodium 140 136 - 145 meq/L 03/27/2025 7:59 PM EDT [facility] Potassium 3.9 3.4 - 5.1 meq/L 03/27/2025 7:59 PM EDT [facility] Chloride 109 98 - 112 meq/L 03/27/2025 7:59 PM EDT [facility] CO2 24 22 - 29 meq/L 03/27/2025 7:59 PM EDT [facility] Calcium 8.9 8.4 - 10.2 mg/dL 03/27/2025 7:59 PM EDT [facility] Glucose 126(H) 74 - 100 mg/dL 03/27/2025 7:59 PM [facility] BUN 15.4 7.0 - 18.7 mg/dL 03/27/2025 7:59 PM [facility] Creatinine 0.76 0.57 - 1.11 mg/dL 03/27/2025 7:59 PM [facility] BUN/Creatinine 20 8 - 20 03/27/2025 7:59 PM [facility] eGFR (mL/min/1.73m2) 103 >=60 mL/min/1. 73m2 03/27/2025 7:59 PM [facility] Albumin 3.8 3.5 - 5.0 g/dL 03/27/2025 7:59 PM [facility] Alkaline Phosphatase 53 40 - 150 U/L 03/27/2025 7:59 PM [facility] ALT 11 <=34 U/L 03/27/2025 7:59 PM [facility] Comment: ALT2 reagent used for testing does not contain P5P supplementation and therefore may miss ALT elevations in patients with B6 deficiency. This population may be as high as 10% in the [place], with risk factors including malabsorption, drug interactions, and alcoholic hepatitis. AST 21 11 - 34 U/L 03/27/2025 7:59 PM [facility] Comment: AST2 reagent used for testing does not contain P5P supplementation and therefore may miss AST elevations in patients with B6 deficiency. This population may be as high as 10% in the [place], with risk factors including malabsorption, drug interactions, and alcoholic hepatitis. Total Bilirubin 0.3 0.2 - 1.2 mg/dL 03/27/2025 7:59 PM [facility] Protein, Total 7.4 6.4 - 8.3 g/dL 03/27/2025 7:59 PM [facility] Globulin 3.6 2.5 - 4.1 g/dL 03/27/2025 7:59 PM [facility] Anion Gap 11 4 - 12 03/27/2025 7:59 PM [facility] A/G Ratio 1.1 0.7 - 1.9 03/27/2025 7:59 PM [facility] Osmolality Calc 281.9 mOsm/kg 7:59 PM EDT [facility] Blood Venipuncture / Unknown 03/27/2025 7:34 PM EDT 03/27/2025 7:35 PM EDT us Sylvia Riporalia FUNERAL ATTENDANT LAB BLOOD ORDERABLES Final Res ult [facility] [address] [phone] * (ABNORMAL) CBC with Auto Diff (03/27/2025 7:34 PM EDT) WBC 8.7 4.0 - 10.0 K/ L 03/27/2025 7:37 PM EDT [facility] RBC 4.79 3.93 - 5.22 M/ L 03/27/2025 7:37 PM EDT [facility] Hemoglobin 13.8 11.2 - 15.7 GM/DL 03/27/2025 7:37 PM EDT [facility] Hematocrit 42.2 34.1 - 44.9 % 03/27/2025 7:37 PM EDT [facility] MCV 88 79 - 95 fL 03/27/2025 7:37 PM EDT [facility] MCH 28.8 25.6 - 32.2 pg 03/27/2025 7:37 PM EDT [facility] MCHC 32.7 32.2 - 35.5 GM/DL 03/27/2025 7:37 PM EDT [facility] RDW 13.6 11.7 - 14.4 % 03/27/2025 7:37 PM EDT [facility] Platelets 332 140 - 375 K/CU MM 03/27/2025 7:37 PM EDT [facility] MPV 9.6 9.4 - 12.3 fL 03/27/2025 7:37 PM EDT [facility] % Neutros 77(H) 34 - 71 % 03/27/2025 7:37 PM EDT [facility] % Lymphs 14(L) 19 - 52 % 03/27/2025 7:37 PM EDT [facility] % Monos 7 5 - 13 % 03/27/2025 7:37 PM EDT [facility] % Eos 1 1 - 6 % 03/27/2025 7:37 PM EDT [facility] % Baso 1 0 - 1 % 03/27/2025 7:37 PM EDT [facility] NRBC Absolute <0.01 0 - 0.012 K/ul 03/27/2025 7:37 PM EDT [facility] # Neutros 6.72(H) 1.56 - 6.13 K/ L 03/27/2025 7:37 PM EDT [facility] # Lymphs 1.26 1.18 - 3.74 K/ L 03/27/2025 7:37 PM EDT [facility] # Monos 0.59 0.24 - 0.86 K/ L 03/27/2025 7:37 PM EDT [facility] # Eos 0.10 0.04 - 0.36 K/ L 03/27/2025 7:37 PM EDT [facility] # Baso 0.04 0.01 - 0.08 K/ L 03/27/2025 7:37 PM EDT [facility] Immature Granulocytes-Re lative 0.20 0.01 - 0.43 % 03/27/2025 7:37 PM EDT [facility] # IG <0.03 0.00 - 0.03 K/uL 03/27/2025 7:37 PM EDT [facility] Blood Venipuncture / Unknown 03/27/2025 7:34 PM EDT 03/27/2025 7:35 PM EDT Narrative [facility] - 03/27/2025 7:37 PM EDT When [...] APRN LAB BLOOD ORDERABLES Final Res ult [facility] [address] [phone] * ECG 12 lead (03/27/2025 7:29 PM EDT) VENTRICULAR RATE EKG/MIN 80 BPM GE MUSE ATRIAL RATE (MCT) 85 BPM GE MUSE [place] Interval 106 ms GE MUSE QRS-INTERVAL (MSEC) 76 ms GE MUSE QT Interval 370 ms GE MUSE QTC Interval 426 ms GE MUSE P [place] 29 degrees GE MUSE R AXIS (MCT) 68 degrees GE MUSE T Wave [place] 61 degrees GE MUSE [place] Diagnosis Age and gender specific ECG analysis Sinus rhythm with sinus arrhythmia with short [place] Otherwise normal ECG No previous ECGs available Confirmed by BRIAN VITALE M.D. ([id number]) on 03/28/2025 7:38:00 PM GE MUSE 03/27/2025 7:29 PM EDT 03/28/2025 7:38 PM EDT us Sylvia Dominguez APRN ECG ORDERABLES Final Result Performing Organization Address [facility] de Phone Number GE MUSE * [...] doses documented in this encounter Care Teams Dean Of Women Relationship Specialty Start Date End Date Shabana Salamancaharrisonraissa [address] [place] [address] PCP - General 03/27/25 documented as of this encounter
--- OUTSIDE RECORDS SUMMARY | 2025-04-01 15:18 | XMS_ITS | Encounter Summary ---
Author Organization [facility] In iatives Address [address] [place] [address] Care Team Providers Care Business Excellence Manager Name Role Phone clint Shabanajordon Primary Care Provider [phone] Encounter Details Date Type Department Care Team (Latest Contact Info) Description 03/27/2025 Travel Social History Tobacco Use Types Packs/Day Years Used Date Smoking Tobacco: Never Smokeless Tobacco: Never Comments Unknown Sex and Gender Information Value Date Recorded Sex Assigned at Not on file Legal Sex Female 6:07 PM CDT Gender Identity Not on file Sexual Orientation Not on file documented as of this encounter Plan of Treatment Not on file documented as of this encounter Visit Diagnoses Not on filedocumented in this encounter Care Teams Business Excellence Manager Relationship Specialty Start Date End Date [address]arrison [address] [place] [address] PCP - General 03/27/25 documented as of this encounter
--- OUTSIDE RECORDS SUMMARY | 2025-04-01 15:18 | XMS_ITS | Referral Summary ---
Author Organization [employer] Address [address] [place] [address] Care Team Providers Care Slider Assembler Name Role Phone Garrison Salamanca Primary Care Provider [phone] Encounters Date Type Department Care Team Description 03/27/2025 Travel 03/27/2025 7:20 PM EDT - 03/27/2025 9:32 PM EDT Emergency [facility] Emergency Department [address] [place] [address] Cuco Nova DO Palpitations (Primary Dx) Discharge Disposition: Home or Self Care from Last 3 Months Allergies Active Allergy Reactions Criticality Noted Date Comments Sulfa (Sulfonamide Antibiotics) 03/16 Medications LORazepam (ATIVAN) 0.5 MG tablet Take 1 tablet (0.5 mg total) by mouth every 6 (six) hours as needed for anxiety. Max Daily Amount: 2 mg Active levalbuterol (XOPENEX HFA) 45 mcg/actuation inhaler Inhale 1-2 puffs by mouth every 4 (four) hours as needed for wheezing. 1 Inhaler 03/27/2025 Active Social History Tobacco Use Types Packs/Day Years Used Date Smoking Tobacco: Never Smokeless Tobacco: Never Tobacco Cessation:Counseling Given: Not Answered Comments Unknown Sex and Gender Information Value Date Recorded Sex Assigned at Not on file Legal Sex Female 6:07 PM CDT Gender Identity Not on file Sexual Orientation Not on file Last Filed Vital Signs Vital Sign Reading [...] Mass Index 30.9 03/27/2025 7:18 PM EDT Plan of Treatment Not on file Procedures Procedure Name Priority Date/Time Associated Diagnosis Comments URINALYSIS MICROSCOPIC STAT 8:01 PM EDT URINALYSIS, REFLEX MICROSCOPIC AND CULTURE IF INDICATED STAT 03/27/2025 8:01 PM EDT SCREEN, URINE STAT 03/27/2025 8:01 PM EDT XR CHEST 1 VIEW PORTABLE / BEDSIDE STAT 03/27/2025 7:42 PM EDT D-DIMER STAT 03/27/2025 7:34 PM EDT HIGH SENSITIVITY TROPONIN I STAT 03/27/2025 7:34 PM EDT LIPASE STAT 03/27/2025 7:34 PM EDT COMPREHENSIVE METABOLIC PANEL STAT 03/27/2025 7:34 PM EDT CBC W/ AUTO DIFF STAT 03/27/2025 7:34 PM EDT FS_MODEL_IP_ECG 12-LEAD STAT 03/27/2025 7:29 PM EDT EKG-SCANNED 03/27/2025 from Last 3 Months Results * (ABNORMAL) Urinalysis, Reflex Microscopic and Culture If Indicated (03/27/2025 8:01 PM EDT) Color, UA Light Yellow 03/27/2025 8:[address] [facility] Clarity, UA Clear Clear 03/27/2025 8:[address] [facility] Specific [place], UA 1.033(H) 1.005 - 1.030 03/27/2025 8:[address] [facility] pH, UA 7.0 6.0 - 8.0 03/27/2025 8:[address] [facility] Leukocytes, UA 25 Chris/uL(A) Negative 03/27/2025 8:[address] [facility] Nitrite, UA Negative Negative 03/27/2025 8:[address] [facility] Protein, UA Trace(A) Negative 03/27/2025 8:[address] [facility] Glucose, UA Normal Normal 03/27/2025 8:[address] [facility] Ketones, UA Negative Negative 03/27/2025 8:[address] [facility] Bilirubin, UA Negative Negative 03/27/2025 8:[address] [facility] Blood, UA 1+(A) Negative 03/27/2025 8:[address] [facility] Urobilinogen, UA 2 mg/dL(A) Normal 03/27/2025 8:[address] [facility] Specimen Source Urine, Clean Catch 03/27/2025 8:[address] [facility] Urine URINE SPECIMEN COLLECTION, CLEAN CATCH / Unknown 03/27/2025 8:01 PM EDT 03/27/2025 8:07 PM EDT us Sylvia Dominguez APRN URINE ORDERABLES Final Result [facility] [address] [place] [id number] [phone] * (ABNORMAL) Urinalysis Microscopic Only (03/27/2025 8:01 PM EDT) WBC, UA 0-2(A) None Seen /HPF 03/27/2025 8:[address] [facility] RBC, UA 3-5(A) None Seen /HPF 03/27/2025 8:[address] [facility] Bacteria, UA 1+(A) None Seen, Trace 03/27/2025 8:[address] [facility] Mucus 1+(A) None Seen 03/27/2025 8:[address] [facility] SQUAMOUS EPITHELIAL 3-5(A) None Seen /HPF 03/27/2025 8:[address] [facility] Urine URINE SPECIMEN COLLECTION, CLEAN CATCH / Unknown 03/27/2025 8:01 PM EDT 03/27/2025 8:07 PM EDT Sylvia Dominguez APRN URINE ORDERABLES Final Result Performing Organization Address [facility]/ZIP Co de Phone Number [facility] [address] [place] [address] * Screen, urine (03/27/2025 8:01 PM EDT) Preg Test, Ur Negative Negative, Inconclusive 03/27/2025 8:[address] [facility] Urine 03/27/2025 8:01 PM EDT 03/27/2025 8:06 PM EDT Sylvia Dominguez APRN URINE ORDERABLES Final Result [facility] [address] [place] [address] * XR chest 1 view portable / [...] Samuels. Transcribed by Carolina Mcnair(R). Sylvia Dominguez [facility] IM DIAGNOSTIC IMAGING ORDERAB LES Final Result * (ABNORMAL) CBC with Auto Diff (03/27/2025 7:34 PM EDT) WBC 8.7 4.0 - 10.0 K/ L 03/27/2025 7:[address] [facility] RBC 4.79 3.93 - 5.22 M/ L 03/27/2025 7:[address] [facility] Hemoglobin 13.8 11.2 - 15.7 GM/DL 03/27/2025 7:[address] [facility] Hematocrit 42.2 34.1 - 44.9 % 03/27/2025 7:[address] [facility] MCV 88 79 - 95 fL 03/27/2025 7:[address] [facility] MCH 28.8 25.6 - 32.2 pg 03/27/2025 7:[address] [facility] MCHC 32.7 32.2 - 35.5 GM/DL 03/27/2025 7:[address] [facility] RDW 13.6 11.7 - 14.4 % 03/27/2025 7:[address] [facility] Platelets 332 140 - 375 K/CU MM 03/27/2025 7:[address] [facility] MPV 9.6 9.4 - 12.3 fL 03/27/2025 7:[address] [facility] % Neutros 77(H) 34 - 71 % 03/27/2025 7:[address] [facility] % Lymphs 14(L) 19 - 52 % 03/27/2025 7:[address] [facility] % Monos 7 5 - 13 % 03/27/2025 7:[address] [facility] % Eos 1 1 - 6 % 03/27/2025 7:[address] [facility] % Baso 1 0 - 1 % 03/27/2025 7:[address] [facility] NRBC Absolute <0.01 0 - 0.012 K/ul 03/27/2025 7:[address] [facility] # Neutros 6.72(H) 1.56 - 6.13 K/ L 03/27/2025 7:[address] [facility] # Lymphs 1.26 1.18 - 3.74 K/ L 03/27/2025 7:[address] [facility] # Monos 0.59 0.24 - 0.86 K/ L 03/27/2025 7:[address] [facility] # Eos 0.10 0.04 - 0.36 K/ L 03/27/2025 7:[address] [facility] # Baso 0.04 0.01 - 0.08 K/ L 03/27/2025 7:[address] [facility] Immature Granulocytes-Re lative 0.20 0.01 - 0.43 % 03/27/2025 7:[address] [facility] # IG <0.03 0.00 - 0.03 K/uL 03/27/2025 7:[address] [facility] Blood Venipuncture / Unknown 03/27/2025 7:34 PM EDT 03/27/2025 7:[address] [facility] - 03/27/2025 7:37 PM [...] APRN LAB BLOOD ORDERABLES Final Res ult Performing Organization Address [facility] Phone Number [facility] [address] [phone] * High Sensitivity Troponin I (03/27/2025 7:34 PM EDT) [facility] Troponin I High Sensitivity (pg/mL) <5.0 <=14 pg/mL 03/27/2025 8:[address] [facility] Blood Venipuncture / Unknown 03/27/2025 7:34 PM EDT 03/27/2025 7:[address] [facility] - 03/27/2025 8:25 PM EDT Applicable to [facility] only. Effective January 07 the lab will begin using a new chemistry analyzer. HsTroponin methodology, reference ranges and critical values have changed. Sylvia Dominguez APRN LAB BLOOD ORDERABLES Final Res ult Performing Organization Address [facility] de Phone Number [facility] [address] [phone] * D-dimer (03/27/2025 7:34 PM EDT) [facility] D-Dimer, Quant 0.28 0.19 - 0.58 MG/L FEU 03/27/2025 7:[address] [facility] Comment:Important: A D-Dimer result of less than 0.50 mg/L FEU indicates a very low probability of DVT or PE. Blood Venipuncture / Unknown 03/27/2025 7:34 PM EDT 03/27/2025 7:35 PM EDT us Sylvia Dominguez CUT ORDER HAND LAB BLOOD ORDERABLES Final Res ult [facility] [address] [phone] * Lipase (03/27/2025 7:34 PM EDT) Lipase 21 <=60 U/L 03/27/2025 7:[address] [facility] Blood Venipuncture / Unknown 03/27/2025 7:34 PM EDT 03/27/2025 7:35 PM EDT Sylvia Dominguez APRN LAB BLOOD ORDERABLES Final Res ult Performing Organization Address [facility]/ZIP Co de Phone Number [facility] [address] [phone] * (ABNORMAL) Comprehensive metabolic panel (03/27/2025 7:34 PM EDT) Pathologist [facility] Sodium 140 136 - 145 meq/L 03/27/2025 7:[address] [facility] Potassium 3.9 3.4 - 5.1 meq/L 03/27/2025 7:[address] [facility] Chloride 109 98 - 112 meq/L 03/27/2025 7:[address] [facility] CO2 24 22 - 29 meq/L 03/27/2025 7:[address] [facility] Calcium 8.9 8.4 - 10.2 mg/dL 03/27/2025 7:[address] [facility] Glucose 126(H) 74 - 100 mg/dL 03/27/2025 7:[address] [facility] BUN 15.4 7.0 - 18.7 mg/dL 03/27/2025 7:[address] [facility] Creatinine 0.76 0.57 - 1.11 mg/dL 03/27/2025 7:[address] [facility] BUN/Creatinine 20 8 - 20 03/27/2025 7:[address] [facility] eGFR (mL/min/1.73m2) 103 >=60 mL/min/1. 73m2 03/27/2025 7:[address] [facility] Albumin 3.8 3.5 - 5.0 g/dL 03/27/2025 7:[address] [facility] Alkaline Phosphatase 53 40 - 150 U/L 03/27/2025 7:[address] [facility] ALT 11 <=34 U/L 03/27/2025 7:[address] [facility] Comment: ALT2 reagent used for testing does not contain P5P supplementation and therefore may miss ALT elevations in patients with B6 deficiency. This population may be as high as 10% in the [place], with risk factors including malabsorption, drug interactions, and alcoholic hepatitis. AST 21 11 - 34 U/L 03/27/2025 7:[address] [facility] Comment: AST2 reagent used for testing does not contain P5P supplementation and therefore may miss AST elevations in patients with B6 deficiency. This population may be as high as 10% in the [place], with risk factors including malabsorption, drug interactions, and alcoholic hepatitis. Total Bilirubin 0.3 0.2 - 1.2 mg/dL 03/27/2025 7:[address] [facility] Protein, Total 7.4 6.4 - 8.3 g/dL 03/27/2025 7:[address] [facility] Globulin 3.6 2.5 - 4.1 g/dL 03/27/2025 7:[address] [facility] Anion Gap 11 4 - 12 03/27/2025 7:[address] [facility] A/G Ratio 1.1 0.7 - 1.9 03/27/2025 7:[address] [facility] Osmolality Calc 281.9 mOsm/kg 7:[address] [facility] Blood Venipuncture / Unknown 03/27/2025 7:34 PM EDT 03/27/2025 7:35 PM EDT us Sylvia Dominguez APRN LAB BLOOD ORDERABLES Final Res ult [facility] [address] [phone] * ECG 12 lead (03/27/2025 7:29 PM EDT) VENTRICULAR RATE EKG/MIN 80 BPM GE MUSE ATRIAL RATE (MCT) 85 BPM GE MUSE HI Interval 106 ms GE MUSE QRS-INTERVAL (MSEC) 76 ms GE MUSE QT Interval 370 ms GE MUSE QTC Interval 426 ms GE MUSE P [place] 29 degrees GE MUSE R AXIS (MCT) 68 degrees GE MUSE T Wave [place] 61 degrees GE MUSE [place] Diagnosis Age and gender specific ECG analysis Sinus rhythm with sinus arrhythmia with short HI Otherwise normal ECG No previous ECGs available Confirmed by BRIAN VITALE M.D. ([id number]) on 03/28/2025 7:38:00 PM GE MUSE 03/27/2025 7:29 PM EDT 03/28/2025 7:38 PM EDT us Sylvia Dominguez APRN ECG ORDERABLES Final Result Performing Organization Address [facility] Co de Phone Number GE MUSE * EKG-SCANNED (03/27/2025) Narrative 03/27/2025 Ordered by an unspecified provider. us Default Scanning Provider SCAN ORDERS Final Result from Last 3 Months Insurance BLUE CROSS/BLUE SHIELD Care Teams Slider Assembler Relationship Specialty Start Date End Date Garrison Salamanca [address] [place] [address] PCP - General 03/27/25
--- OUTSIDE RECORDS SUMMARY | 2025-04-01 15:18 | XMS_ITS | Clinical Summary ---
Author Organization [employer] Address [address] [place] [address] Care Team Providers Care C++ Quant Developer Name Role Phone Garrison Salamanca Primary Care Provider [phone] Allergies Active Allergy Reactions Criticality Noted Date Comments Sulfa (Sulfonamide Antibiotics) 03/16 Medications LORazepam (ATIVAN) 0.5 MG tablet Take 1 tablet (0.5 mg total) by mouth every 6 (six) hours as needed for anxiety. Max Daily Amount: 2 mg Active levalbuterol (XOPENEX HFA) 45 mcg/actuation inhaler Inhale 1-2 puffs by mouth every 4 (four) hours as needed for wheezing. 1 Inhaler 03/27/2025 Active Encounters Date Type Department Care Team Description 03/27/2025 7:20 PM EDT - 03/27/2025 9:32 PM EDT Emergency [facility] Emergency Department [address] [place] [address] Cuco Nova DO Palpitations (Primary Dx) Discharge Disposition: Home or Self Care 03/27/2025 Travel from Last 3 Months Social History Tobacco Use Types Packs/Day Years [...] 03/27/2025 7:18 PM EDT Plan of Treatment Health Maintenance Due Date Last Done Comments Depression Screening (12+) 1998 HIV Screening 2001 Hepatitis C Screening 2004 Lipid Panel 2006 Pap Smear 2007 DTAP/TDAP/TD VACCINES (2 - T d or Tdap) 04/03/2012 04/03/2002 COVID-19 VACCINE (2023-2 5 season) 2024 10/23/2021, 01/19/2021, 12/22/2020 Influenza Vaccine (Season Ended) 2025 Tobacco Cessation Counseling and Screening (12+) 03/27/2026 03/27/2025 Pneumococcal Vaccine: 0-49 Years Aged Out No longer eligible b ased on patient's age to complete this topic Procedures Procedure Name Priority Date/Time Associated Diagnosis [...] UA Light Yellow 03/27/2025 8:15 PM EDT [facility] Clarity, UA Clear Clear 03/27/2025 8:15 PM EDT [facility] Specific [place], UA 1.033(H) 1.005 - 1.030 03/27/2025 8:15 PM EDT [facility] pH, UA 7.0 6.0 - 8.0 03/27/2025 8:15 PM EDT [facility] Leukocytes, UA 25 Chris/uL(A) Negative 03/27/2025 8:15 PM EDT [facility] Nitrite, UA Negative Negative 03/27/2025 8:15 PM EDT [facility] Protein, UA Trace(A) Negative 03/27/2025 8:15 PM EDT [facility] Glucose, UA Normal Normal 03/27/2025 8:15 PM EDT [facility] Ketones, UA Negative Negative 03/27/2025 8:15 PM EDT [facility] Bilirubin, UA Negative Negative 03/27/2025 8:15 PM EDT [facility] Blood, UA 1+(A) Negative 03/27/2025 8:15 PM EDT [facility] Urobilinogen, UA 2 mg/dL(A) Normal 03/27/2025 8:15 PM EDT [facility] Specimen Source Urine, Clean Catch 03/27/2025 8:15 PM EDT [facility] Urine URINE SPECIMEN COLLECTION, CLEAN CATCH / Unknown 03/27/2025 8:01 PM EDT 03/27/2025 8:07 PM EDT Sylvia Dominguez APRN URINE ORDERABLES Final Result Performing Organization Address [facility]/ZIP Co de Phone Number [facility] [address] [phone] * (ABNORMAL) Urinalysis Microscopic Only (03/27/2025 8:01 PM EDT) WBC, UA 0-2(A) None Seen /HPF 03/27/2025 8:15 PM EDT [facility] RBC, UA 3-5(A) None Seen /HPF 03/27/2025 8:15 PM EDT [facility] Bacteria, UA 1+(A) None Seen, Trace 03/27/2025 8:15 PM EDT [facility] Mucus 1+(A) None Seen 03/27/2025 8:15 PM EDT [facility] SQUAMOUS EPITHELIAL 3-5(A) None Seen /HPF 03/27/2025 8:15 PM EDT [facility] Urine URINE SPECIMEN COLLECTION, CLEAN CATCH / Unknown 03/27/2025 8:01 PM EDT 03/27/2025 8:07 PM EDT Sylvia Dominguez APRN URINE ORDERABLES Final Result [facility] [address] [phone] * Screen, urine (03/27/2025 8:01 PM EDT) Preg Test, Ur Negative Negative, Inconclusive 03/27/2025 8:07 PM EDT [facility] Urine 03/27/2025 8:01 PM EDT 03/27/2025 8:06 PM EDT Sylvia Dominguez APRN URINE ORDERABLES Final Result [facility] [address] [phone] * XR chest 1 view portable / [...] 10.0 K/ L 03/27/2025 7:37 PM EDT [facility] RBC 4.79 3.93 - 5.22 M/ L 03/27/2025 7:37 PM EDT [facility] Hemoglobin 13.8 11.2 - 15.7 GM/DL 03/27/2025 7:37 PM EDT [facility] Hematocrit 42.2 34.1 - 44.9 % 03/27/2025 7:37 PM EDT [facility] MCV 88 79 - 95 fL 03/27/2025 7:37 PM EDT [facility] MCH 28.8 25.6 - 32.2 pg 03/27/2025 7:37 PM EDT [facility] MCHC 32.7 32.2 - 35.5 GM/DL 03/27/2025 7:37 PM EDT [facility] RDW 13.6 11.7 - 14.4 % 03/27/2025 7:37 PM EDT [facility] Platelets 332 140 - 375 K/CU MM 03/27/2025 7:37 PM EDT [facility] MPV 9.6 9.4 - 12.3 fL 03/27/2025 7:37 PM EDT [facility] % Neutros 77(H) 34 - 71 % 03/27/2025 7:37 PM EDT [facility] % Lymphs 14(L) 19 - 52 % 03/27/2025 7:37 PM EDT [facility] % Monos 7 5 - 13 % 03/27/2025 7:37 PM EDT [facility] % Eos 1 1 - 6 % 03/27/2025 7:37 PM EDT [facility] % Baso 1 0 - 1 % 03/27/2025 7:37 PM EDT [facility] NRBC Absolute <0.01 0 - 0.012 K/ul 03/27/2025 7:37 PM EDT [facility] # Neutros 6.72(H) 1.56 - 6.13 K/ L 03/27/2025 7:37 PM EDT [facility] # Lymphs 1.26 1.18 - 3.74 K/ L 03/27/2025 7:37 PM EDT [facility] # Monos 0.59 0.24 - 0.86 K/ L 03/27/2025 7:37 PM EDT [facility] # Eos 0.10 0.04 - 0.36 K/ L 03/27/2025 7:37 PM EDT [facility] # Baso 0.04 0.01 - 0.08 K/ L 03/27/2025 7:37 PM EDT [facility] Immature Granulocytes-Re lative 0.20 0.01 - 0.43 % 03/27/2025 7:37 PM EDT [facility] # IG <0.03 0.00 - 0.03 K/uL 03/27/2025 7:37 PM EDT [facility] Blood Venipuncture / Unknown 03/27/2025 7:34 PM EDT 03/27/2025 7:35 PM EDT Narrative [facility] - 03/27/2025 7:37 PM EDT When [...] Blast? Flag noted Atypical Lymph flag noted us Sylvia Dominguez APRN LAB BLOOD ORDERABLES Final Res ult [facility] [address] [phone] * High Sensitivity Troponin I (03/27/2025 7:34 PM EDT) Troponin I High Sensitivity (pg/mL) <5.0 <=14 pg/mL 03/27/2025 8:25 PM EDT [facility] Blood Venipuncture / Unknown 03/27/2025 7:34 PM EDT 03/27/2025 7:35 PM EDT Narrative [facility] - 03/27/2025 8:25 PM EDT Applicable to [facility] only. Effective January 07 the lab will begin using a new chemistry analyzer. HsTroponin methodology, reference ranges and critical values have changed. us Sylvia Dominguez APRN LAB BLOOD ORDERABLES Final Res ult [facility] [address] [phone] * D-dimer (03/27/2025 7:34 PM EDT) Pathologist [facility] D-Dimer, Quant 0.28 0.19 - 0.58 MG/L FEU 03/27/2025 7:48 PM EDT [facility] Comment:Important: A D-Dimer result of less than 0.50 mg/L FEU indicates a very low probability of DVT or PE. Blood Venipuncture / Unknown 03/27/2025 7:34 PM EDT 03/27/2025 7:35 PM EDT Sylvia Dominguez APRN LAB BLOOD ORDERABLES Final Res ult Performing Organization Address [facility]/ZIP Co de Phone Number [facility] [address] [phone] * Lipase (03/27/2025 7:34 PM EDT) [facility] Lipase 21 <=60 U/L 03/27/2025 7:59 PM EDT [facility] Blood Venipuncture / Unknown 03/27/2025 7:34 PM EDT 03/27/2025 7:35 PM EDT Sylvia Dominguez STUDENT ASSISTANCE COUNSELOR LAB BLOOD ORDERABLES Final Res ult [facility] [address] [phone] * (ABNORMAL) Comprehensive metabolic panel (03/27/2025 7:34 PM EDT) [facility] Sodium 140 136 - 145 meq/L 03/27/2025 7:59 PM EDT [facility] Potassium 3.9 3.4 - 5.1 meq/L 03/27/2025 7:59 PM EDT [facility] Chloride 109 98 - 112 meq/L 03/27/2025 7:59 PM EDT [facility] CO2 24 22 - 29 meq/L 03/27/2025 7:[address] [facility] Calcium 8.9 8.4 - 10.2 mg/dL 03/27/2025 7:[address] [facility] Glucose 126(H) 74 - 100 mg/dL 03/27/2025 7:[address] [facility] BUN 15.4 7.0 - 18.7 mg/dL 03/27/2025 7:[address] [facility] Creatinine 0.76 0.57 - 1.11 mg/dL 03/27/2025 7:[address] [facility] BUN/Creatinine 20 8 - 20 03/27/2025 7:[address] [facility] eGFR (mL/min/1.73m2) 103 >=60 mL/min/1. 73m2 03/27/2025 7:[address] [facility] Albumin 3.8 3.5 - 5.0 g/dL 03/27/2025 7:[address] [facility] Alkaline Phosphatase 53 40 - 150 U/L 03/27/2025 7:[address] [facility] ALT 11 <=34 U/L 03/27/2025 7:[address] [facility] Comment: ALT2 reagent used for testing does not contain P5P supplementation and therefore may miss ALT elevations in patients with B6 deficiency. This population may be as high as 10% in the [place], with risk factors including malabsorption, drug interactions, and alcoholic hepatitis. AST 21 11 - 34 U/L 03/27/2025 7:[address] [facility] Comment: AST2 reagent used for testing does not contain P5P supplementation and therefore may miss AST elevations in patients with B6 deficiency. This population may be as high as 10% in the [place], with risk factors including malabsorption, drug interactions, and alcoholic hepatitis. Total Bilirubin 0.3 0.2 - 1.2 mg/dL 03/27/2025 7:[address] [facility] Protein, Total 7.4 6.4 - 8.3 g/dL 03/27/2025 7:[address] [facility] Globulin 3.6 2.5 - 4.1 g/dL 03/27/2025 7:59 PM EDT [facility] Anion Gap 11 4 - 12 03/27/2025 7:59 PM EDT [facility] A/G Ratio 1.1 0.7 - 1.9 03/27/2025 7:59 PM EDT [facility] Osmolality Calc 281.9 mOsm/kg 7:59 PM EDT [facility] Blood Venipuncture / Unknown 03/27/2025 7:34 PM EDT 03/27/2025 7:35 PM EDT us Sylvia Dominguez APRN LAB BLOOD ORDERABLES Final Res ult [facility] [address] [phone] * ECG 12 lead (03/27/2025 7:29 PM EDT) VENTRICULAR RATE EKG/MIN 80 BPM GE MUSE ATRIAL RATE (MCT) 85 BPM GE MUSE RI Interval 106 ms GE MUSE QRS-INTERVAL (MSEC) 76 ms GE MUSE QT Interval 370 ms GE MUSE QTC Interval 426 ms GE MUSE P [place] 29 degrees GE MUSE R AXIS (MCT) 68 degrees GE MUSE T Wave [place] 61 degrees GE MUSE [place] Diagnosis Age and gender specific ECG analysis Sinus rhythm with sinus arrhythmia with short RI Otherwise normal ECG No previous ECGs available Confirmed by BRIAN VITALE M.D. ([id number]) on 03/28/2025 7:38:00 PM GE MUSE 03/27/2025 7:29 PM EDT 03/28/2025 7:38 PM EDT us Sylvia Dominguez APRN ECG ORDERABLES Final Result [employer] MUSE * EKG-SCANNED (03/27/2025) Narrative 03/27/2025 Ordered by an unspecified provider. us Default Scanning Provider SCAN ORDERS Final Result from Last 3 Months [place] [address] [place] [phone] BLUE CROSS/BLUE SHIELD Care Teams C++ Quant Developer Relationship Specialty Start Date End Date [address] [place] [address] [place] [address] PCP - General 03/27/25
[2025-04-01 17:58] LABS: 25-OH Vitamin D, Total 41.1 ng/mL (30-100)
[2025-04-02 12:14] LABS: FSH 10.4 mIU/mL (.); LH 28.2 mIU/mL (.); Testosterone,Total 72 ng/dL (8-60)
== END 2025-04-01 23:59 | disposition home or self-care (01) ==
LOC: LAB 15:15
PROVIDERS: PCP Nurse Practitioner Family; Visit Provider Obstetrics & Gynecology
DX: F41.9 Anxiety disorder, unspecified (principal); R23.2 Flushing; R00.0 Tachycardia, unspecified
CPT/HCPCS: 36415; 82306; 82670; 83001; 83002; 84144; 84403

== ENCOUNTER 2025-04-09 14:59 | Outpatient (CLI) | payer BC, SELFPAY ==
--- OUTSIDE RECORDS SUMMARY | 2025-03-27 19:20 | XMS_ITS | Encounter Summary ---
Author Organization [employer] Address [address] [place] [address] Care Team Providers Care Enterprise Systems Architect Name Role Phone Garrison Salamanca Primary Care Provider [phone] Reason for Visit * Reason Comments Palpitations Encounter Details Date Type Department Care Team (Late st Contact Info) Description 03/27/2025 7:20 PM EDT - 03/27/2025 9:32 PM EDT Emergency [facility] [address] [place] [address] [phone] Cuco Nova, DO [address] [place] [address] Palpitations (Primary Dx) Discharge Disposition: Home or Self Care Social History Tobacco Use Types Packs/Day Years Used Date Smoking Tobacco: Never Smokeless Tobacco: Never Tobacco Cessation:Counseling Given: Not Answered Comments Unknown Sex and Gender Information Value Date Recorded Sex Assigned at Not on file Legal Sex Female 6:07 PM CDT Gender Identity Not on file Sexual Orientation Not on file documented as of this encounter Last Filed Vital Signs Vital Sign Reading Time Taken Comments Blood Pressure 124/76 03/27/2025 9:31 PM EDT Pulse 74 03/27/2025 9:31 PM EDT Temperature 36.6 C (97.8 F) 03/27/2025 7:18 PM EDT Respiratory Rate 18 03/27/2025 9:31 PM EDT Oxygen Saturation 100% 03/27/2025 9:31 PM EDT Inhaled Oxygen Concentration - - Weight 81.6 kg (180 lb) 03/27/2025 7:18 PM EDT Height 162.6 cm (5' 4 ) 03/27/2025 7:18 PM EDT Body Mass Index 30.9 03/27/2025 7:18 PM EDT documented in this encounter Discharge Instructions * Attachments The following attachments cannot be sent through Care Everywhere. * Palpitations [id number] ([place]) documented in this encounter Medications at Time of Discharge levalbuterol (XOPENEX HFA) 45 mcg/actuation inhaler Inhale 1-2 puffs by mouth every 4 (four) hours as needed for wheezing. 1 Inhaler 03/27/2025 03/27/2026 LORazepam (ATIVAN) 0.5 MG tablet Take 1 tablet (0.5 mg total) by mouth every 6 (six) hours as needed for anxiety. Max Daily Amount: 2 mg documented as of this encounter ED Notes * Bella Salinas RN - 03/27/2025 9:31 PM EDT Pt. Verbalized discharge instructions and understanding. Pt. Condition stable at time of discharge.Pt. At baseline and ambulatory at time of discharge. Bella Salinas RN 03/27/252131 * Cuco Nova DO - 03/27/2025 7:20 PM EDT Subjective Chief Complaint: Palpitations HPI 39-year-old female presents emergency department with multiple complaints. Patient reports thatshe has been having issues with palpitations, stomach pains, leg cramps, x 3 days. Patient has had 2 prior ER visits and a PCP visit today. Patient reports that her PCP did 2 EKGs today the second was abnormal and sent her to the ER for evaluation. Patient is currently wearing a Holter monitor. She is alert oriented x 3, GCS 15. Patient denies past medical history. Patient reports she was prescribed Ativan but it does not seem to be helping. Patient was seen in triage for a medical screening examination. A brief history and physical examination was performed in triage to initiate a work-up. Rest of care was provided in main ED by a provider. Patient History No past medical history on file. No past surgical history on file. No family history on file. Social History Tobacco Use Smoking status: Never Smokeless tobacco: Never Substance Use Topics Alcohol use: Not on file I reviewed the HPI, ROS and PFSH documentation recorded by others in the medical record and supplemented my note as needed. Review of Systems Review of Systems Constitutional: Negative for chills, fatigue and fever. HENT: Negative for congestion, ear pain, rhinorrhea and sore throat. Eyes: Negative for discharge, itching and visual disturbance. Respiratory: Positive for shortness of breath. Negative for cough, chest tightness, wheezing and stridor. Cardiovascular: Positive for chest pain and palpitations. Negative for leg swelling. Gastrointestinal: Negative for abdominal distention, abdominal pain, constipation, diarrhea, nauseaand vomiting. Genitourinary: Negative for dysuria and flank pain. Musculoskeletal: Positive for myalgias. Negative for back pain. Skin: Negative for rash. Neurological: Negative for headaches. Psychiatric/Behavioral: Negative for confusion and suicidal ideas. Physical Exam ED Triage Vitals [03/27/251917] Encounter Vitals Group BP (!) 146/79 Systolic BP Percentile Diastolic BP Percentile Pulse 82 Resp 18 Temp 97.8 ??F (36.6 ??C) Temp src Tympanic SpO2 100 % Weight 81.6 kg (180 lb) Height 1.626 m (5' 4 ) Head Circumference Peak Flow Pain Score Pain Loc Pain Education Exclude from Growth Chart Physical Exam Vitals and nursing note reviewed. Constitutional: General: She is not in acute distress. Appearance: She is not ill-appearing. HENT: Nose: Nose normal. No congestion. Mouth/Throat: Mouth: Mucous membranes are moist. Eyes: Pupils: Pupils are equal, round, and reactive to light. Cardiovascular: Rate and Rhythm: Normal rate and regular rhythm. Pulmonary: Effort: Pulmonary effort is normal. No respiratory distress. Breath sounds: Normal breath sounds. No stridor. No wheezing, rhonchi or rales. Chest: Chest wall: No tenderness. Abdominal: General: There is no distension. Tenderness: There is no abdominal tenderness. There is no right CVA tenderness, left CVA tendernessor guarding. Musculoskeletal: General: No swelling or tenderness. Normal range of motion. Cervical back: No tenderness. Right lower leg: No edema. Left lower leg: No edema. Skin: General: Skin is warm and dry. Capillary Refill: Capillary refill takes less than 2 seconds. Coloration: Skin is not jaundiced. Findings: No rash. Neurological: General: No focal deficit present. Mental Status: She is alert and oriented to person, place, and time. Mental status is at baseline. Motor: No weakness. Psychiatric: Mood and Affect: Mood normal. Behavior: Behavior normal. Thought Content: Thought content normal. Neurological Exam Mental Status Alert. Oriented to person, place, and time. Cranial Nerves CN III, IV, : Pupils equal round and reactive to light bilaterally. Ortho Exam ED Course & MDM Medications sodium chloride 0.9% (NS) bolus (0 mLs intravenous Stopped 03/27/251) Results for orders placed or performed during the hospital encounter of 03/27/25 Screen, urine Result Value Ref Range Preg Test, Ur Negative Negative, Inconclusive Urinalysis, Reflex Microscopic and Culture If Indicated Result Value Ref Range Color, UA Light Yellow Clarity, UA Clear Clear Specific Amery, UA 1.033 (H) 1.005 - 1.030 pH, UA 7.0 6.0 - 8.0 Leukocytes, UA 25 Chris/uL (A) Negative Nitrite, UA Negative Negative Protein, UA Trace (A) Negative Glucose, UA Normal Normal Ketones, UA Negative Negative Bilirubin, UA Negative Negative Blood, UA 1+ (A) Negative Urobilinogen, UA 2 mg/dL (A) Normal Specimen Source Urine, Clean Catch CBC with Auto Diff Result Value Ref Range WBC 8.7 4.0 - 10.0 K/??L RBC 4.79 3.93 - 5.22 M/??L Hemoglobin 13.8 11.2 - 15.7 GM/DL Hematocrit 42.2 34.1 - 44.9 % MCV 88 79 - 95 fL MCH 28.8 25.6 - 32.2 pg MCHC 32.7 32.2 - 35.5 GM/DL RDW 13.6 11.7 - 14.4 % Platelets 332 140 - 375 K/CU MM MPV 9.6 9.4 - 12.3 fL % Neutros 77 (H) 34 - 71 % % Lymphs 14 (L) 19 - 52 % % Monos 7 5 - 13 % % Eos 1 1 - 6 % % Baso 1 0 - 1 % NRBC Absolute <0.01 0 - 0.012 K/ul # Neutros 6.72 (H) 1.56 - 6.13 K/??L # Lymphs 1.26 1.18 - 3.74 K/??L # Monos 0.59 0.24 - 0.86 K/??L # Eos 0.10 0.04 - 0.36 K/??L # Baso 0.04 0.01 - 0.08 K/??L Immature Granulocytes-Relative 0.20 0.01 - 0.43 % # IG <0.03 0.00 - 0.03 K/uL Comprehensive metabolic panel Result Value Ref Range Sodium 140 136 - 145 meq/L Potassium 3.9 3.4 - 5.1 meq/L Chloride 109 98 - 112 meq/L CO2 24 22 - 29 meq/L Calcium 8.9 8.4 - 10.2 mg/dL Glucose 126 (H) 74 - 100 mg/dL BUN 15.4 7.0 - 18.7 mg/dL Creatinine 0.76 0.57 - 1.11 mg/dL BUN/Creatinine 20 8 - 20 eGFR (mL/min/1.73m2) 103 >=60 mL/min/1.73m2 Albumin 3.8 3.5 - 5.0 g/dL Alkaline Phosphatase 53 40 - 150 U/L ALT 11 <=34 U/L AST 21 11 - 34 U/L Total Bilirubin 0.3 0.2 - 1.2 mg/dL Protein, Total 7.4 6.4 - 8.3 g/dL Globulin 3.6 2.5 - 4.1 g/dL Anion Gap 11 4 - 12 A/G Ratio 1.1 0.7 - 1.9 Osmolality Calc 281.9 mOsm/kg Lipase Result Value Ref Range Lipase 21 <=60 U/L High Sensitivity Troponin I Result Value Ref Range Troponin I High Sensitivity (pg/mL) <5.0 <=14 pg/mL D-dimer Result Value Ref Range D-Dimer, Quant 0.28 0.19 - 0.58 MG/L FEU Urinalysis Microscopic Only Result Value Ref Range WBC, UA 0-2 (A) None Seen /HPF RBC, UA 3-5 (A) None Seen /HPF Bacteria, UA 1+ (A) None Seen, Trace Mucus 1+ (A) None Seen SQUAMOUS EPITHELIAL 3-5 (A) None Seen /HPF ECG 12 lead Result Value Ref Range VENTRICULAR RATE EKG/MIN 80 BPM ATRIAL RATE (MCT) 85 BPM WI Interval 106 ms QRS-INTERVAL (MSEC) 76 ms QT Interval 370 ms QTC Interval 426 ms P Trezev[place] 29 degrees R AXIS (MCT) 68 degrees T Wave Tre[place]ev[place] 61 degrees [place] Diagnosis Age and gender specific ECG analysis Sinus rhythm with sinus arrhythmia with short WI Otherwise normal ECG No previous ECGs available XR chest 1 view portable / bedside Final Result No acute cardiopulmonary process. Images reviewed, interpreted, and dictated by Dr. Rakesh Samuels. Transcribed by Carolina Mcnair(Vitaly). ED Course as of 03/28/25 0242 [facility] Mar 27, [id number] EKG interpreted by me. Normal sinus rhythm. Rate of 80 bpm. Sinus arrhythmia. Artifact present. No obvious ST segment or T wave changes. Otherwise normal EKG [CG] 2033 Chest x-ray independent reviewed interpreted by me negative for acute process. [CG] ED Course User Index [CG] Cuco Nova, Procedures Medical Decision Making Amount and/or Complexity of Data Reviewed Labs: ordered. Radiology: ordered. ECG/medicine tests: ordered. Risk Prescription drug management. Chief complaint: Palpitations History provided by patient, family at bedside, extensive review of records recent visits to [facility], other Initial vitals: Mild hypertension 146/79 otherwise within normal limits Differential diagnosis nonspecific palpitations, cardiac arrhythmia, anxiety, SVT, A-fib, STEMI, NSTEMI, electrolyte disturbance, PE, other Work-up: Orders Placed This Encounter Procedures XR chest 1 view portable / bedside Screen, urine Urinalysis, Reflex Microscopic and Culture If Indicated CBC with Auto Diff Comprehensive metabolic panel Lipase High Sensitivity Troponin I D-dimer Urinalysis Microscopic Only Telemetry monitoring ECG 12 lead Saline lock IV Results: EKG as documented. Normal sinus rhythm. No ischemic changes. Normal EKG. Chest x-ray independent reviewed inter by me negative for acute process. CBC shows normal white cell count hemoglobinhematocrit and platelets CMP without significant abnormality. Normal electrolytes normal renal function. Urinalysis is negative for infection. Lipase is normal at 21. Troponin is negative at less than 5 D-dimer is negative at 0.28. Discussion: Patient presents to the ED for intermittent episodes of palpitations that have been ongoing for the last few days. She also notes some associated shortness of breath. She has been seen in2 other ERs and had negative cardiac workups. She does note that her heart rate becomes elevated with some anxiety and then that makes her heart rate worse and her anxiety worse. They started her on some Ativan which has improved her symptoms. She saw her primary care physician today who did EKGs and the second EKG had an abnormality but she is unsure what this abnormality was. I am unable to seethis EKG. EKG performed here today is normal sinus rhythm with normal rate, sinus arrhythmia and noischemic changes. There is no evidence of STEMI or NSTEMI. Troponin is negative. No evidence of ACS. She is monitored here in the ED for multiple hours without evidence of cardiac arrhythmia or sinustachycardia. Electrolytes are within normal limits. She has outpatient follow-up with cardiology at930 tomorrow morning. I do feel this is reasonable. Of note I did review CT chest for PE performed at [facility] 2 days ago. It was negative for PE. There was mention of mosaic attenuation in the right lung which may reflect air trapping or small airway disease. There could be a component of bronchitis or pleurisy secondary to these findings contributing to her shortness of breath but she had no cough or wheeze on evaluation. Questionable allergy to albuterol secondary to her daughter having albuterol and it causing significant tachycardia so we will try levo albuterol as needed. She is appropriate for discharge follow-up outpatient with cardiology as already scheduled for . Strict return precaution given. Patient and family agreeable to this plan Consultations: N/A Disposition: Discharge Assessment & Plan Clinical Impression Diagnosis Comment Added By Time Added Palpitations Cuco Nova DO 03/27/2025 8:56 PM Disposition Discharge [1] - 03/27/2025 8:56 PM Discharge Medication List as of 03/27/2025 9:11 PM START taking these medications Details levalbuterol (XOPENEX HFA) 45 mcg/actuation inhaler Inhale 1-2 puffs by mouth every 4 (four) hours as needed for wheezing., Starting Yuly 03/27/2025, Until Mon03/27/2026 at 2359, Normal Contact information for follow-up Garrison Salamanca Relationship: PCP - [place] [address] [place] [address] [facility] [phone] Next Steps: Follow up Electronically Signed By Cuco Nova DO 03/28/25 0243 * Kavita Patel RN - 03/27/2025 7:18 PM EDT Pt states she has had intermittent SOA and palpitations x3 days. Pt has multiple complaints. documented in this encounter Plan of Treatment Not on file documented as of this encounter Procedures Procedure Name Priority Date/Time Associated Diagnosis Comments URINALYSIS, REFLEX MICROSCOPIC AND CULTURE IF INDICATED STAT 03/27/2025 8:01 PM EDT URINALYSIS MICROSCOPIC STAT 8:01 PM EDT SCREEN, URINE STAT 03/27/2025 8:01 PM EDT XR CHEST 1 VIEW PORTABLE / BEDSIDE STAT 03/27/2025 7:42 PM EDT CBC W/ AUTO DIFF STAT 03/27/2025 7:34 PM EDT HIGH SENSITIVITY TROPONIN I STAT 03/27/2025 7:34 PM EDT D-DIMER STAT 03/27/2025 7:34 PM EDT LIPASE STAT 03/27/2025 7:34 PM EDT COMPREHENSIVE METABOLIC PANEL STAT 03/27/2025 7:34 PM EDT FS_MODEL_IP_ECG 12-LEAD STAT 03/27/2025 7:29 PM EDT EKG-SCANNED 03/27/2025 documented in this encounter Results * (ABNORMAL) Urinalysis Microscopic Only (03/27/2025 8:01 PM EDT) WBC, UA 0-2(A) None Seen /HPF 03/27/2025 8:[address] [facility] RBC, UA 3-5(A) None Seen /HPF 03/27/2025 8:[address] [facility] Bacteria, UA 1+(A) None Seen, Trace 03/27/2025 8:[address] [facility] Mucus 1+(A) None Seen 03/27/2025 8:[address] [facility] SQUAMOUS EPITHELIAL 3-5(A) None Seen /HPF 03/27/2025 8:[address] [facility] Urine URINE SPECIMEN COLLECTION, CLEAN CATCH / Unknown 03/27/2025 8:01 PM EDT 03/27/2025 8:07 PM EDT Sylvia Dominguez APRN URINE ORDERABLES Final Result Performing Organization Address City/State/[facility] Co de Phone Number [facility] [address] [phone] * (ABNORMAL) Urinalysis, Reflex Microscopic and Culture If Indicated (03/27/2025 8:01 PM EDT) Color, UA Light Yellow 03/27/2025 8:[address] [facility] Clarity, UA Clear Clear 03/27/2025 8:[address] [facility] Specific Amery, UA 1.033(H) 1.005 - 1.030 03/27/2025 8:[address] [facility] pH, UA 7.0 6.0 - 8.0 03/27/2025 8:[address] [facility] Leukocytes, UA 25 Chris/uL(A) Negative 03/27/2025 8:[address] [facility] Nitrite, UA Negative Negative 03/27/2025 8:[address] [facility] Protein, UA Trace(A) Negative 03/27/2025 8:[address] [facility] Glucose, UA Normal Normal 03/27/2025 8:[address] [facility] Ketones, UA Negative Negative 03/27/2025 8:[address] [facility] Bilirubin, UA Negative Negative 03/27/2025 8:[address] [facility] Blood, UA 1+(A) Negative 03/27/2025 8:[address] [facility] Urobilinogen, UA 2 mg/dL(A) Normal 03/27/2025 8:[address] [facility] Specimen Source Urine, Clean Catch 03/27/2025 8:[address] [facility] Urine URINE SPECIMEN COLLECTION, CLEAN CATCH / Unknown 03/27/2025 8:01 PM EDT 03/27/2025 8:07 PM EDT us Sylvia Dominguez APRN URINE ORDERABLES Final Result Performing Organization Address City/[facility]/ZIP Co de Phone Number [facility] [address] [place] [address] * Screen, urine (03/27/2025 8:01 PM EDT) Preg Test, Ur Negative Negative, Inconclusive 03/27/2025 8:[address] [facility] Urine 03/27/2025 8:01 PM EDT 03/27/2025 8:06 PM EDT Sylvia Dominguez APRN URINE ORDERABLES Final Result [facility] [address] [phone] * XR chest 1 view portable / bedside (03/27/2025 7:42 PM EDT) Anatomical Region Laterality Modality X-Ray 03/27/2025 8:17 PM EDT Impressions 03/27/2025 8:18 PM EDT No acute cardiopulmonary process. Images reviewed, interpreted, and dictated by Dr. Rakesh Samuels. Transcribed by Carolina Mcnair(R). Narrative 03/27/2025 8:18 PM EDT PORTABLE CHEST 03/27/2025 7:42 PM HISTORY: Heart palpitations. COMPARISON: None. FINDINGS: The heart is proper size. The mediastinum is unremarkable. The lungs are clear. There is no pneumothorax. The osseous structures are unremarkable. Procedure Note Rakesh Samuels MD - 03/27/2025 PORTABLE CHEST 03/27/2025 7:42 PM HISTORY: Heart palpitations. COMPARISON: None. FINDINGS: The heart is proper size. The mediastinum is unremarkable. The lungs are clear. There is no pneumothorax. The osseous structures are unremarkable. IMPRESSION: No acute cardiopulmonary process. Images reviewed, interpreted, and dictated by Dr. Rakesh Samuels. Transcribed by Carolina Mcnair(R). Sylvia Dominguez APRN IMG DIAGNOSTIC IMAGING ORDERAB LES Final Result * D-dimer (03/27/2025 7:34 PM EDT) Pathologist [facility] D-Dimer, Quant 0.28 0.19 - 0.58 MG/L FEU 03/27/2025 7:[address] [facility] Comment:Important: A D-Dimer result of less than 0.50 mg/L FEU indicates a very low probability of DVT or PE. Blood Venipuncture / Unknown 03/27/2025 7:34 PM EDT 03/27/2025 7:35 PM EDT Sylvia Dominguez APRN LAB BLOOD ORDERABLES Final Res ult [facility] [address] [phone] * High Sensitivity Troponin I (03/27/2025 7:34 PM EDT) [facility] Troponin I High Sensitivity (pg/mL) <5.0 <=14 pg/mL 03/27/2025 8:[address] [facility] Blood Venipuncture / Unknown 03/27/2025 7:34 PM EDT 03/27/2025 7:[address] [facility] - 03/27/2025 8:25 PM EDT Applicable to [facility] only. Effective January 07 the lab will begin using a new chemistry analyzer. HsTroponin methodology, reference ranges and critical values have changed. us Sylvia Dominguez [employer] LAB BLOOD ORDERABLES Final Res ult [facility] [address] [phone] * Lipase (03/27/2025 7:34 PM EDT) Lipase 21 <=60 U/L 03/27/2025 7:[address] [facility] Blood Venipuncture / Unknown 03/27/2025 7:34 PM EDT 03/27/2025 7:35 PM EDT us Sylvia Dominguez [employer] LAB BLOOD ORDERABLES Final Res ult Performing Organization Address [facility]/ZIP Co de Phone Number [facility] [address] [phone] * (ABNORMAL) Comprehensive metabolic panel (03/27/2025 7:34 PM EDT) Sodium 140 136 - 145 meq/L 03/27/2025 7:[address] [facility] Potassium 3.9 3.4 - 5.1 meq/L 03/27/2025 7:[address] [facility] Chloride 109 98 - 112 meq/L 03/27/2025 7:[address] [facility] CO2 24 22 - 29 meq/L 03/27/2025 7:[address] [facility] Calcium 8.9 8.4 - 10.2 mg/dL 03/27/2025 7:[address] [facility] Glucose 126(H) 74 - 100 mg/dL 03/27/2025 7:59 PM [facility] BUN 15.4 7.0 - 18.7 mg/dL 03/27/2025 7:59 PM [facility] Creatinine 0.76 0.57 - 1.11 mg/dL 03/27/2025 7:59 PM [facility] BUN/Creatinine 20 8 - 20 03/27/2025 7:59 PM [facility] eGFR (mL/min/1.73m2) 103 >=60 mL/min/1. 73m2 03/27/2025 7:59 PM [facility] Albumin 3.8 3.5 - 5.0 g/dL 03/27/2025 7:59 PM [facility] Alkaline Phosphatase 53 40 - 150 U/L 03/27/2025 7:59 PM [facility] ALT 11 <=34 U/L 03/27/2025 7:59 PM [facility] Comment: ALT2 reagent used for testing does not contain P5P supplementation and therefore may miss ALT elevations in patients with B6 deficiency. This population may be as high as 10% in the [place], with risk factors including malabsorption, drug interactions, and alcoholic hepatitis. AST 21 11 - 34 U/L 03/27/2025 7:59 PM [facility] Comment: AST2 reagent used for testing does not contain P5P supplementation and therefore may miss AST elevations in patients with B6 deficiency. This population may be as high as 10% in the [place], with risk factors including malabsorption, drug interactions, and alcoholic hepatitis. Total Bilirubin 0.3 0.2 - 1.2 mg/dL 03/27/2025 7:59 PM [facility] Protein, Total 7.4 6.4 - 8.3 g/dL 03/27/2025 7:59 PM [facility] Globulin 3.6 2.5 - 4.1 g/dL 03/27/2025 7:59 PM [facility] Anion Gap 11 4 - 12 03/27/2025 7:59 PM [facility] A/G Ratio 1.1 0.7 - 1.9 03/27/2025 7:59 PM [facility] Osmolality Calc 281.9 mOsm/kg 7:[address] [facility] Blood Venipuncture / Unknown 03/27/2025 7:34 PM EDT 03/27/2025 7:35 PM EDT us Sylvia Riporalia [employer] LAB BLOOD ORDERABLES Final Res ult [facility] [address] [phone] * (ABNORMAL) CBC with Auto Diff (03/27/2025 7:34 PM EDT) WBC 8.7 4.0 - 10.0 K/ L 03/27/2025 7:[address] [facility] RBC 4.79 3.93 - 5.22 M/ L 03/27/2025 7:[address] [facility] Hemoglobin 13.8 11.2 - 15.7 GM/DL 03/27/2025 7:[address] [facility] Hematocrit 42.2 34.1 - 44.9 % 03/27/2025 7:[address] [facility] MCV 88 79 - 95 fL 03/27/2025 7:[address] [facility] MCH 28.8 25.6 - 32.2 pg 03/27/2025 7:[address] [facility] MCHC 32.7 32.2 - 35.5 GM/DL 03/27/2025 7:[address] [facility] RDW 13.6 11.7 - 14.4 % 03/27/2025 7:[address] [facility] Platelets 332 140 - 375 K/CU MM 03/27/2025 7:[address] [facility] MPV 9.6 9.4 - 12.3 fL 03/27/2025 7:[address] [facility] % Neutros 77(H) 34 - 71 % 03/27/2025 7:[address] [facility] % Lymphs 14(L) 19 - 52 % 03/27/2025 7:[address] [facility] % Monos 7 5 - 13 % 03/27/2025 7:[address] [facility] % Eos 1 1 - 6 % 03/27/2025 7:[address] [facility] % Baso 1 0 - 1 % 03/27/2025 7:[address] [facility] NRBC Absolute <0.01 0 - 0.012 K/ul 03/27/2025 7:[address] [facility] # Neutros 6.72(H) 1.56 - 6.13 K/ L 03/27/2025 7:[address] [facility] # Lymphs 1.26 1.18 - 3.74 K/ L 03/27/2025 7:[address] [facility] # Monos 0.59 0.24 - 0.86 K/ L 03/27/2025 7:[address] [facility] # Eos 0.10 0.04 - 0.36 K/ L 03/27/2025 7:[address] [facility] # Baso 0.04 0.01 - 0.08 K/ L 03/27/2025 7:[address] [facility] LABORATORY Immature Granulocytes-Re lative 0.20 0.01 - 0.43 % 03/27/2025 7:[address] [facility] # IG <0.03 0.00 - 0.03 K/uL 03/27/2025 7:[address] [facility] Blood Venipuncture / Unknown 03/27/2025 7:34 PM EDT 03/27/2025 7:[address] [facility] - 03/27/2025 7:37 PM EDT When CBC w/ Auto Diff is ordered the lab will add a Manual Differential as a quality check at no additional charge if: Lymphocytes greater than seventy five percent with normal or increased WBC Monocytes greater than Fifteen percent Basophil greater than four percent Bands >10% or several immature myeloids are seen on scan Blast? Flag noted Atypical Lymph flag noted Sylvia Dominguez APRN LAB BLOOD ORDERABLES Final Res ult [facility] [address] [phone] * ECG 12 lead (03/27/2025 7:29 PM EDT) VENTRICULAR RATE EKG/MIN 80 BPM GE MUSE ATRIAL RATE (MCT) 85 BPM GE MUSE [place] Interval 106 ms GE MUSE QRS-INTERVAL (MSEC) 76 ms GE MUSE QT Interval 370 ms GE MUSE QTC Interval 426 ms GE MUSE P [place] 29 degrees GE MUSE R AXIS (MCT) 68 degrees GE MUSE T Wave [place] 61 degrees GE MUSE [place] Diagnosis Age and gender specific ECG analysis Sinus rhythm with sinus arrhythmia with short [place] Otherwise normal ECG No previous ECGs available Confirmed by BRIAN VITALE M.D. ([id number]) on 03/28/2025 7:38:00 PM GE MUSE 03/27/2025 7:29 PM EDT 03/28/2025 7:38 PM EDT us Sylvia Dominguez APRN ECG ORDERABLES Final Result Performing Organization Address [facility] de Phone Number GE MUSE * EKG-SCANNED (03/27/2025) Narrative 03/27/2025 Ordered by an unspecified provider. us Default Scanning Provider SCAN ORDERS Final Result documented in this encounter Visit Diagnoses Diagnosis Palpitations- Primary documented in this encounter Administered Medications Inactive Administered Medications - up to 3 most recent administrations Medication Order MAR Action Action Date Dose Rate Site sodium chloride 0.9% (NS) bolus 1,000 mL Once, intravenous, Administer over 60 Minutes, On Yuly 03/27/25 at 1925, For 1 dose New Bag 03/27/2025 7:40 PM EDT 1,000 mLs 1000 mL/hr sodium chloride flush 10 mL 10 mL As needed, intravenous, line care, Line care for flush, Starting on Yuly 03/27/25 at 1917, For 30 doses documented in this encounter Active and Recently Administered Medications Times are shown in EDT. Scheduled Medication Order 03/25/2025 03/26/2025 03/27/2025 levalbuterol (XOPENEX HFA) inhaler 1 puff Once, inhalation, On Yuly 03/27/25 at 2100, For 1 dose 2108 (Not Given - Pr ovider: Bella Salinas RN - Reason: Other (with Comment) - Comment: Hospital pharmacy does not carry, MD to call it in) sodium chloride 0.9% (NS) bolus (COMPLETED) 1,000 mL Once, intravenous, Administer over 60 Minutes, On Yuly 03/27/25 at 1925, For 1 dose 1939 (New Bag - Prov ider: Brittnee Pringle RN)2130 (Stopped - Provider: Bella Salinas RN) PRN Medication Order 03/25/2025 03/26/2025 03/27/2025 sodium chloride flush 10 mL 10 mL As needed, intravenous, line care, Line care for flush, Starting on Yuly 03/27/25 at 1917, For 30 doses documented in this encounter Care Teams Enterprise Systems Architect Relationship Specialty Start Date End Date Shabana Salamancaharrisonraissa [address] [place] [address] PCP - General 03/27/25 documented as of this encounter
--- OUTSIDE RECORDS SUMMARY | 2025-04-09 15:02 | XMS_ITS | Continuity of Care Document ---
Author Organization [place] [facility] Address [address] [facility] [place] [address] Care Team Providers Care Field Service Analyst Name Role Phone SINA WILHELMROCIORosibel Primary Care Provider [phone] Assessment Encounter Date Assessment Date Assessment LastModified [...] [facility], [address], [address], [place], [address], 14:08:16 TSH + free T4, serum 2024 025 [facility], [address], [address], [place], [address], 5 14:08:14 insulin, serum 2024 025 [facility], [address], [place] [address], [place], [address], 5 14:08:19 CBC w/ auto diff 2024 025 [facility], [address], [place] [address], [place], [address], 5 14:08:14 CMP, serum or plasma 2024 025 [facility], [address], [place] [address], [place], [address], 5 14:08:15 erythrocyt e sedimentat ion rate by westergren method 2024 025 [facility], [address], [place] [address], [place], [address], 5 14:08:18 rf (rheumatoi d factor), serum 2024 025 [facility], [address], [place] [address], [place], [address], 5 18:43:59 cobalamin and folate panel, serum 2024 025 [facility], [address], [place] [address], [place], [address], 5 14:08:16 WANDER + rf (antinucle ar antibodies + rheumatoid factor), quantitati ve, serum 2024 025 [facility], [address], [place] [address], [place], [address], 5 14:08:17 magnesium, serum or plasma 2024 025 [facility], [address], [place] [address], [place], [address], 5 14:08:19 vitamin D, 25-hydroxy , total, serum 2024 025 [facility], [address], [place] [address], [place], [address], 5 14:08:17 Referral [facility]ymphedema consult 2024 025 [facility] [address], [place], [address], 16:40:14 Procedures None recorded. Surgeries None recorded. Imaging None recorded. Medication Orders Zepbound 2.5 mg/0.5 mL subcutaneo us pen injector [address], [place], [address], 08:40:25 Patient TargetsNo targets recorded. Patient Instructions Encounter Date Encounter Id Patient Instructions Last Modified By Organization Details Last Modified Time 03/17/2025 [id number] Treament Plan: Patient will start medication as directed. Patient will continue exercise, watch calorie intake, and follow up for weight check in 1 month. [email or web address] Not available 03/17/2025 09:32:55 Reason for Referral Lymphedema Consult for Liped john Referring Physician: Garrison Salamanca, Family Medicine, Encounter Date: 03/17/2025 Results Created Date Observation Date Name Description Value Unit Range Abnormal Flag Note LastModifiedBy Organization Detail LastModifiedTime 03/27/2003/26/2025 elect rocar diogr am No observ ation record ed. [place] [address], [place], [address], 03/27/2025 09:31:10 03/27/20 25 03/26/2025 elect rocar diogr am No observ ation record ed. [facility] [address], [place], [address], 03/27/2025 09:31:10 03/27/20 25 03/28/2025 elect rocar diogr am No observ ation record ed. [address], [address], 03/28/2025 08:10:58 03/27/20 25 03/27/2025 elect rocar diogr am No observ ation record ed. [facility] [address], [place], [address], 03/28/2025 08:09:22 03/31/20 25 03/27/2025 elect jae monge am No observ ation record ed. [email or web address], [place], [address], 04/01/2025 16:32:41 Result Notes None recorded. Problems Name Problem SNOMED Code Status Onset Date Resolution Date Notes Provider Name and Address Organization Details Recorded Time Anxiety 73219050 Active 022 Garrison Salamanca, DIRECTOR OF ASSESSMENT [address], [place], [address], [facility] - [facility] 2 11:51:10 Depressive disorder 70579932 Active 022 Garrison Salamanca, DIRECTOR OF ASSESSMENT [address], [place], [address], [facility] - [facility] 2 11:51:25 Obesity 664591644 Active 023 Garrison Salamanca, DIRECTOR OF ASSESSMENT [address], [place], [address], [place] - [facility] 3 16:36:41 Problem Notes None recorded. Procedures Surgical History Date Name Laterality Status Provider Name and Address Organization Details Recorded Time 03/27/20 Medication Reconcilliation completed Shannan James [place] - [facility] 03/27/2025 15:46:32 Imaging Results None recorded. Procedure Notes None recorded. Medical Equipment None Reported. Allergies Allergen ID Allergen Name Allergen Category Reaction Reaction Severity Criticality Documentation Date Start Date Code Code System Note Provider Name and Address Organization Details Recorded Time 75230 Substance with sulfonami de structure and antibacte rial mechanism of action (substanc e) medicatio n vomiting Not available Not available 07/22/20162007 04093 8003 SNOMED React ion: Nause a/vom iting ; Comme nt: Sulfo namid es; Not Available [facility] 6 09:27:28 Medications Name Sig Start Date Stop Date Status Note LastModified by Organization Details LastModified Time tretinoin aloe vera 0.025% 1% cream # apply pea sized amount to the face at bedtime. Follow with moisturi zer 03/17 completed Not Available Not Available Not Available minoxidil dexametha sone dutasteri de tretinoin 5% 0.1% 0.05% 0.025% solution # Apply to scalp once daily. 03/17 completed Not Available Not Available Not Available doxycycli ne hyclate 100 mg capsule TAKE 1 CAPSULE BY MOUTH TWICE DAILY FOR 7 DAYS 2024 active Not Available Not Available Not Avai lable citalopra m 10 mg tablet TAKE ONE (1) TABLET EVERY DAY BY ORAL ROUTE. active Not Available Not Available No t Available Anucort-H C 25 mg supposito ry INSERT 1 SUPPOSIT ORY TWICE DAILY RECTALLY FOR 14 DAYS 09/30 completed Not Available Not Available Not Available phentermi ne 37.5 mg tablet 01/26 completed Not Available Not Available Not Available oxycodone -acetamin ophen 5 mg-325 mg tablet 09/30 completed Not Available Not Available Not Available lorazepam 0.5 mg tablet TAKE ONE TABLET BY MOUTH EVERY 8 HOURS NEEDED FOR ANXIETY MAY CAUSE DROWSINE SS 04/07 completed Not Available Not Available Not Available metoclopr amide 5 mg tablet TAKE ONE TABLET BY MOUTH FOUR TIMES DAILY FOR 14 DAYS (take 30 minutes BEFORE meals) 07/22 completed Not Available Not Available Not Available cephalexi n 500 mg capsule Take 1 capsule twice a day by oral route for 7 days. 08/25 completed Not Available Not Available Not Available bupropion HCl 75 mg tablet TAKE ONE (1) TABLET DAILY BY ORAL ROUTE FOR 14 DAYS. then increase to 1 tab bid x 2 weeks 03/17 completed Not Available Not Available Not Available omeprazol e 20 mg capsule,d elayed release TAKE 2 CAPSULES BY MOUTH EVERY DAY 09/30 completed Not Available Not Available Not Available norgestim ate-ethin yl estradiol 0.18mg/0. 215mg/0.2 5mg-0.035 mg(28)tab let 1 po daily as directed 09/30 completed Not Available Not Available Not Available hydroxyzi ne HCl 25 mg tablet TAKE ONE TABLET BY MOUTH THREE TIMES DAILY 04/07 completed Not Available Not Available Not Available metoprolo l succinate ER 25 mg tablet,ex tended release 24 hr Take 1 tablet every day by oral route. active Not Available Not Available No t Available dexametha sone sodium phosphate 4 mg/mL injection solution Inject 1 mL as needed by intramus cular route. 08/25 completed Not Available Not Available Not Available azelastin e 137 mcg (0.1 %) nasal spray TWO (2) SPRAY INTRANAS ALLY TWICE A DAY; ADMINIST ER INTO EACH NOSTRIL 09/30 completed Not Available Not Available Not Available methylpre dnisolone 4 mg tablets in a dose pack TAKE ACCORDIN G TO PACKAGE INSTRUCT IONS --TAKE WITH FOOD-- -- FINISH ALL MEDICINE -- 09/30 completed Not Available Not Available Not Available clobetaso l 0.05 % scalp solution APPLY SOLUTION TOPICALL Y TO SCALP AT BEDTIME FOR 30 DAYS STRAIGHT 09/30 completed Not Available Not Available Not Available medroxypr ogesteron e 150 mg/mL intramusc ular suspensio n Inject 1 mL by intramus cular route as directed . 01/26 completed Not Available Not Available Not Available escitalop chris 5 mg tablet TAKE ONE (1) TABLET EVERY DAY BY ORAL ROUTE. 01/26 completed Not Available Not Available Not Available metoprolo l tartrate 25 mg tablet TAKE ONE TABLET BY MOUTH TWICE DAILY active Not Available Not Available No t Available nitrofura ntoin monohydra te/macroc rystals 100 mg capsule TAKE ONE (1) CAPSULE (100 MG) ORALLY EVERY 12 HOURS FOR 7 DAYS; MUST ADMINIST ER WITH A MEAL/SANJAY D active Not Available Not Available No t Available Effexor XR 50mg daily 08/25 completed Not Available Not Available Not Available levocetir izine 5 mg tablet TAKE 1 TABLET BY MOUTH EVERY DAY 09/30 completed Not Available Not Available Not Available Ferate 240 mg (27 mg iron) tablet TAKE 1 TABLET BY MOUTH ONCE DAILY 07/22 completed Not Available Not Available Not Available Wegovy 1.7 mg/0.75 mL subcutane ous pen injector active Not Available Not Available Not Available Wegovy 1 mg/0.5 mL subcutane ous pen injector Inject 1 mg under the skin weekly for 4 weeks. 09/30 completed Not Available Not Available Not Available Wegovy 0.25 mg/0.5 mL subcutane ous pen injector Inject 1 mg every week by subcutan eous route. 09/30 completed Not Available Not Available Not Available Wegovy 0.5 mg/0.5 mL subcutane ous pen injector INJECT 0.5 MG TWICE A WEEK BY SUBCUTAN EOUS ROUTE. 09/30 completed Not Available Not Available Not Available Mounjaro 2.5 mg/0.5 mL subcutane ous pen injector active Not Available Not Available Not Available Zepbound 2.5 mg/0.5 mL subcutane ous pen injector INJECT TWO AND A HALF (2 & 1/2) MG SUBCUTAN EOUSLY EVERY WEEK active hasn't started this Not Available Not Available Not Available Vitals Date Recorded Body height Body mass index (BMI) Body weight Heart rate Oxygen saturation Oxygen saturation in Arterial blood by Pulse oximetry Respiratory rate Systolic blood pressure Diastolic blood pressure Provider Name and Address Organization Details Last Updated DateTime 5 162.56 cm 31.2 kg/m2 80936.0 2 g 58 /min 99 % 99 % 18 /min 118 mm[Hg] 72 mm[Hg] Yasmin Workmans [place] - [facility] 5 09:29:00 Social History [...] Or The Highest Degree You Have Received? [id number] Information not available 07/22/2022 Have There Been [...] Do You Have A Medical Power Of Sap Pi Developer? 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 [id number] Information not available 07/22/2022 Do you have [...] colitis N Cerebrovascular Disease N Depression N Guillain-[place] N Sleep Apnea N Aneurysm N Bronchitis [...] quadrivalent, preservative 2 completed Shannan James null, [place] - [facility] 08/02/2022 16:19:20 Influenza, split virus, quadrivalent, preservative 3 completed Yasmin Mcclain null[place] - [facility] 07/27/2023 15:44:11 Td (adult), 2 Lf tetanus toxoid, preservative free, adsorbed 2 completed Shannan James null[place] - [facility] 08/02/2022 14:41:49 Hep B, adolescent [...] SNOMED-CT Code Diagnosis ICD10 Code Diagnosis Note [id number] Garrison Salamanca APRN [address] [address] 03/17/2025 09:18:04 03/17/2025 10:21:17 Obesity 917584081 E66.9 continue a low fat/calori e/carb dietexerci se plan exercise 30 mins a day 3 x a week Lipedema 395758284 R60.9 Fatigue 94217493 R53.83 Health Concerns Section Related Observation LastModified by Organization Detai ls LastModified Time None Recorded Concern Status LastModified by Organization Details LastModified Time None Recorded Payers Encounter Date Sequence Insurance Name Policy Number Policy Carlton Covered Member ID Carlton Member ID Guarantor Name 03/17/2025 1 [place] [id number] Chloe Acosta [id number] Chloe Acosta Notes Date Note Type [...] no matter what she does.feeling fatigued Garrison Salamanca APRN [address], [place], [address], [place] - [facility] 03/17/2025 10:13:31 OBGyn Episode No OBEpisode recorded.
--- OUTSIDE RECORDS SUMMARY | 2025-04-09 15:02 | XMS_ITS | Patient Health Record ---
Author Organization [facility]it [facility] Address [address] [place] [address] Care Team Providers Care Customer Support Representative Name Role Phone Linwood Umana Primary Care Provider Linwood Sanchez Unavailable [phone] Migration, Provider Unavailable Unavailable Allergies Allergen (clinical [...] [facility] [address] [facility] [address] [place] [address] 01/18/2025 Provider Migration Plan Of Treatment No Information Insurance Providers Payer Name Payer Address Payer Phone Subscriber Number Group Number Insured Name Patient Relationship to Insured Coverage Start Date Coverage End Date ANA CRISTINA BLUE CROSS BLUE SHIELD [address] [place] [address] [id number] Chloe Acosta Self - patient is the insured Medical (General) History Hospitalization History Reason Date(Month/Year) [facility]-child
--- OUTSIDE RECORDS SUMMARY | 2025-04-09 15:02 | XMS_ITS | Encounter Summary ---
Author Organization [facility] Address [address] [place] [address] Care Team Providers Care Java Integration Developer Name Role Phone clint Shabanajordon Primary Care Provider [phone] Encounter Details Date Type Department Care Team [...] on filedocumented in this encounter Care Teams Java Integration Developer Relationship Specialty Start Date End Date CheikhGarrison [address] [place] [address] PCP - General 03/27/25 documented as of this encounter
--- OUTSIDE RECORDS SUMMARY | 2025-04-09 15:02 | XMS_ITS | Continuity of Care Document ---
Author Organization [facility] Address [address] [facility] [place] [address] Care Team Providers Care Coordinate Measuring Equipment Operator Name Role Phone LIAM SALAMANCA Primary Care Provider Assessment No assessment recorded. Plan of Treatment Reminders Order Date Submit Date Provider Last Modified By Organization Details Last Modified Time Details Appointments None recorded. Lab None recorded. Referral None recorded. Procedures None recorded. Surgeries None recorded. Imaging None recorded. Medication Orders citalopram 10 mg tablet [address], [address], 16:24:05 Patient TargetsNo targets recorded. Patient InstructionsNo instructions recorded. Reason for Referral None Reported. Results Created Date Observation Date Name Description Value Unit Range Abnormal Flag Note LastModifiedBy Organization Detail LastModifiedTime 03/27/2003/26/2025 elect rocar diogr am No observ ation record ed. [facility] [address], [place], [address], 03/27/2025 09:31:10 03/27/2003/26/2025 elect rocar diogr am No observ ation record ed. [facility] [address], [place], [address], 03/27/2025 09:31:10 03/27/20 25 03/28/2025 elect rocar diogr am No observ ation record ed. [address], [place], [address], 03/28/2025 08:10:58 03/27/20 25 03/27/2025 elect rocar diogr am No observ ation record ed. [facility] [address], [place], [address], 03/28/2025 08:09:22 03/31/20 25 03/27/2025 elect rocar diogr am No observ ation record ed. [email or web address] [address], [address], 04/01/2025 16:32:41 Result Notes None recorded. Problems Name Problem SNOMED Code Status Onset Date Resolution Date Notes Provider Name and Address Organization Details Recorded Time Anxiety 65827032 Active 022 Shabanajordon Salamanca, FUNERAL DIRECTOR'S ASSISTANT [address], [place], [address], [place] - [facility] 2 11:51:10 Depressive disorder 91886160 Active 022 Shabanajordon Salamanca, FUNERAL DIRECTOR'S ASSISTANT [address], [place], [address], [place] - [facility] 2 11:51:25 Obesity 947646573 Active 023 Shabanajordon Salamanca, FUNERAL DIRECTOR'S ASSISTANT [address], [place], [address], [place] - [facility] 3 16:36:41 Problem Notes None recorded. Procedures Surgical History Date Name Laterality Status Provider Name and Address Organization Details Recorded Time 03/27/20 Medication Reconcilliation completed Shannan James [place] - [facility] 03/27/2025 15:46:32 Imaging Results None recorded. Procedure Notes None recorded. Medical Equipment None Reported. Allergies Allergen ID Allergen Name Allergen Category Reaction Reaction Severity Criticality Documentation Date Start Date Code Code System Note Provider Name and Address Organization Details Recorded Time 22683 Substance with sulfonami de structure and antibacte rial mechanism of action (substanc e) medicatio n vomiting Not available Not available 07/22/20162007 66181 8003 SNOMED React ion: Nause a/vom iting ; Comme nt: Cadence akhtar es; Not Available [facility] 6 09:27:28 Medications Name Sig Start Date [...] TAKE 1 TABLET BY MOUTH EVERY DAY 12/16 /2024 completed Not Available Not Available Not Available [...] Not Available Vitals Date Recorded Body height Heart rate Oxygen saturation Oxygen saturation in Arterial blood by Pulse oximetry Respiratory rate Systolic blood pressure Diastolic blood pressure Provider Name and Address Organization Details Last Updated DateTime 5 162.56 cm 89 /min 100 % 100 % 18 /min 148 mm[Hg] 82 mm[Hg] Shannan James [place] - [facility] 16:00:53 Social History Question Answer Notes LastModified by Organizat ion Details LastModified Time Tobacco Smoking Status Former Smoker Shannan James null, [place] - [facility] 07/22/2022 11:33:01 Do You [...] Or The Highest Degree You Have Received? [id number] Information not available 07/22/2022 Have There Been [...] Do You Have A Medical Power Of Quality Compliance Consultant? No Information not available 07/22/2022 What Was [...] available 07/22/2022 What is your occupation? [employer] services Information not available 07/22/2022 Mental Status Question Answer Note LastModified by Organizat ion Details LastModified Time Do you feel stressed (tense, restless, nervous, or anxious, or unable to sleep at night)? [id number] Information not available 07/22/2022 Do you have [...] Diseases N Kidney Stones N Hyperthyroidism N Rheumatoid arthritis N Blood Transfusion N Erectile Dysfunction N amputation N Colonoscopy N Skin Lesions N COPD N Depression N Pneumonia N Incontinence N Murmur N Edema N Alzheimer's Disease N Migraine Headaches N Tobacco Abuse N Anxiety Disorder N Muscle, Joint, or Bone Problems N Hemorrhoids N Obesity N Vision or Eye Problems N Restless Leg Syndrome N Arthritis N Infertility N Polyps N Carpal Tunnel N Mental Disorder N Acid Reflux (GERD) N Cancer N Stroke N Varicosities N Tendonitis N Crohn's Disease N Hypercholesterolemia N Skin Cancer N Fibromyalgia N Headaches N Anal Fissure N Irritable Bowel Syndrome [...] colitis N Cerebrovascular Disease N Depression N Guillain-[place] N Sleep Apnea N Aneurysm N Bronchitis [...] or pediatric 3 completed Shannan James null, [place] - [facility] 08/02/2022 14:41:49 Past Encounters Encounter ID Performer Location Encounter Start Date Encounter Closed Date Diagnosis/Indication Diagnosis SNOMED-CT Code Diagnosis ICD10 Code Diagnosis Note [id number] Liam Salamanca [address] [address] 03/17/2025 09:18:04 03/17/2025 10:21:17 Obesity 687755866 E66.9 continue a low fat/calori e/carb dietexerci se plan exercise 30 mins a day 3 x a week Lipedema 910907094 R60.9 Fatigue 07162228 R53.83 [id number] Liam Salamanca [address] [address] 03/27/2025 15:46:00 03/27/2025 17:22:44 Intermittent palpitations 748806453 R00.2 while in office pt c/o of palpitatio ns and states she feels dizzy. ekg obtained-n sr- while still hooked up pt states she feels it again 2nd ekg obtained sinus tach. spoke with cardiology and recommende d pt to go to ed for eval. did not want to go ems, pt wanted mother called. mother came took pt to ed via pov. at bedisde at all times Sinus tachycardia 452214 01 R00.0 [id number] Liam Salamanca [address] [place] [address] 03/28/2025 15:42:06 03/28/2025 16:10:06 Anxiety 64593698 F41.9 Patient identified triggers for anxiety and impact of anxious thinking on functionin g. Discussed strategies to regulate symptoms and need for compliance with treatment. medication discussed with pt- recheck in 2 weeks and increase dose if needed, low dose started Health Concerns Section Related Observation LastModified by Organization Detai ls LastModified Time None Recorded Concern Status LastModified by Organization Details LastModified Time None Recorded Payers Encounter Date Sequence Insurance Name Policy Number Policy Carlton Covered Member ID Carlton Member ID Guarantor Name 03/28/2025 1 [place] [id number] Chloe Acosta [id number] Chloe Acosta Notes Date Note Type Note Provider Name and Address Organization Details Recorded Time 03/28/2025 text/html 39 yr old female presents for anxiety. pt states she was seen again last night at [facility] for palpitations and tachy and was told everything is ok. saw cardiology this am and has some test scheduled. pt states she has taken citalopram and effexor in the past and tolerated it well and they worked. would like to restart one of them Liam Salamanca, SOCORRO [address], [place], [address], [place] - [facility] 03/28/2025 16:24:48 OBGyn Episode No OBEpisode recorded.
--- OUTSIDE RECORDS SUMMARY | 2025-04-09 15:02 | XMS_ITS | Clinical Summary ---
Author Organization Healthcare Address [address] [id number] Care Team Providers Care General Partner Name Role Phone Garrison Salamanca SAMPLE PROCESSOR Primary Care Provider [phone] Social History Tobacco Use Types Packs/Day Years Used Date Smoking Tobacco: Never Assessed Comments Unknown Sex and Gender Information Value Date Recorded Sex Assigned at Not on file Legal Sex Female 10:30 AM EDT Gender Identity Not on file Sexual Orientation Not on file Plan of Treatment Upcoming Encounters Date Type Department Care Team (Late st Contact Info) Description 05/08/2025 1:50 PM EDT Consult [facility] [address] [place] [address] Mary German, SAMPLE PROCESSOR [address] [place] [address] Health Maintenance Due Date Last Done Comments [facility]-Depression Screening 1986 [facility]-HIV Screening 1986 [facility]-Hepatitis C Screening 1986 [facility]-/Child/Adol SDOH Screenings 1986 [facility]-Varicella Vaccines (1 of 2 - 13+ 2-dose series) 1999 HPV Vaccines (1 - 3-dose series) 2001 [facility]-DTaP,Tdap,and Td Vaccines (2 - Tdap) 04/04/2002 04/03/2002 [facility]- SDOH Screenings 2004 [facility]-Adult SDOH Screenings 2004 [facility]-Pap Smear 2007 [facility]-Cervical Cancer Screening 2016 [facility]-HPV/Cotest 2016 [id number]-18 Vaccine ( season) 2024 10/23/2021, 01/19/2021, 12/22/2020 [facility]-Influenza Vaccine (Season Ended) 2025 07/27/2023, 08/02/2022 [facility]-Zoster Vaccines (1 of 2) 2036 [facility]-Hepatitis B Vaccines Completed 004, 05/05/2003, 03/25/2003 [facility]-HIB Vaccines Aged Out No longer e ligible based on patient's age to complete this topic [facility]-Hepatitis A Vaccines Aged Out No longer eligible based on patient's age to complete this topic [facility]-IPV Vaccines Aged Out No longer e ligible based on patient's age to complete this topic [facility]-Pneumococcal Vaccine: Pediatrics (0 to 5 Years) and At-Risk Patients (6 to 49 Years) Aged Out No longer eligible b ased on patient's age to complete this topic [facility]-Rotavirus Vaccines Aged Out No lo nger eligible based on patient's age to complete this topic Insurance ANA CRISTINA Care Teams General Partner Relationship Specialty Start Date End Date Garrison Salamanca APRN [address] [place] [address] [place] [address] PCP - General 03/28/25
--- OUTSIDE RECORDS SUMMARY | 2025-04-09 15:02 | XMS_ITS | Referral Summary ---
Author Organization [employer] Address [address] [place] [address] Care Team Providers Care Canal Lock Tender Chief Operator Name Role Phone Garrison Salamanca Primary Care Provider [phone] Encounters Date Type Department Care Team Description 03/27/2025 Travel 03/27/2025 7:20 PM EDT - 03/27/2025 9:32 PM EDT Emergency [facility] Emergency Department [address] [place] [address] Cuco Nova DO Palpitations (Primary [...] UA Light Yellow 03/27/2025 8:15 PM EDT [facility] Clarity, UA Clear Clear 03/27/2025 8:15 PM EDT [facility] Specific [place], UA 1.033(H) 1.005 - 1.030 03/27/2025 8:15 PM EDT [facility] pH, UA 7.0 6.0 - 8.0 03/27/2025 8:15 PM EDT [facility] Leukocytes, UA 25 Chris/uL(A) Negative 03/27/2025 8:15 PM EDT [facility] Nitrite, UA Negative Negative 03/27/2025 8:15 PM EDT [facility] Protein, UA Trace(A) Negative 03/27/2025 8:15 PM EDT [facility] Glucose, UA Normal Normal 03/27/2025 8:15 PM EDT [facility] Ketones, UA Negative Negative 03/27/2025 8:15 PM EDT [facility] Bilirubin, UA Negative Negative 03/27/2025 8:15 PM EDT [facility] Blood, UA 1+(A) Negative 03/27/2025 8:15 PM EDT [facility] Urobilinogen, UA 2 mg/dL(A) Normal 03/27/2025 8:15 PM EDT [facility] Specimen Source Urine, Clean Catch 03/27/2025 8:15 PM EDT [facility] Urine URINE SPECIMEN COLLECTION, CLEAN CATCH / Unknown 03/27/2025 8:01 PM EDT 03/27/2025 8:07 PM EDT us Sylvia Dominguez APRN URINE ORDERABLES Final Result [facility] [address] [place] [id number] [phone] * (ABNORMAL) Urinalysis Microscopic Only (03/27/2025 8:01 PM EDT) WBC, UA 0-2(A) None Seen /HPF 03/27/2025 8:15 PM EDT [facility] RBC, UA 3-5(A) None Seen /HPF 03/27/2025 8:15 PM EDT [facility] Bacteria, UA 1+(A) None Seen, Trace 03/27/2025 8:15 PM EDT [facility] Mucus 1+(A) None Seen 03/27/2025 8:15 PM EDT [facility] SQUAMOUS EPITHELIAL 3-5(A) None Seen /HPF 03/27/2025 8:15 PM EDT [facility] Urine URINE SPECIMEN COLLECTION, CLEAN CATCH / Unknown 03/27/2025 8:01 PM EDT 03/27/2025 8:07 PM EDT Sylvia Dominguez APRN URINE ORDERABLES Final Result Performing Organization Address [facility]/ZIP Co de Phone Number [facility] [address] [place] [address] * Screen, urine (03/27/2025 8:01 PM EDT) Preg Test, Ur Negative Negative, Inconclusive 03/27/2025 8:07 PM EDT [facility] Urine 03/27/2025 8:01 PM EDT 03/27/2025 8:06 PM EDT Sylvia Dominguez APRN URINE ORDERABLES Final Result [facility] [address] [place] [address] * XR chest 1 view portable / [...] 10.0 K/ L 03/27/2025 7:37 PM EDT [facility] RBC 4.79 3.93 - 5.22 M/ L 03/27/2025 7:37 PM EDT [facility] Hemoglobin 13.8 11.2 - 15.7 GM/DL 03/27/2025 7:37 PM EDT [facility] Hematocrit 42.2 34.1 - 44.9 % 03/27/2025 7:37 PM EDT [facility] MCV 88 79 - 95 fL 03/27/2025 7:37 PM EDT [facility] MCH 28.8 25.6 - 32.2 pg 03/27/2025 7:37 PM EDT [facility] MCHC 32.7 32.2 - 35.5 GM/DL 03/27/2025 7:37 PM EDT [facility] RDW 13.6 11.7 - 14.4 % 03/27/2025 7:37 PM EDT [facility] Platelets 332 140 - 375 K/CU MM 03/27/2025 7:37 PM EDT [facility] MPV 9.6 9.4 - 12.3 fL 03/27/2025 7:37 PM EDT [facility] % Neutros 77(H) 34 - 71 % 03/27/2025 7:37 PM EDT [facility] % Lymphs 14(L) 19 - 52 % 03/27/2025 7:37 PM EDT [facility] % Monos 7 5 - 13 % 03/27/2025 7:37 PM EDT [facility] % Eos 1 1 - 6 % 03/27/2025 7:37 PM EDT [facility] % Baso 1 0 - 1 % 03/27/2025 7:37 PM EDT [facility] NRBC Absolute <0.01 0 - 0.012 K/ul 03/27/2025 7:37 PM EDT [facility] # Neutros 6.72(H) 1.56 - 6.13 K/ L 03/27/2025 7:37 PM EDT [facility] # Lymphs 1.26 1.18 - 3.74 K/ L 03/27/2025 7:37 PM EDT [facility] # Monos 0.59 0.24 - 0.86 K/ L 03/27/2025 7:37 PM EDT [facility] # Eos 0.10 0.04 - 0.36 K/ L 03/27/2025 7:37 PM EDT [facility] # Baso 0.04 0.01 - 0.08 K/ L 03/27/2025 7:37 PM EDT [facility] Immature Granulocytes-Re lative 0.20 0.01 - 0.43 % 03/27/2025 7:37 PM EDT [facility] # IG <0.03 0.00 - 0.03 K/uL 03/27/2025 7:37 PM EDT [facility] Blood Venipuncture / Unknown 03/27/2025 7:34 PM EDT 03/27/2025 7:35 PM EDT Narrative [facility] - 03/27/2025 7:37 PM EDT When [...] ORDERABLES Final Res ult Performing Organization Address [facility] Phone Number [facility] [address] [phone] * High Sensitivity Troponin I (03/27/2025 7:34 PM EDT) [facility] Troponin I High Sensitivity (pg/mL) <5.0 <=14 pg/mL 03/27/2025 8:25 PM EDT [facility] Blood Venipuncture / Unknown 03/27/2025 7:34 PM EDT 03/27/2025 7:35 PM EDT Narrative [facility] - 03/27/2025 8:25 PM EDT Applicable to [facility] only. Effective January 07 the lab will begin using a new chemistry analyzer. HsTroponin methodology, reference ranges and critical values have changed. Sylvia Dominguez APRN LAB BLOOD ORDERABLES Final Res ult Performing Organization Address [facility] de Phone Number [facility] [address] [phone] * D-dimer (03/27/2025 7:34 PM EDT) [facility] D-Dimer, Quant 0.28 0.19 - 0.58 MG/L FEU 03/27/2025 7:48 PM EDT [facility] Comment:Important: A D-Dimer result of less than 0.50 mg/L FEU indicates a very low probability of DVT or PE. Blood Venipuncture / Unknown 03/27/2025 7:34 PM EDT 03/27/2025 7:35 PM EDT us Sylvia Dominguez DEVOPS ENGINEER LAB BLOOD ORDERABLES Final Res ult [facility] [address] [phone] * Lipase (03/27/2025 7:34 PM EDT) Lipase 21 <=60 U/L 03/27/2025 7:59 PM EDT [facility] Blood Venipuncture / Unknown 03/27/2025 7:34 PM EDT 03/27/2025 7:35 PM EDT Sylvia Dominguez APRN LAB BLOOD ORDERABLES Final Res ult Performing Organization Address [facility]/ZIP Co de Phone Number [facility] [address] [phone] * (ABNORMAL) Comprehensive metabolic panel (03/27/2025 7:34 PM EDT) Pathologist [facility] Sodium 140 136 - 145 meq/L 03/27/2025 7:59 PM EDT [facility] Potassium 3.9 3.4 - 5.1 meq/L 03/27/2025 7:59 PM EDT [facility] Chloride 109 98 - 112 meq/L 03/27/2025 7:59 PM EDT [facility] CO2 24 22 - 29 meq/L 03/27/2025 7:59 PM EDT [facility] Calcium 8.9 8.4 - 10.2 mg/dL 03/27/2025 7:59 PM EDT [facility] Glucose 126(H) 74 - 100 mg/dL 03/27/2025 7:59 PM EDT [facility] BUN 15.4 7.0 - 18.7 mg/dL 03/27/2025 7:59 PM EDT [facility] Creatinine 0.76 0.57 - 1.11 mg/dL 03/27/2025 7:59 PM EDT [facility] BUN/Creatinine 20 8 - 20 03/27/2025 7:59 PM EDT [facility] eGFR (mL/min/1.73m2) 103 >=60 mL/min/1. 73m2 03/27/2025 7:59 PM EDT [facility] Albumin 3.8 3.5 - 5.0 g/dL 03/27/2025 7:59 PM EDT [facility] Alkaline Phosphatase 53 40 - 150 U/L 03/27/2025 7:59 PM EDT [facility] ALT 11 <=34 U/L 03/27/2025 7:59 PM EDT [facility] Comment: ALT2 reagent used for testing does not contain P5P supplementation and therefore may miss ALT elevations in patients with B6 deficiency. This population may be as high as 10% in the [place], with risk factors including malabsorption, drug interactions, and alcoholic hepatitis. AST 21 11 - 34 U/L 03/27/2025 7:59 PM EDT [facility] Comment: AST2 reagent used for testing does not contain P5P supplementation and therefore may miss AST elevations in patients with B6 deficiency. This population may be as high as 10% in the [place], with risk factors including malabsorption, drug interactions, and alcoholic hepatitis. Total Bilirubin 0.3 0.2 - 1.2 mg/dL 03/27/2025 7:59 PM EDT [facility] Protein, Total 7.4 6.4 - 8.3 g/dL 03/27/2025 7:59 PM EDT [facility] Globulin 3.6 2.5 - 4.1 g/dL 03/27/2025 7:59 PM EDT [facility] Anion Gap 11 4 - 12 03/27/2025 7:59 PM EDT [facility] A/G Ratio 1.1 0.7 - 1.9 03/27/2025 7:59 PM EDT [facility] Osmolality Calc 281.9 mOsm/kg 7:59 PM T [facility] Blood Venipuncture / Unknown 03/27/2025 7:34 PM EDT 03/27/2025 7:35 PM EDT us Sylvia Dominguez APRN LAB BLOOD ORDERABLES Final Res ult [facility] [address] [phone] * ECG 12 lead (03/27/2025 7:29 PM EDT) VENTRICULAR RATE EKG/MIN 80 BPM GE MUSE ATRIAL RATE (MCT) 85 BPM GE MUSE AK Interval 106 ms GE MUSE QRS-INTERVAL (MSEC) 76 ms GE MUSE QT Interval 370 ms GE MUSE QTC Interval 426 ms GE MUSE P [place] 29 degrees GE MUSE R AXIS (MCT) 68 degrees GE MUSE T Wave [place] 61 degrees GE MUSE [place] Diagnosis Age and gender specific ECG analysis Sinus rhythm with sinus arrhythmia with short [place] Otherwise normal ECG No previous ECGs available Confirmed by BRIAN VITALE M.D. ([id number]) on 03/28/2025 7:38:00 PM GE MUSE 03/27/2025 7:29 PM EDT 03/28/2025 7:38 PM EDT us Sylvia Dominguez APRN ECG ORDERABLES Final Result Performing Organization Address [facility] Co de Phone Number GE MUSE * EKG-SCANNED (03/27/2025) Narrative 03/27/2025 Ordered by an unspecified provider. us Default Scanning Provider SCAN ORDERS Final Result from Last 3 Months Insurance BLUE CROSS/BLUE SHIELD Care Teams Canal Lock Tender Chief Operator Relationship Specialty Start Date End Date Garrison Salamanca [address] [place] [address] PCP - General 03/27/25
--- OUTSIDE RECORDS SUMMARY | 2025-04-09 15:03 | XMS_ITS | Continuity of Care Document ---
Author Organization [facility] [facility] Address [address] [place] [phone] Care Team Providers Care It Service Technician Name Role Phone LIAM WILHELM Primary Care Provider Assessment Encounter Date Assessment Date Assessment LastModified by Organization Details LastModified Time 03/27/2025 03/27/2025 -Medications were reviewed and any necessary updates and renewals were made, patient instructed to complete as prescribed. -The potential side effects of medications were discussed. -Counseling was done on care goals and ways to prevent future hospitalizatio ns. -Further treatment per orders listed below. [email or web address] Not available 03/27/2025 15:46:32 Plan of Treatment Reminders Order Date Submit Date Provider Last Modified By Organization Details Last Modified Time Details Appointments None recorded. Lab glucose, fingerstick , blood 2024 025 [facility], [address] [place] [address], [phone], 15:45:12 Referral None recorded. Procedures None recorded. Surgeries None recorded. Imaging electrocard iogram 2024 025 [facility], [address] [place] [address], [phone], 15:45:12 Medication Orders None recorded. Patient TargetsNo targets recorded. Patient InstructionsNo instructions recorded. Reason for Referral None Reported. Results Created Date Observation Date Name Description Value Unit Range Abnormal Flag Note LastModifiedBy Organization Detail LastModifiedTime 03/27/20 25 03/27/2025 gluco se, finge rstic k, blood Blood Glucose: mg/dl 106 Not Available [address], [address], 03/27/2025 17:16:52 03/27/20 25 03/27/2025 gluco se, finge rstic k, blood Reference Range (60-100) abnorm al Not Available [address], [address], 03/27/2025 17:16:52 03/27/20 25 03/26/2025 elect rocar diogr am No observ ation record ed. [place] [address], [place], [address], 03/27/2025 09:31:10 03/27/20 25 03/26/2025 elect rocar diogr am No observ ation record ed. [facility] [address], [place], [address], 03/27/2025 09:31:10 03/27/20 25 03/28/2025 elect rocar diogr am No observ ation record ed. [address], [address], 03/28/2025 08:10:58 03/27/20 25 03/27/2025 elect rocar diogr am No observ ation record ed. [facility] [address], [place], [address], 03/28/2025 08:09:22 03/31/20 25 03/27/2025 elect rocar diogr am No observ ation record ed. [email or web address] [address], [address], 04/01/2025 16:32:41 Result Notes None recorded. Problems Name Problem SNOMED Code Status Onset Date Resolution Date Notes Provider Name and Address Organization Details Recorded Time Anxiety 17775221 Active 022 Liam Salamanca, MULTIPLE KNIFE EDGE TRIMMER OPERATOR [address], [place], [address], [facility] - [facility] 2 11:51:10 Depressive disorder 46237449 Active 022 Liam Salamanca, MULTIPLE KNIFE EDGE TRIMMER OPERATOR [address], [place], [address], [facility] - [facility] 2 11:51:25 Obesity 679678460 Active 023 Liam Salamanca, MULTIPLE KNIFE EDGE TRIMMER OPERATOR [address], [place], [address], [facility] - [facility] 3 16:36:41 Problem Notes None recorded. Procedures Surgical History Date Name Laterality Status Provider Name and Address Organization Details Recorded Time 03/27/20 25 Medication Reconcilliation completed Shannan James [place] - [facility] 03/27/2025 15:46:32 Imaging Results None recorded. Procedure Notes None recorded. Medical Equipment None Reported. Allergies Allergen ID Allergen Name Allergen Category Reaction Reaction Severity Criticality Documentation Date Start Date Code Code System Note Provider Name and Address Organization Details Recorded Time 70347 Substance with sulfonami de structure and antibacte rial mechanism of action (substanc e) medicatio n vomiting Not available Not available 07/22/20162007 32141 8003 SNOMED React ion: Nause a/vom iting ; Comme nt: Sulfo namid es; Not Available [facility] 6 09:27:28 Medications Name Sig Start Date Stop Date Status Note LastModified by Organization Details LastModified Time minoxidil dexametha sone dutasteri de tretinoin 5% [...] mg tablets in a dose pack TAKE BRENNON Mcfadden TO PACKAGE INSTRUCT IONS --TAKE WITH FOOD-- [...] Updated DateTime 5 162.56 cm 31.9 kg/m2 80747.1 8 g 76 /min 100 % 100 % 18 /min 140 mm[Hg] 80 mm[Hg] Shannan James [place] - [facility] 5 16:11:54 Date Recorded Body height Heart rate Oxygen saturation Oxygen saturation in Arterial blood by Pulse oximetry Respiratory rate Systolic blood pressure Diastolic blood pressure Provider Name and Address Organization Details Last Updated DateTime 5 162.56 cm 89 /min 100 % 100 % 18 /min 148 mm[Hg] 82 mm[Hg] Shannan James [place] - [facility] 5 16:00:53 Social History Question Answer Notes LastModified by Organizat ion Details LastModified Time Tobacco Smoking Status Former Smoker Shannan James [facility] [place], [place] - [facility] 07/22/2022 11:33:01 Do You [...] Or The Highest Degree You Have Received? [id number] Information not available 07/22/2022 Have There Been [...] Do You Have A Medical Power Of Applications Developer? 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 [id number] Information not available 07/22/2022 Do you have [...] Stones N Blood Diseases N Hyperthyroidism N Rheumatoid arthritis N Blood Transfusion N Erectile Dysfunction N amputation N Colonoscopy N Skin Lesions N Depression N COPD N Pneumonia N Incontinence N Murmur N Edema N Alzheimer's Disease N Migraine Headaches N Tobacco Abuse N Anxiety Disorder N Muscle, Joint, or Bone Problems N Hemorrhoids N Obesity N Vision or Eye Problems N Restless Leg Syndrome N Arthritis N Polyps N Infertility N Mental Disorder N Carpal Tunnel N Acid Reflux (GERD) N Cancer N Varicosities N Stroke N Tendonitis N Crohn's Disease N Hypercholesterolemia N Skin Cancer N Headaches N Fibromyalgia N Irritable Bowel Syndrome N Anal Fissure N Kidney Disease N Heart Problems N [...] D Deficiency N Cellulitis N Endometriosis N Bladder or Kidney Problems N Fracture N Colorectal Cancer N Liver Disease N Schizophrenia N Panic Disorder N Concussion N Spina Bifida N Allergies/Hayfever N Osteoarthritis N Parkinson's Disease N Disc Protrusion N STI N Esophagitis N Angina N Thyroid Problems N GI Problems N ADD/ADHD N Anemia N Multiple Sclerosis N Abnormal PAP N Lumbago N Mental Illness N Psychiatric Illness N Ovarian Cancer N Diabetes N Bedwetting N Degenerative Disc Disease N Seizures/Epilepsy N Congestive Heart Failure (CHF) N Syncope N Insomnia N Hyperlipidemia N Eczema N Abuse/Domestic Violence N Attention Deficient Disorder N Dementia N Diverticulitis N Ulcerative colitis N Cerebrovascular Disease N Depression N Guillain-[place] N Sleep Apnea N Aneurysm N Bronchitis [...] quadrivalent, preservative 2 completed Shannan James [place] - [facility] 08/02/2022 16:19:20 Influenza, split virus, quadrivalent, preservative 3 completed Yasmin Mcclain [place] - [facility] 07/27/2023 15:44:11 Td (adult), 2 Lf tetanus toxoid, preservative free, adsorbed 2 completed Shannan [place] - [facility] 08/02/2022 14:41:49 Hep B, adolescent [...] 50 mcg/0.25mL dose 1 completed Shannan James naa, [place] - [facility] 08/02/2022 14:41:49 Hep B, adolescent or pediatric 3 completed Shannan James naa, [place] - [facility] 08/02/2022 14:41:49 Past Encounters Encounter ID Performer Location Encounter Start Date Encounter Closed Date Diagnosis/Indication Diagnosis SNOMED-CT Code Diagnosis ICD10 Code Diagnosis Note [id number] Liam Elizabethclint [address] [address] 03/17/2025 09:18:04 03/17/2025 10:21:17 Obesity 243358507 E66.9 continue a low fat/calori e/carb dietexerci se plan exercise 30 mins a day 3 x a week Lipedema 723904537 R60.9 Fatigue 15456949 R53.83 [id number] Liam Elizabethclint [address] [address] 03/27/2025 15:46:00 03/27/2025 17:22:44 Intermittent palpitations 711524978 R00.2 while in office pt c/o of [...] at bedisde at all times Sinus tachycardia 558049 01 R00.0 Health Concerns Section Related Observation LastModified by Organization Detai ls LastModified Time None Recorded Concern Status LastModified by Organization Details LastModified Time None Recorded Payers Encounter Date Sequence Insurance Name Policy Number Policy Carlton Covered Member ID Carlton Member ID Guarantor Name 03/27/2025 1 [place] [id number] 4 Chloeraissa Garciaon [id number] Chloe Vaughan Notes Date Note Type Note Provider Name and Address Organization Details Recorded Time 03/27/2025 text/html Emergency Depart ment Follow-Up RecordReported bypatient.Discharge InformationName of hospital/urgent care patient was seen: ([facility] and [facility]); Patient presented to hospital/urgent care on or around: actual date ; Patient presented to hospital for treatment of: (high heart rate); Treatment received by hospital/urgent care: (Blood work, US, metoprolol, heart monitor- 48 hrs.); Patient's condition has: improved; Hospital records available at the time of this visit: Yes 39 yr old female presents for two episodes of high heart rate and dizziness, she has had a long pms cycle this time x 5 days. She reports being seen at [facility] and [facility] in the last week for these episodes. Reports heart rate from 130-170. Right leg feels restricted and reports the hospital did an US and PE study that was neg. Liam Salamanca APRN [address], [place], [address], [place] - [facility] 03/28/2025 15:49:07 03/28/2025 text/html 39 yr old female presents for anxiety. pt states she was seen again last night at [facility] for palpitations and tachy and was told everything is ok. saw cardiology this am and has some test scheduled. pt states she has taken citalopram and effexor in the past and tolerated it well and they worked. would like to restart one of them Liam Salamanca APRN [address], [place], [address], [place] - [facility] 03/28/2025 16:24:48 OBGyn Episode No OBEpisode recorded.
--- OUTSIDE RECORDS SUMMARY | 2025-04-09 15:03 | XMS_ITS | Clinical Summary ---
Author Organization [facility] [employer] Address [address] [place] [address] Care Team Providers Care Vessel Captain Name Role Phone Garrison Salamanca Primary Care Provider [phone] Allergies Active Allergy Reactions Criticality Noted Date [...] EDT - 03/27/2025 9:32 PM EDT Emergency [facility] Emergency Department [address] [place] [address] Cuco Nova DO Palpitations (Primary [...] UA Light Yellow 03/27/2025 8:15 PM EDT [facility] Clarity, UA Clear Clear 03/27/2025 8:15 PM EDT [facility] Specific [place], UA 1.033(H) 1.005 - 1.030 03/27/2025 8:15 PM EDT [facility] pH, UA 7.0 6.0 - 8.0 03/27/2025 8:15 PM EDT [facility] Leukocytes, UA 25 Chris/uL(A) Negative 03/27/2025 8:15 PM EDT [facility] Nitrite, UA Negative Negative 03/27/2025 8:15 PM EDT [facility] Protein, UA Trace(A) Negative 03/27/2025 8:15 PM EDT [facility] Glucose, UA Normal Normal 03/27/2025 8:15 PM EDT [facility] Ketones, UA Negative Negative 03/27/2025 8:15 PM EDT [facility] Bilirubin, UA Negative Negative 03/27/2025 8:15 PM EDT [facility] Blood, UA 1+(A) Negative 03/27/2025 8:15 PM EDT [facility] Urobilinogen, UA 2 mg/dL(A) Normal 03/27/2025 8:15 PM EDT [facility] Specimen Source Urine, Clean Catch 03/27/2025 8:15 PM EDT [facility] Urine URINE SPECIMEN COLLECTION, CLEAN CATCH / Unknown 03/27/2025 8:01 PM EDT 03/27/2025 8:07 PM EDT Sylvia Dominguez APRN URINE ORDERABLES Final Result Performing Organization Address [facility]/ZIP Co de Phone Number [facility] [address] [phone] * (ABNORMAL) Urinalysis Microscopic Only (03/27/2025 8:01 PM EDT) WBC, UA 0-2(A) None Seen /HPF 03/27/2025 8:15 PM EDT [facility] RBC, UA 3-5(A) None Seen /HPF 03/27/2025 8:15 PM EDT [facility] Bacteria, UA 1+(A) None Seen, Trace 03/27/2025 8:15 PM EDT [facility] Mucus 1+(A) None Seen 03/27/2025 8:15 PM EDT [facility] SQUAMOUS EPITHELIAL 3-5(A) None Seen /HPF 03/27/2025 8:15 PM EDT [facility] Urine URINE SPECIMEN COLLECTION, CLEAN CATCH / Unknown 03/27/2025 8:01 PM EDT 03/27/2025 8:07 PM EDT Sylvia Dominguez APRN URINE ORDERABLES Final Result [facility] [address] [phone] * Screen, urine (03/27/2025 8:01 PM EDT) Preg Test, Ur Negative Negative, Inconclusive 03/27/2025 8:07 PM EDT [facility] Urine 03/27/2025 8:01 PM EDT 03/27/2025 8:06 PM EDT Sylvia Dominguez APRN URINE ORDERABLES Final Result [facility] [address] [phone] * XR chest 1 view portable / [...] 10.0 K/ L 03/27/2025 7:37 PM EDT [facility] RBC 4.79 3.93 - 5.22 M/ L 03/27/2025 7:37 PM EDT [facility] Hemoglobin 13.8 11.2 - 15.7 GM/DL 03/27/2025 7:37 PM EDT [facility] Hematocrit 42.2 34.1 - 44.9 % 03/27/2025 7:37 PM EDT [facility] MCV 88 79 - 95 fL 03/27/2025 7:37 PM EDT [facility] MCH 28.8 25.6 - 32.2 pg 03/27/2025 7:37 PM EDT [facility] MCHC 32.7 32.2 - 35.5 GM/DL 03/27/2025 7:37 PM EDT [facility] RDW 13.6 11.7 - 14.4 % 03/27/2025 7:37 PM EDT [facility] Platelets 332 140 - 375 K/CU MM 03/27/2025 7:37 PM EDT [facility] MPV 9.6 9.4 - 12.3 fL 03/27/2025 7:37 PM EDT [facility] % Neutros 77(H) 34 - 71 % 03/27/2025 7:37 PM EDT [facility] % Lymphs 14(L) 19 - 52 % 03/27/2025 7:37 PM EDT [facility] % Monos 7 5 - 13 % 03/27/2025 7:37 PM EDT [facility] % Eos 1 1 - 6 % 03/27/2025 7:37 PM EDT [facility] % Baso 1 0 - 1 % 03/27/2025 7:37 PM EDT [facility] NRBC Absolute <0.01 0 - 0.012 K/ul 03/27/2025 7:37 PM EDT [facility] # Neutros 6.72(H) 1.56 - 6.13 K/ L 03/27/2025 7:37 PM EDT [facility] # Lymphs 1.26 1.18 - 3.74 K/ L 03/27/2025 7:37 PM EDT [facility] # Monos 0.59 0.24 - 0.86 K/ L 03/27/2025 7:37 PM EDT [facility] # Eos 0.10 0.04 - 0.36 K/ L 03/27/2025 7:37 PM EDT [facility] # Baso 0.04 0.01 - 0.08 K/ L 03/27/2025 7:37 PM EDT [facility] Immature Granulocytes-Re lative 0.20 0.01 - 0.43 % 03/27/2025 7:37 PM EDT [facility] # IG <0.03 0.00 - 0.03 K/uL 03/27/2025 7:37 PM EDT [facility] Blood Venipuncture / Unknown 03/27/2025 7:34 PM EDT 03/27/2025 7:35 PM EDT Narrative [facility] - 03/27/2025 7:37 PM EDT [...] APRN LAB BLOOD ORDERABLES Final Res ult [facility] [address] [phone] * High Sensitivity Troponin I (03/27/2025 7:34 PM EDT) Troponin I High Sensitivity (pg/mL) <5.0 <=14 pg/mL 03/27/2025 8:25 PM EDT [facility] Blood Venipuncture / Unknown 03/27/2025 7:34 PM EDT 03/27/2025 7:35 PM EDT Narrative [facility] - 03/27/2025 8:25 PM EDT Applicable to [facility] only. Effective January 07 the lab will begin using a new chemistry analyzer. HsTroponin methodology, reference ranges and critical values have changed. us Sylvia Dominguez APRN LAB BLOOD ORDERABLES Final Res ult [facility] [address] [phone] * D-dimer (03/27/2025 7:34 PM EDT) Pathologist [facility] D-Dimer, Quant 0.28 0.19 - 0.58 MG/L FEU 03/27/2025 7:48 PM EDT [facility] Comment:Important: A D-Dimer result of less than 0.50 mg/L FEU indicates a very low probability of DVT or PE. Blood Venipuncture / Unknown 03/27/2025 7:34 PM EDT 03/27/2025 7:35 PM EDT Sylvia Dominguez APRN LAB BLOOD ORDERABLES Final Res ult Performing Organization Address [facility]/ZIP Co de Phone Number [facility] [address] [phone] * Lipase (03/27/2025 7:34 PM EDT) [facility] Lipase 21 <=60 U/L 03/27/2025 7:59 PM EDT [facility] Blood Venipuncture / Unknown 03/27/2025 7:34 PM EDT 03/27/2025 7:35 PM EDT Sylvia Dominguez DELIVERY RN LAB BLOOD ORDERABLES Final Res ult [facility] [address] [phone] * (ABNORMAL) Comprehensive metabolic panel (03/27/2025 7:34 PM EDT) [facility] Sodium 140 136 - 145 meq/L 03/27/2025 7:59 PM EDT [facility] Potassium 3.9 3.4 - 5.1 meq/L 03/27/2025 7:59 PM EDT [facility] Chloride 109 98 - 112 meq/L 03/27/2025 7:59 PM EDT [facility] CO2 24 22 - 29 meq/L 03/27/2025 7:59 PM [facility] Calcium 8.9 8.4 - 10.2 mg/dL 03/27/2025 7:59 PM [facility] Glucose 126(H) 74 - 100 mg/dL 03/27/2025 7:59 PM [facility] BUN 15.4 7.0 - 18.7 mg/dL 03/27/2025 7:59 PM [facility] Creatinine 0.76 0.57 - 1.11 mg/dL 03/27/2025 7:59 PM [facility] BUN/Creatinine 20 8 - 20 03/27/2025 7:59 PM [facility] eGFR (mL/min/1.73m2) 103 >=60 mL/min/1. 73m2 03/27/2025 7:59 PM [facility] Albumin 3.8 3.5 - 5.0 g/dL 03/27/2025 7:59 PM [facility] Alkaline Phosphatase 53 40 - 150 U/L 03/27/2025 7:59 PM [facility] ALT 11 <=34 U/L 03/27/2025 7:59 PM [facility] Comment: ALT2 reagent used for testing does not contain P5P supplementation and therefore may miss ALT elevations in patients with B6 deficiency. This population may be as high as 10% in the [place], with risk factors including malabsorption, drug interactions, and alcoholic hepatitis. AST 21 11 - 34 U/L 03/27/2025 7:59 PM [facility] Comment: AST2 reagent used for testing does not contain P5P supplementation and therefore may miss AST elevations in patients with B6 deficiency. This population may be as high as 10% in the [place], with risk factors including malabsorption, drug interactions, and alcoholic hepatitis. Total Bilirubin 0.3 0.2 - 1.2 mg/dL 03/27/2025 7:59 PM [facility] Protein, Total 7.4 6.4 - 8.3 g/dL 03/27/2025 7:59 PM [facility] Globulin 3.6 2.5 - 4.1 g/dL 03/27/2025 7:59 PM EDT [facility] Anion Gap 11 4 - 12 03/27/2025 7:59 PM EDT [facility] A/G Ratio 1.1 0.7 - 1.9 03/27/2025 7:59 PM EDT [facility] Osmolality Calc 281.9 mOsm/kg 7:59 PM EDT [facility] Blood Venipuncture / Unknown 03/27/2025 7:34 PM EDT 03/27/2025 7:35 PM EDT us Sylvia Dominguez APRN LAB BLOOD ORDERABLES Final Res ult [facility] [address] [phone] * ECG 12 lead (03/27/2025 7:29 PM EDT) VENTRICULAR RATE EKG/MIN 80 BPM GE MUSE ATRIAL RATE (MCT) 85 BPM GE MUSE MD Interval 106 ms GE MUSE QRS-INTERVAL (MSEC) 76 ms GE MUSE QT Interval 370 ms GE MUSE QTC Interval 426 ms GE MUSE P Amanda 29 degrees GE MUSE R AXIS (MCT) 68 degrees GE MUSE T Wave Amanda 61 degrees GE MUSE [place] Diagnosis Age and gender specific ECG analysis Sinus rhythm with sinus arrhythmia with short MD Otherwise normal ECG No previous ECGs available Confirmed by BRIAN VITALE M.D. ([id number]) on 03/28/2025 7:38:00 PM GE MUSE 03/27/2025 7:29 PM EDT 03/28/2025 7:38 PM EDT us Sylvia Dominguez APRN ECG ORDERABLES Final Result [facility] MUSE * EKG-SCANNED (03/27/2025) Narrative 03/27/2025 Ordered by an unspecified provider. us Default Scanning Provider SCAN ORDERS Final Result from Last 3 Months [place] [address] [place] [phone] BLUE CROSS/BLUE SHIELD Care Teams Vessel Captain Relationship Specialty Start Date End Date TacoyvonneGarrison [address] [place] [address] PCP - General 03/27/25
--- OUTSIDE RECORDS SUMMARY | 2025-04-09 15:03 | XMS_ITS ---
[...] ingredients 1 MG Oral Tablet) } Pack [id number]:00:00.000+00 :00 - Completed bupropion hydrochloride 75 M G Oral Tablet [id number]:00:00.000+00 :00 - Completed cephalexin 500 MG Oral Capsule [id number]:00:00.000+00 :00 - Completed bupropion hydrochloride 75 M G Oral Tablet [id number]:00:00.000+00 :00 - Completed 0.5 ML semaglutide 0.5 MG/ML Auto-Injector [[employer]] [id number]:00:00.000+00 :00 - Completed 1 ML medroxyprogesterone silvino powell 150 MG/ML Injection [id number]:00:00.000+00 :00 - Completed bupropion hydrochloride 75 M G Oral Tablet [id number]:00:00.000+00 :00 - Completed bupropion hydrochloride 75 M G Oral Tablet [id number]:00:00.000+00 :00 - Completed bupropion hydrochloride 75 M G Oral Tablet [id number]:00:00.000+00 :00 - Completed 0.5 ML semaglutide 1 MG/ML Auto-Injector [[employer]] [id number]:00:00.000+00 :00 - Completed 0.5 ML semaglutide 2 MG/ML Auto-Injector [[employer]] [id number]:00:00.000+00 :00 - Completed 0.5 ML semaglutide 2 MG/ML Auto-Injector [[employer]] [id number]:00:00.000+00 :00 - Completed escitalopram 5 MG Oral Tablet 08-12-27T:00:00.000+00 :00 - Completed acetaminophen 325 MG / oxyco done hydrochloride 5 MG Oral Tablet [id number]:00:00.000 +00 :00 - Completed Patient Care team information Name Category Status Period Participants - - Proposed period not known -
--- OUTSIDE RECORDS SUMMARY | 2025-04-09 15:03 | XMS_ITS | Data Portability ---
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 She would like to move forward with a prescription of zepbound. efryman Not available 03/17/2025 10:11:37 03/27/2025 03/27/2025 -Medications were reviewed and any necessary updates and renewals were made, patient instructed to complete as prescribed. -The potential side effects of medications were discussed. -Counseling was done on care goals and ways to prevent future hospitalization s. -Further treatment per orders listed below. chelsey Not available 03/27/2025 15:46:32 Plan of Treatment Reminders Order Date Submit Date Provider Last Modified By Organization Details Last Modified Time Details Appointments None recorded. Lab urinalysis , dipstick 2024 025 [facility], [address], [place], [address], 15:55:53 iron + TIBC + ferritin, serum 2024 025 [facility], [address], [address], [place], [address], 09:13:16 sjogren antibody panel (ssa, ssb, ro, la), serum 2024 025 [facility], [address], [place] [address], [place], [address], 5 09:13:18 ESR (erythrocy te sedimentat ion rate), blood 2024 025 [facility], [address], [place], [place], [address], 5 09:13:19 TSH + free T4, serum 2024 025 [facility], [address], [place], [place], [address], 5 09:13:17 CMP, serum or plasma 2024 025 [facility], [address], [place], [place], [address], 5 09:13:15 CBC w/ auto diff 2024 025 [facility], [address], [place], [place], [address], 5 09:13:17 testostero ne, total, serum 2024 025 [facility], [address], [place], [place], [address], 5 09:13:15 dhea-sulfa te, serum 2024 025 [facility], [address], [place], [place], [address], 5 09:13:17 zinc, serum or plasma 2024 025 [facility], [address], [place], [place], [address], 5 09:13:15 cortisol, am, serum 2024 025 [facility], [address], [place], [place], [address], 5 09:13:18 magnesium, serum or plasma 2024 025 [facility], [address], [place], [place], [address], 5 09:13:16 cobalamin and folate panel, serum 2024 025 [facility], [address], [place], [place], [address], 5 09:13:17 HbA1c (hemoglobi n A1c), blood 2024 025 [facility], [address], [place], [place], [address], 5 09:13:17 methylmalo ihsan, QN, serum or plasma 2024 025 [facility], [address], [place], [place], [address], 5 09:13:16 vitamin B12, serum 2024 025 [facility], [address], [place], [place], [address], 5 09:13:18 glucose, fingerstic k, blood 2024 025 [facility], [address], [place], [address], 5 15:45:12 lipid panel, serum 2024 025 [facility], [address], [place], [place], [address], 5 14:08:16 TSH + free T4, serum 2024 025 [facility], [address], [place], [place], [address], 5 14:08:14 insulin, serum 2024 025 [facility], [address], [place], [place], [address], 5 14:08:19 CBC w/ auto diff 2024 025 [facility], [address], [place], [place], [address], 5 14:08:14 CMP, serum or plasma 2024 025 [facility], [address], [place], [place], [address], 5 14:08:15 erythrocyt e sedimentat ion rate by westergren method 2024 025 [facility], [address], [place], [place], [address], 5 14:08:18 rf (rheumatoi d factor), serum 20[facility], [address], [place], [place], [address], 5 18:43:59 cobalamin and folate panel, serum 2024 025 [facility], [address], [place], [place], [address], 5 14:08:16 WANDER + rf (antinucle ar antibodies + rheumatoid factor), quantitati ve, serum 2024 025 [facility], [address], [place], [place], [address], 5 14:08:17 magnesium, serum or plasma 2024 025 [facility], [address], [place], [place], [address], 5 14:08:19 vitamin D, 25-hydroxy , total, serum 2024 025 [facility], [address], [place], [place], [address], 5 14:08:17 rapid strep group A, throat 2023 024 [facility], [address] [place] [address], [address], 4 10:39:02 rapid flu (A+B) 2023 024 [facility], [address] [place] [address], [address], 4 10:39:02 rapid SARS CoV + SARS CoV 2 Ag, QL IA, respirator y specimen 2023 024 [facility], [address] [place] [address], [address], 4 10:39:02 Referral lymphedema consult 2024 025 [facility], [address], [place], [address], 5 16:40:14 Procedures None recorded. Surgeries None recorded. Imaging electrocar diogram 2024 025 [facility], [address] [place] [address], [address], 5 15:45:12 Medication Orders citalopram 10 mg tablet 2024 025 [facility], [address], [place], [address], 5 16:24:05 Zepbound 2.5 mg/0.5 mL subcutaneo us pen injector 2024 0[facility], [address] [place] [address], [place], [address], 5 08:40:25 bupropion HCl 75 mg tablet 2023 024 [facility], [address] [place] [address], [address], 09:47:02 Patient TargetsNo targets recorded. Patient Instructions Encounter Date Encounter Id Patient Instructions Last Modified By Organization Details Last Modified Time 09/30/2024 [id number] sore throat in children: care instructions efryman Not available 09/30/2024 10:39:02 learning about healthy weight efryman Not available 09/30/2024 10:39:02 body mass index: care instructions efryman Not available 09/30/2024 10:39:02 learning about healthy weight efryman Not available 09/30/2024 10:39:02 body mass index: care instructions efryman Not available 09/30/2024 10:39:02 03/17/2025 [id number] Treament Plan: Patient will start medication as directed. Patient will continue exercise, watch calorie intake, and follow up for weight check in 1 month. [email or web address] Not available 03/17/2025 09:32:55 Reason for Referral Lymphedema Consult for Liped john Referring Physician: Liam Orozco, Family Medicine, Encounter Date: 03/17/2025 Results Created Date Observation Date Name Description Value Unit Range Abnormal Flag Note LastModifiedBy Organization Detail LastModifiedTime 09/30/20 24 09/30/2024 rapid SARS CoV + SARS CoV 2 Ag, QL IA, respi rator y speci men SARS CoV antigen Negati ve Not Available [address] [place], [address], 09/30/2024 08:56:40 09/30/20 24 09/30/2024 rapid flu (A+B) Flu negati ve Not Available [address], [address], 09/30/2024 08:56:27 09/30/20 24 09/30/2024 rapid flu (A+B) Type Both A & B Not Available [address], [address], 09/30/2024 08:56:27 09/30/20 24 09/30/2024 rapid strep group A, throa t Strep negati ve Not Available [address], [address], 09/30/2024 08:24:29 09/30/20 24 09/30/2024 rapid strep group A, throa t Culture No Not Available [address], [address], 09/30/2024 08:24:29 03/17/20 25 03/18/2025 TSH+F REE T4 TSH 2.110 uIU/m L 0.450- 4.500 normal Not Available [facility] ([facility]) [address], [place], [address], 03/19/2025 14:08:14 03/17/20 25 03/18/2025 TSH+F REE T4 T4,free(dire ct) 1.17 NG/dL 0.82-1 .77 normal Not Available [facility] ([facility]) [address] [facility], [place], [address], 03/19/2025 14:08:14 03/17/20 25 03/18/2025 CBC WITH DIFFE RENTI AL/PL ATELE T WBC 4.4 x10e3 /uL 3.4-10 .8 normal Not Available [facility] ([facility]) [address] [place], [address], 03/19/2025 14:08:14 03/17/20 25 03/18/2025 CBC WITH DIFFE RENTI AL/PL ATELE T RBC 4.94 x10e6 /uL 3.77-5 .28 normal Not Available [facility] ([facility]) [address] [place], [address], 03/19/2025 14:08:14 03/17/20 25 03/18/2025 CBC WITH DIFFE RENTI AL/PL ATELE T hemoglobin 13.9 g/dL 11.1-1 5.9 normal Not Available [facility] ([facility]) [address] [place], [address], 03/19/2025 14:08:14 03/17/20 25 03/18/2025 CBC WITH DIFFE RENTI AL/PL ATELE T hematocrit 45.6 % 34.0-4 6.6 normal Not Available [facility] ([facility]) [address] [place], [address], 03/19/2025 14:08:14 03/17/20 25 03/18/2025 CBC WITH DIFFE RENTI AL/PL ATELE T MCV 92 fL 79-97 normal Not Available [facility] ([facility]) [address] [place], [address], 03/19/2025 14:08:14 03/17/20 25 03/18/2025 CBC WITH DIFFE RENTI AL/PL ATELE T MCH 28.1 pg 26.6-3 3.0 normal Not Available [facility] ([facility]) [address] [place], [address], 03/19/2025 14:08:14 03/17/20 25 03/18/2025 CBC WITH DIFFE RENTI AL/PL ATELE T MCHC 30.5 g/dL 31.5-3 5.7 below low normal Not Available [facility] ([facility]) [address] [place], [address], 03/19/2025 14:08:14 03/17/20 25 03/18/2025 CBC WITH DIFFE RENTI AL/PL ATELE T RDW 12.9 % 11.7-1 5.4 Not Available [facility] ([facility]) [address] [facility] [address], [place], [address], 03/19/2025 14:08:14 03/17/20 25 03/18/2025 CBC WITH DIFFE RENTI AL/PL ATELE T platelets 304 x10e3 /uL 150-45 0 normal Not Available [facility] ([facility]) [address] [facility] [address], [place], [address], 03/19/2025 14:08:14 03/17/20 25 03/18/2025 CBC WITH DIFFE RENTI AL/PL ATELE T neutrophils 53 % not estab. normal Not Available [facility] ([facility]) [address] [facility] [address], [place], [address], 03/19/2025 14:08:14 03/17/20 25 03/18/2025 CBC WITH DIFFE RENTI AL/PL ATELE T lymphs 34 % not estab. normal Not Available [facility] ([facility]) [address] [place], [address], 03/19/2025 14:08:14 03/17/20 25 03/18/2025 CBC WITH DIFFE RENTI AL/PL ATELE T monocytes 9 % not estab. normal Not Available [facility] ([facility]) [address] [facility] [address], [place], [address], 03/19/2025 14:08:14 03/17/20 25 03/18/2025 CBC WITH DIFFE RENTI AL/PL ATELE T eos 3 % not estab. normal Not Available [facility] ([facility]) [address] [place], [address], 03/19/2025 14:08:14 03/17/20 25 03/18/2025 CBC WITH DIFFE RENTI AL/PL ATELE T basos 1 % not estab. normal Not Available [facility] ([facility]) [address] [facility] [address], [place], [address], 03/19/2025 14:08:14 03/17/20 25 03/18/2025 CBC WITH DIFFE RENTI AL/PL ATELE T immature cells ORCHID GROWER Not Available [facility]) [address] [place], [address], 03/19/2025 14:08:14 03/17/20 25 03/18/2025 CBC WITH DIFFE RENTI AL/PL ATELE T neutrophils (absolute) 2.3 x10e3 /uL 1.4-7. 0 normal Not Available [facility] ([facility]) [address] [place], [address], 03/19/2025 14:08:14 03/17/20 25 03/18/2025 CBC WITH DIFFE RENTI AL/PL ATELE T lymphs (absolute) 1.5 x10e3 /uL 0.7-3. 1 normal Not Available [facility] ([facility]) [address] [place], [address], 03/19/2025 14:08:14 03/17/20 25 03/18/2025 CBC WITH DIFFE RENTI AL/PL ATELE T monocytes(ab solute) 0.4 x10e3 /uL 0.1-0. 9 normal Not Available [facility] ([facility]) [address] [place], [address], 03/19/2025 14:08:14 03/17/20 25 03/18/2025 CBC WITH DIFFE RENTI AL/PL ATELE T eos (absolute) 0.2 x10e3 /uL 0.0-0. 4 normal Not Available [facility] ([facility]) [address] [facility] [address], [place], [address], 03/19/2025 14:08:14 03/17/20 25 03/18/2025 CBC WITH DIFFE RENTI AL/PL ATELE T baso (absolute) 0.0 x10e3 /uL 0.0-0. 2 normal Not Available [facility] ([facility]) [address] [facility] [address], [place], [address], 03/19/2025 14:08:14 03/17/20 25 03/18/2025 CBC WITH DIFFE RENTI AL/PL ATELE T immature granulocytes 0 % not estab. Not Available [facility] ([facility]) [address] [facility] [address], [place], [address], 03/19/2025 14:08:14 03/17/20 25 03/18/2025 CBC WITH DIFFE RENTI AL/PL ATELE T immature grans (abs) 0.0 x10e3 /uL 0.0-0. 1 Not Available [facility] ([facility]) [address] [place], [address], 03/19/2025 14:08:14 03/17/20 25 03/18/2025 CBC WITH DIFFE RENTI AL/PL ATELE T NRBC ORCHID GROWER Not Available [facility] ([facility]) [address] [place], [address], 03/19/2025 14:08:14 03/17/20 25 03/18/2025 CBC WITH DIFFE RENTI AL/PL ATELE T hematology comments: ORCHID GROWER Not Available [facility] ([facility]) [address] [place], [address], 03/19/2025 14:08:14 03/17/20 25 03/18/2025 COMP. METAB OLIC PANEL (14) glucose 90 mg/dL 70-99 normal Not Available [facility] ([facility]) [address], [place], [address], 03/19/2025 14:08:15 03/17/20 25 03/18/2025 COMP. METAB OLIC PANEL (14) BUN 15 mg/dL 6-20 normal Not Available [facility] ([facility]) [address], [place], [address], 03/19/2025 14:08:15 03/17/20 25 03/18/2025 COMP. METAB OLIC PANEL (14) creatinine 0.78 mg/dL 0.57-1 .00 normal Not Available [facility] ([facility]) [address] [place], [address], 03/19/2025 14:08:15 03/17/20 25 03/18/2025 COMP. METAB OLIC PANEL (14) eGFR 100 mL/mi n/1.7 3 >59 normal Not Available [facility] ([facility]) [address], [place], [address], 03/19/2025 14:08:15 03/17/20 25 03/18/2025 COMP. METAB OLIC PANEL (14) BUN/creatini ne ratio 19 9-23 normal Not Available [facility]) [address] [facility] [place], [address], 03/19/2025 14:08:15 03/17/20 25 03/18/2025 COMP. METAB OLIC PANEL (14) sodium 140 mmol/ L 134-14 4 normal Not Available [facility] ([facility]) [address] [facility] [place], [address], 03/19/2025 14:08:15 03/17/20 25 03/18/2025 COMP. METAB OLIC PANEL (14) potassium 4.3 mmol/ L 3.5-5. 2 normal Not Available [facility] ([facility]) [address] [facility] [place], [address], 03/19/2025 14:08:15 03/17/20 25 03/18/2025 COMP. METAB OLIC PANEL (14) chloride 104 mmol/ L 96-106 normal Not Available [facility] ([facility]) [address] [place], [address], 03/19/2025 14:08:15 03/17/20 25 03/18/2025 COMP. METAB OLIC PANEL (14) carbon dioxide, total 23 mmol/ L 20-29 normal Not Available [facility] ([facility] [address] [facility] [place], [address], 03/19/2025 14:08:15 03/17/20 25 03/18/2025 COMP. METAB OLIC PANEL (14) calcium 9.3 mg/dL 8.7-10 .2 normal Not Available [facility] ([facility]) [address] [facility] [place], [address], 03/19/2025 14:08:15 03/17/20 25 03/18/2025 COMP. METAB OLIC PANEL (14) protein, total 7.2 g/dL 6.0-8. 5 normal Not Available [facility] ([facility]) [address] [facility] [place], [address], 03/19/2025 14:08:15 03/17/20 25 03/18/2025 COMP. METAB OLIC PANEL (14) albumin 4.5 g/dL 3.9-4. 9 normal Not Available [facility] ([facility]) [address] [facility] [place], [address], 03/19/2025 14:08:15 03/17/20 25 03/18/2025 COMP. METAB OLIC PANEL (14) globulin, total 2.7 g/dL 1.5-4. 5 Not Available [facility] ([facility]) [address] [facility] [place], [address], 03/19/2025 14:08:15 03/17/20 25 03/18/2025 COMP. METAB OLIC PANEL (14) bilirubin, total 0.3 mg/dL 0.0-1. 2 normal Not Available [facility] ([facility]) [address] [place], [address], 03/19/2025 14:08:15 03/17/20 25 03/18/2025 COMP. METAB OLIC PANEL (14) alkaline phosphatase 63 IU/L 44-121 normal Not Available [facility]) [address] [place], [address], 03/19/2025 14:08:15 03/17/20 25 03/18/2025 COMP. METAB OLIC PANEL (14) AST (SGOT) 16 IU/L 0-40 normal Not Available [facility] ([facility]) [address] [place], [address], 03/19/2025 14:08:15 03/17/20 25 03/18/2025 COMP. METAB OLIC PANEL (14) ALT (SGPT) 14 IU/L 0-32 normal Not Available [facility] ([facility]) [address] [place], [address], 03/19/2025 14:08:15 03/17/20 25 03/18/2025 LIPID PANEL cholesterol, total 139 mg/dL 100-19 9 normal Not Available [facility] ([facility]) [address] [place], [address], 03/19/2025 14:08:16 03/17/20 25 03/18/2025 LIPID PANEL triglyceride s 33 mg/dL 0-149 normal Not Available [facility]) [address] [place], [address], 03/19/2025 14:08:16 03/17/20 25 03/18/2025 LIPID PANEL HDL cholesterol 65 mg/dL >39 normal Not Available [facility]) [address] [facility] [place], [address], 03/19/2025 14:08:16 03/17/20 25 03/18/2025 LIPID PANEL VLDL cholesterol nataly 9 mg/dL 5-40 Not Available [facility]) [address] [facility] [place], [address], 03/19/2025 14:08:16 03/17/20 25 03/18/2025 LIPID PANEL LDL chol calc ([facility]) 65 mg/dL 0-99 Not Available [facility] [address] [facility] [place], [address], 03/19/2025 14:08:16 03/17/20 25 03/18/2025 LIPID PANEL LDL calc comment: ORCHID GROWER Not Available [facility]) [address] [place], [address], 03/19/2025 14:08:16 03/17/20 25 03/18/2025 VITAM IN B12 AND FOLAT E vitamin B12 542 pg/mL 232-12 45 normal Not Available [facility] ([facility]) [address] [place], [address], 03/19/2025 14:08:16 03/17/20 25 03/18/2025 VITAM IN B12 AND FOLAT E folate (folic acid), serum 6.8 NG/mL >3.0 normal A serum folat e jose cruz ntrat ion of less than 3.1 ng/mL is consi dered to repre sent clini nataly defic iency . Not Available [facility] ([facility]) [address] [place], [address], 03/19/2025 14:08:16 03/17/20 25 03/18/2025 WANDER+R F QN rheumatoid factor (rf) <10.0 IU/mL <14.0 Not Available [facility] [address] [place], [address], 03/19/2025 14:08:17 03/17/20 25 03/19/2025 WANDER+R F QN WANDER direct Positi ve negati ve abnormal Not Available [facility] ([facility]) [address] [facility] [address], [place], [address], 03/19/2025 14:08:17 03/17/20 25 03/18/2025 VITAM IN D, 25-HY DROXY vitamin D, 25-hydroxy 45.6 NG/mL 30.0-1 00.0 Vitam in D defic iency has been defin ed by the [facility]i [facility] in[facility] and an Endoc rine Socie ty [...] um and D. Yanet meyer [place]: [facility] . 2. Janee pelaez MF, Stanislav hopson [place], Flori off-F errar i SR, et al. Evalu ation , treat ment, and preve ntion of vitam in D defic iency : an Endoc rine Socie ty clini nataly pract ice guide line. JCEM. 2010; 96(7) :1911 -30. Not Available [facility] ([facility]) [address] [facility] [address], [place], [address], 03/19/2025 14:08:17 03/17/2003/18/2025 SEDIM ENTAT ION RATE- WESTE RGREN sedimentatio n rate-westerg tal 17 mm/HR 0-32 normal Not Available [facility]) [address] [facility] [address], [place], [address], 03/19/2025 14:08:18 06/02/20 25 03/18/2025 MAGNE SIUM magnesium 1.9 mg/dL 1.6-2. 3 normal Not Available [facility] ([facility]) [address] [facility], [place], [address], 03/19/2025 14:08:19 03/17/20 25 03/18/2025 INSUL IN insulin 8.4 uIU/m L 2.6-24 .9 normal Not Available [facility] ([facility]) [address] [facility], [place], [address], 03/19/2025 14:08:19 03/27/20 25 03/27/2025 gluco se, finge rstic k, blood Blood Glucose: mg/dl 106 Not Available [address], [address], 03/27/2025 17:16:52 03/27/20 25 03/27/2025 gluco se, finge rstic k, blood Reference Range (60-100) abnorm al Not Available [address], [address], 03/27/2025 17:16:52 04/07/20 25 04/07/2025 urina lysis , dipst ick Leukocytes Negati ve Not Available [address], [address], 04/07/2025 10:51:52 04/07/20 25 04/07/2025 urina lysis , dipst ick Nitrite negati ve Not Available [address], [address], 04/07/2025 10:51:52 04/07/20 25 04/07/2025 urina lysis , dipst ick Urobilinogen .2 Not Available Atilio martines [address], [address], 04/07/2025 10:51:52 04/07/20 25 04/07/2025 urina lysis , dipst ick Protein Negati ve Not Available [address], [address], 04/07/2025 10:51:52 04/07/20 25 04/07/2025 urina lysis , dipst ick pH 6.0 Not Available [address], [address], 04/07/2025 10:51:52 04/07/20 25 04/07/2025 urina lysis , dipst ick Blood Negati ve Not Available [address], [address], 04/07/2025 10:51:52 04/07/20 25 04/07/2025 urina lysis , dipst ick Specific Scott 1.030 Not Available [address], [address], 04/07/2025 10:51:52 04/07/20 25 04/07/2025 urina lysis , dipst ick Ketone Negati ve Not Available [address], [address], 04/07/2025 10:51:52 04/07/20 25 04/07/2025 urina lysis , dipst ick Bilirubin Negati ve Not Available [address], [address], 04/07/2025 10:51:52 04/07/20 25 04/07/2025 urina lysis , dipst ick Glucose Negati ve Not Available [address], [address], 04/07/2025 10:51:52 04/07/20 25 04/07/2025 urina lysis , dipst ick Appearance Clear Not Available [address], [address], 04/07/2025 10:51:52 04/07/20 25 04/07/2025 urina lysis , dipst ick Color Yellow Not Available [address], [address], 04/07/2025 10:51:52 03/27/20 25 03/26/2025 elect rocar diogr am No observ ation record ed. [place] [id number], [place], [address], 03/27/2025 09:31:10 03/27/20 25 03/26/2025 elect rocar diogr am No observ ation record ed. [facility] [address], [place], [address], 03/27/2025 09:31:10 03/27/20 25 03/28/2025 elect rocar diogr am No observ ation record ed. [address], [address], 03/28/2025 08:10:58 03/27/20 25 03/27/2025 elect rocar diogr am No observ ation record ed. [facility] [address], [place], [address], 03/28/2025 08:09:22 03/31/20 25 03/27/2025 elect rocar diogr am No observ ation record ed. [email or web address], [address], 04/01/2025 16:32:41 Result Notes None recorded. Problems Name Problem SNOMED Code Status Onset Date Resolution Date Notes Provider Name and Address Organization Details Recorded Time Anxiety 65252975 Active 022 Liam Orozco, [employer] [address], [place], [address], [facility] - [facility] 2 11:51:10 Depressive disorder 97870965 Active 022 Liam Orozco, [employer] [address], [place], [address], [facility] - [facility] 2 11:51:25 Obesity 057210958 Active 023 Liam Orozco, [employer] [address], [place], [address], [facility] - [facility] 3 16:36:41 Problem Notes None recorded. Procedures Surgical History Date Name Laterality Status Provider Name and Address Organization Details Recorded Time 03/27/20 25 Medication Reconcilliation completed Shannan James [place] - [facility] 03/27/2025 15:46:32 Imaging Results None recorded. Procedure Notes None recorded. Medical Equipment None Reported. Allergies Allergen ID Allergen Name Allergen Category Reaction Reaction Severity Criticality Documentation Date Start Date Code Code System Note Provider Name and Address Organization Details Recorded Time 92715 Substance with sulfonami de structure and antibacte rial mechanism of action (substanc e) medicatio n vomiting Not available Not available 07/22/20162007 20093 8003 SNOMED React ion: Nause a/vom iting ; Comme nt: Sulfo namid es; Not Available [facility] 6 09:27:28 Medications Name Sig Start [...] tablets in a dose pack TAKE ACCORDIN Lesa TO PACKAGE INSTRUCT IONS --TAKE WITH FOOD-- [...] Updated DateTime 5 162.56 cm 31.2 kg/m2 48846.0 2 g 58 /min 99 % 99 [...] Updated DateTime 5 162.56 cm 31.9 kg/m2 04164.1 8 g 76 /min 100 % 100 [...] Shannan James [place] - [facility] 5 16:00:53 Date Recorded Body height Body mass index (BMI) Body weight Heart rate Oxygen saturation Oxygen saturation in Arterial blood by Pulse oximetry Respiratory rate Systolic blood pressure Diastolic blood pressure Provider Name and Address Organization Details Last Updated DateTime 5 162.56 cm 30.7 kg/m2 49040.0 3 g 60 /min 100 % 100 % 18 /min 136 mm[Hg] 82 mm[Hg] Shannan James [place] - [facility] 5 08:38:48 Date Recorded Body weight Heart rate Oxygen saturation Oxygen saturation in Arterial blood by Pulse oximetry Respiratory rate Body mass index (BMI) Body height Systolic blood pressure Diastolic blood pressure Provider Name and Address Organization Details Last Updated DateTime 4 71192.8 1 g 57 /min 97 % 97 [...] Or The Highest Degree You Have Received? [id number] Information not available 07/22/2022 Have There Been [...] Do You Have A Medical Power Of Network Contract Manager? 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 [id number] Information not available 07/22/2022 Do you have [...] colitis N Cerebrovascular Disease N Depression N Guillain-[place] N Sleep Apnea N Aneurysm N Bronchitis [...] or 50 mcg/0.25mL dose 2 completed Shannan Sousaler null, [place] - [facility] 08/02/2022 14:41:49 COVID-19, mRNA, LNP-S, PF, 100 mcg/0.5mL dose or 50 mcg/0.25mL dose 1 completed Shannan James null, [place] - [facility] 08/02/2022 14:41:49 Hep B, adolescent or pediatric 3 completed Shannan Jacob null, [place] - [facility] 08/02/2022 14:41:49 Past Encounters Encounter ID Performer Location Encounter Start Date Encounter Closed Date Diagnosis/Indication Diagnosis SNOMED-CT Code Diagnosis ICD10 Code Diagnosis Note [id number] [facility] [address] [place] [address] 11/08/2005 00:00:00 [id number] [facility] [address] [place] [address] 12/12/2005 00:00:00 [id number] [facility] [address] [place] [address] 12/26/2006 00:00:00 [id number] [facility] [address] [place] [address] 11/09/2007 00:00:00 [id number] [facility] [address] [place] [address] 05/01/2008 00:00:00 [id number] [facility] [address] [place] [address] 06/16/2006 00:00:00 [id number] Liam Orozco [address] [address] 07/22/2022 11:09:56 07/22/2022 12:11:05 Contraception care management 503168703 Z30.9 Anxiety 46264606 F41.9 Depressive disorder 3548 9007 F32.A Body mass index 30+ - obesity 934005596 Z68.34 Fatigue 58436485 R53.83 [id number] Liam Orozco [address] [address] 07/26/2022 14:10:26 07/26/2022 14:58:13 Anxiety 12760961 F41.9 Patient identified triggers for anxiety and impact of anxious thinking on functionin g. Discussed strategies to regulate symptoms and need for compliance with treatment. Depressive disorder 3540 9007 F32.A At this time patient is symptomati c; symptoms are stable. Patient denies suicidal or homicidal ideation. Plan to change medication . Plan to re-evaluat e patient at follow up; patient also referred to counseling services and community resources. Patient was advised to call or come in if symptoms worsen. Patient verbalized understand ing. [id number] Liam Orozco CAMPUS RECRUITING COORDINATOR [address] [address] 08/02/2022 14:18:17 08/02/2022 14:38:01 Uses depot contraception 738523179 Z30.013 Influenza vaccine needed 2293812236 106 Z23 [id number] Liam Elizabethclint[address] [address] 08/11/2022 10:38:33 08/11/2022 11:44:24 Acute maxillary sinusitis 32648906 J01.[id number] [facility] [address]clint[address] [address] 08/25/2022 13:37:09 08/25/2022 14:27:02 Body mass index 30+ - obesity 243773150 Z68.39 Pt compliant with plan of careAndrea reviewedme dication compliance discussedL ast uds:Control substance agreement on file Obesity 895164297 E66.3 continue a low fat/calori e/carb dietstart a exercise plan exercise 30 mins a day 3 x a week Long-term drug therapy 925963075 Z79.560 [id number] [facility] Elizabethpeteyvonne[address] [address] 09/06/2022 09:39:24 09/06/2022 10:16:02 COVID-19 530851665 U07.1 no sign of a bacterial infection. [...] improvemen t over the next 48-72 hours [id number] Shabanajordon Orozco [address] [address] 09/29/2022 09:21:02 09/29/2022 09:54:31 Body mass index 30+ - obesity 057043704 Z68.39 Pt compliant with plan of careKasper reviewedme dication compliance discussedL ast uds:Control substance agreement on file Anxiety 31202351 F41.9 Patient identified triggers for anxiety and impact of anxious thinking on functionin g. Discussed strategies to regulate symptoms and need for compliance with treatment. [id number] Liam Orozco [address] [address] 10/27/2022 15:38:43 10/27/2022 16:05:36 Depressive disorder 36722638 F32.A Anxiety 67639088 F41.9 Patient identified triggers for anxiety and impact of anxious thinking on functionin g. Discussed strategies to regulate symptoms and need for compliance with treatment. Obesity 887266129 E66.3 continue a low fat/calori e/carb dietstart a exercise plan exercise 30 mins a day 3 x a week Body mass index 30+ - obesity 304197754 Z68.39 Pt compliant with plan of careKasper reviewedme dication compliance discussedL ast uds:Control substance agreement on filenext month will go off med for a drug holiday while watching diet and exercising . [id number] Liam Orozco [address] [address] 12/12/2022 14:00:25 12/12/2022 15:32:42 Anxiety 85656763 F41.9 Patient identified triggers for anxiety and impact of anxious thinking on functionin g. Discussed strategies to regulate symptoms and need for compliance with treatment. medication discussed with pt- start low dose recheck in 2 weeks and increase dose if needed Family genaro nning education 593224899 Z30.02 Depressive disorder 3548 9007 F32.A [id number] Liam Orozco [address] [address] 01/26/2023 11:44:07 01/26/2023 12:05:07 Obesity 328301155 E66.3 continue a low fat/calori e/carb dietstart a exercise plan exercise 30 mins a day 3 x a week Body mass index 30+ - obesity 945969353 Z68.38 medication discussed with pt [id number] Shabanajordon Orozco [address] [address] 07/27/2023 15:25:31 07/27/2023 16:55:55 Influenza vaccine needed 6598779438 106 Z23 [id number] Shabanajordon Orozco [address] [address] 09/30/2024 08:03:09 09/30/2024 09:16:01 Pharyngitis 421020645 J02.9 tylenol or motrin as neededincr ease fluids- if worsen or no improvemen t return Anxiety 62700286 F41.9 Patient identified triggers for anxiety and impact of anxious thinking on functionin g. Discussed strategies to regulate symptoms and need for compliance with treatment. medication discussed with pt- start low dose recheck in 2 weeks and increase dose if needed Body mass index 30+ - obesity 320368133 Z68.31 31.2 Obesity 567719828 E66.9 continue a low fat/calori e/carb dietexerci se plan exercise 30 mins a day 3 x a week [id number] Matteoraissa clint [address] [address] 03/17/2025 09:18:04 03/17/2025 10:21:17 Obesity 869719321 E66.9 continue a low fat/calori e/carb dietexerci se plan exercise 30 mins a day 3 x a week Lipedema 986978729 R60.9 Fatigue 81240264 R53.83 [id number] Liam Elizabethclint [address] [address] 03/27/2025 15:46:00 03/27/2025 17:22:44 Intermittent palpitations 369803624 R00.2 while in office pt c/o of [...] at bedisde at all times Sinus tachycardia 913037 01 R00.0 [id number] Liam Orozco APRN [address] [address] 03/28/2025 15:42:06 03/28/2025 16:10:06 Anxiety 61759698 F41.9 Patient identified triggers for anxiety and impact of anxious thinking on functionin g. Discussed strategies to regulate symptoms and need for compliance with treatment. medication discussed with pt- recheck in 2 weeks and increase dose if needed, low dose started [id number] Liam Orozco APRN [address] [address] 04/07/2025 08:06:24 04/07/2025 10:02:55 [place] 811225887 R23.2 labs Paresthesia 87195625 R20 .2 labs Xerostomia 32214103 R68. 2 labs Tachycardia 0819227 R00. 0 labs Acute urin sasha tract infection 553075987 N39.0 continue meds Health Concerns Section Related Observation LastModified by Organization Detai ls LastModified Time None Recorded Concern Status LastModified by Organization Details LastModified Time None Recorded Advance Directives Directive N: Payers Insurance Date Sequence Insurance Name Policy Number Policy Carlton Covered Member ID Carlton Member ID Guarantor Name 04/07/2025 1 [place] [id number] 4 Chloe N Shellman [id number] Chloe [place] Notes Date Note Type Note Provider Name and Address Organization Details Recorded Time 09/30/2024 text/html 39 yr old female presents for sore throat and increase in anxiety. pt states she has been very flores and gets agitated easy. pt states she is eating more than usual because she just dont want to do anything. no si or hi Liam Orozco APRN [address], [place], [address], [place] - [facility] 09/30/2024 10:39:33 03/17/2025 text/html 39 year old elissa coffey who presents to the office today for a follow up onweight- would like to loose 25-30 more lbshas concerns of having possible lipidemia would like referralstates has been exercising 2 hours a day and arms and legs continue to stay big no matter what she does.feeling fatigued Shabanaharrisonraissa ElizabethSOCORRO jaramillo [address], [place], [address], [place] - [facility] 03/17/2025 10:13:31 03/27/2025 text/html Emergency Depart ment Follow-Up RecordReported bypatient.Discharge InformationName of hospital/urgent care patient was seen: ([facility] and [facility]); Patient presented to hospital/urgent care on or [...] 5 days. She reports being seen at [facility] and [facility] in the last week for these episodes. Reports heart rate from 130-170. Right leg feels restricted and reports the hospital did an US and PE study that was neg. Liam ElizabethSOCORRO jaramillo [address], [place], [address], [place] [facility] 03/28/2025 15:49:07 03/28/2025 text/html 39 yr old female presents for anxiety. pt states she was seen again last night at [facility] for palpitations and tachy and was told everything is ok. saw cardiology this am and has some test scheduled. pt states she has taken citalopram and effexor in the past and tolerated it well and they worked. would like to restart one of them Liam ElizabethSOCORRO jaramillo [address], [place], [address], [place] [facility] 03/28/2025 16:24:48 04/07/2025 text/html 39 yr old female presents for labs. She is currently being treated for a uti. She would like to have her urine checked and all blood work repeated. pt states she is having tachycardia, dry mouth,a tingling sensation, burning from the inside out from head to toes. pt has been seen in 3 ers, cardiology started on metoprolol and she is taking new anxiety med but feels the symptoms all the time, even on meds. has seen senior quality methods specialist and r/o for perimenopausal or menopause. Liam Orozco, CAMPUS RECRUITING COORDINATOR [address], [place], [address], [facility] - [facility] 04/07/2025 10:52:42 OBGyn Episode No OBEpisode recorded.
--- OUTSIDE RECORDS SUMMARY | 2025-04-09 15:03 | XMS_ITS | Continuity of Care Document ---
Author Organization [facility] Address [address] [place] [address] Care Team Providers Care Sap Grc Security Name Role Phone LIAM SALAMANCA Primary Care Provider Assessment No assessment recorded. Plan of Treatment Reminders Order Date Submit Date Provider Last Modified By Organization Details Last Modified Time Details Appointments None recorded. Lab urinalysis, dipstick 2024 025 [facility], [address] [place] [address], [place], [address], 5 15:55:53 iron + TIBC + ferritin, serum 2024 025 [facility], [address], [place], [place], [address], 5 09:13:16 sjogren antibody panel (ssa, ssb, ro, la), serum 2024 025 [facility], [address], [place], [place], [address], 5 09:13:18 ESR (erythrocyt e sedimentati on rate), blood 2024 025 [facility], [address], [place], [place], [address], 5 09:13:19 TSH + free T4, serum 2024 025 [facility], [address], [place], [place], [address], 5 09:13:17 CMP, serum or plasma 2024 025 [facility], [address], [place], [place], [address], 5 09:13:15 CBC w/ auto diff 2024 025 [facility], [address], [place], [place], [address], 5 09:13:17 testosteron e, total, serum 2024 025 [facility], [address], [place], [place], [address], 5 09:13:15 dhea-sulfat e, serum 2024 025 [facility], [address], [place], [place], [address], 5 09:13:17 zinc, serum or plasma 2024 025 [facility], [address], [place], [place], [address], 5 09:13:15 cortisol, am, serum 2024 025 [facility], [address], [place], [place], [address], 5 09:13:18 magnesium, serum or plasma 2024 025 [facility], [address], [place], [place], [address], 5 09:13:16 cobalamin and folate panel, serum 2024 025 [facility], [address], [place], [place], [address], 5 09:13:17 HbA1c (hemoglobin A1c), blood 2024 025 [facility], [address], [place], [place], [address], 5 09:13:17 methylmalon ate, QN, serum or plasma 2024 025 [facility], [address], [place], [place], [address], 5 09:13:16 vitamin B12, serum 2024 025 [facility], [address], [place], [place], [address], 5 09:13:18 Referral None recorded. Procedures None recorded. Surgeries None recorded. Imaging None recorded. Medication Orders None recorded. Patient TargetsNo targets recorded. Patient InstructionsNo instructions recorded. Reason for Referral None Reported. Results Created Date Observation Date Name Description Value Unit Range Abnormal Flag Note LastModifiedBy Organization Detail LastModifiedTime 04/07/2004/07/2025 urina lysis , dipst ick Leukocytes Negati ve Not Available [address], [address], 04/07/2025 10:51:52 04/07/20 25 04/07/2025 urina lysis , dipst ick Nitrite negati ve Not Available [address], [address], 04/07/2025 10:51:52 04/07/20 25 04/07/2025 urina lysis , dipst ick Urobilinogen .2 Not Available Atilio [address], [address], 04/07/2025 10:51:52 04/07/20 25 04/07/2025 urina lysis , dipst ick Protein Negati ve Not Available [address], [address], 04/07/2025 10:51:52 04/07/20 25 04/07/2025 urina lysis , dipst ick pH 6.0 Not Available [address], [address], 04/07/2025 10:51:52 04/07/20 25 04/07/2025 urina lysis , dipst ick Blood Negati ve Not Available [address], [address], 04/07/2025 10:51:52 04/07/20 25 04/07/2025 urina lysis , dipst ick Specific [place] 1.030 Not Available [address], [address], 04/07/2025 10:51:52 04/07/20 25 04/07/2025 urina lysis , dipst ick Ketone Negati ve Not Available [address], [address], 04/07/2025 10:51:52 04/07/20 25 04/07/2025 urina lysis , dipst ick Bilirubin Negati ve Not Available [address], [address], 04/07/2025 10:51:52 04/07/20 25 04/07/2025 urina lysis , dipst ick Glucose Negati ve Not Available [address], [address], 04/07/2025 10:51:52 04/07/20 25 04/07/2025 urina lysis , dipst ick Appearance Clear Not Available [address], [address], 04/07/2025 10:51:52 04/07/20 25 04/07/2025 urina lysis , dipst ick Color Yellow Not Available [address], [address], 04/07/2025 10:51:52 03/27/20 25 03/26/2025 elect rocar diogr am No observ ation record ed. [address], [place], [address], 03/27/2025 09:31:10 03/27/20 25 03/26/2025 elect rocar diogr am No observ ation record ed. [address], [place], [address], 03/27/2025 09:31:10 03/27/20 25 03/28/2025 elect rocar diogr am No observ ation record ed. [address], [address], 03/28/2025 08:10:58 03/27/20 25 03/27/2025 elect rocar diogr am No observ ation record ed. [address], [place], [address], 03/28/2025 08:09:22 03/31/20 25 03/27/2025 elect rocar diogr am No observ ation record ed. [email or web address] [address], [address], 04/01/2025 16:32:41 Result Notes None recorded. Problems Name Problem SNOMED Code Status Onset Date Resolution Date Notes Provider Name and Address Organization Details Recorded Time Anxiety 75012805 Active 022 Liam Salamanca, GROUP TEACHER [address], [place], [address], [facility] - [facility] 2 11:51:10 Depressive disorder 97798910 Active 022 Liam Salamanca, GROUP TEACHER [address], [place], [address], [facility] - [facility] 2 11:51:25 Obesity 331190429 Active 023 Liam Salamanca, GROUP TEACHER [address], [place], [address], [facility] - [facility] 3 16:36:41 Problem Notes None recorded. Procedures Surgical History Date Name Laterality Status Provider Name and Address Organization Details Recorded Time 03/27/20 25 Medication Reconcilliation completed Shannan James [facility] 03/27/2025 15:46:32 Imaging Results None recorded. Procedure Notes None recorded. Medical Equipment None Reported. Allergies Allergen ID Allergen Name Allergen Category Reaction Reaction Severity Criticality Documentation Date Start Date Code Code System Note Provider Name and Address Organization Details Recorded Time 74696 Substance with sulfonami de structure and antibacte rial mechanism of action (substanc e) medicatio n vomiting Not available Not available 07/22/20162007 72185 8003 SNOMED React ion: Nause a/vom iting ; Comme nt: Sulfo namid es; Not Available [facility] 09:27:28 Medications Name Sig [...] mg tablets in a dose pack TAKE JERONIMOIN G TO PACKAGE INSTRUCT IONS --TAKE WITH [...] Updated DateTime 5 162.56 cm 30.7 kg/m2 50110.0 3 g 60 /min 100 % 100 % 18 /min 136 mm[Hg] 82 mm[Hg] Shannan James [place] - [facility] 5 08:38:48 Social History Question Answer Notes LastModified by [...] Or The Highest Degree You Have Received? [id number] Information not available 07/22/2022 Have There Been [...] Do You Have A Medical Power Of Fruit Inspector? 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 [id number] Information not available 07/22/2022 Do you have [...] colitis N Cerebrovascular Disease N Depression N Guillain-[place] N Sleep Apnea N Aneurysm N Bronchitis [...] [facility] 08/02/2022 14:41:49 MMR 8 completed Shannan [place] null, [place] - [facility] 08/02/2022 14:41:49 Hep B, adolescent or pediatric 3 completed Shannan [place] [facility] 08/02/2022 14:41:49 COVID-19, mRNA, LNP-S, PF, 100 mcg/0.5mL dose or 50 mcg/0.25mL dose 1 completed Shannan Sousaler [place], [place] [facility] 08/02/2022 14:41:49 COVID-19, mRNA, LNP-S, PF, 100 mcg/0.5mL dose or 50 mcg/0.25mL dose 2 completed Shannan [place], [place] [facility] 08/02/2022 14:41:49 COVID-19, mRNA, LNP-S, PF, 100 mcg/0.5mL dose or 50 mcg/0.25mL dose 1 completed Shannan [place] [facility] 08/02/2022 14:41:49 Hep B, adolescent or pediatric 3 completed Shannan [place] [facility] 08/02/2022 14:41:49 Past Encounters Encounter ID Performer Location Encounter Start Date Encounter Closed Date Diagnosis/Indication Diagnosis SNOMED-CT Code Diagnosis ICD10 Code Diagnosis Note [id number] Liam Salamanca [address] [address] 03/17/2025 09:18:04 03/17/2025 10:21:17 Obesity 177697455 E66.9 continue a low fat/calori e/carb dietexerci se plan exercise 30 mins a day 3 x a week Lipedema 271984327 R60.9 Fatigue 33823690 R53.83 [id number] Liam Salamanca [address] [address] 03/27/2025 15:46:00 03/27/2025 17:22:44 Intermittent palpitations 584246069 R00.2 while in office pt c/o of [...] at bedisde at all times Sinus tachycardia 346411 01 R00.0 [id number] Liam Salamanca [address] [address] 03/28/2025 15:42:06 03/28/2025 16:10:06 Anxiety 87960448 F41.9 Patient identified triggers for anxiety and impact of anxious thinking on functionin g. Discussed strategies to regulate symptoms and need for compliance with treatment. medication discussed with pt- recheck in 2 weeks and increase dose if needed, low dose started [id number] Liam Salamanca [address] [address] 04/07/2025 08:06:24 04/07/2025 10:02:55 [place] 381121218 R23.2 labs Paresthesia 97512566 R20 .2 labs Xerostomia 35671383 R68. 2 labs Tachycardia 4373840 R00. 0 labs Acute urin sasha tract infection 751510413 N39.0 continue meds Health Concerns Section Related Observation LastModified by Organization Detai ls LastModified Time None Recorded Concern Status LastModified by Organization Details LastModified Time None Recorded Payers Encounter Date Sequence Insurance Name Policy Number Policy Carlton Covered Member ID Carlton Member ID Guarantor Name 04/07/2025 1 [place] [id number] 4 Chloe Vaughan [id number] Chloeraissa Vaughan Notes Date Note Type Note Provider Name and Address Organization Details Recorded Time 04/07/2025 text/html 39 yr old female presents [...] the time, even on meds. has seen glove cutter and r/o for perimenopausal or menopause. Liam Salamanca, GROUP TEACHER [address], [place], [address], [place] [facility] 04/07/2025 10:52:42 OBGyn Episode No OBEpisode recorded.
--- NOTE | 2025-04-09 15:15 | CA_ITS ---
APPROVED REPORT EXAM: Comprehensive 2D, Doppler, and color-flow Echocardiogram Medical Customer Service Representative: Dilma Rojas RT(R) Ht: 5 ft 5 in Wt: 182lbs BSA: 1.90 BP: 136/82 mmHg Indications: dyspnea, palpitations, tachycardia 2D Dimensions Left Atrium 3.48 cm F: 2.7 - 3.8 LA Volume 24.10 mL LVOT 1.83 cm (M/F) 1.5-2.5 LA Volume Index 12.68 mL/m2 (M/F) 16-34 EF AP4 54.00 % GL Strain -22.5 % M-Mode Dimensions RVDd 2.68 cm (0.9-2.6) LVDd 4.97 cm (3.5-5.7) Ao Diam 2.73 cm (2.0-3.7) LVDs 3.68 cm (3.5-5.7) IVSd 0.54 cm (0.6-1.1) PWd 0.72 cm (0.6-1.1) EF (Teich) 50.80% FS 26.00% EDV (Teich) 116.60 mL ESV (Teich) 57.40 mL LV Diastology E Decel Time 211 (160-240 msec) E/A Ratio 1.5 MED E' 14.4 (>= 7 cm/sec) E'/MED E' Ratio 9.55 (<= 14) LAT E' 16.9 (>= 10 cm/sec) E/LAT E' Ratio 8.14 (<= 14) Mitral Valve MV E Max Marquise. 138.0 (40-130 cm/s) MV A Velocity 90.0 (40-130 cm/s) E/A Ratio 1.53 MV Decel. Time 211 (160-240 ms) Tricuspid Valve TR P. Velocity 293.00 cm/s Left Ventricle The left ventricle is normal size. The left ventricular systolic function is normal. The left ventricular ejection fraction is within the normal range. There is normal left ventricular wall thickness. There is normal LV segmental wall motion. The left ventricular diastolic function is normal. LVEF is 55%. Right Ventricle The right ventricle is normal size. The right ventricular systolic function is normal. Atria The left atrium size is normal. The right atrium size is normal. There is no Doppler evidence of interatrial shunt. Aortic Valve The aortic valve opens well. There is no aortic valvular stenosis. Trace aortic regurgitation. Mitral Valve The mitral valve is normal in structure. No evidence of mitral valve stenosis. Mild mitral regurgitation. Tricuspid Valve Tricuspid valve is grossly normal in structure and function. Mild tricuspid regurgitation. RVSP is 30???35 mmHg. Pulmonic Valve The pulmonary valve is normal in structure. Trace pulmonic regurgitation. Great Vessels The aortic root is normal in size. IVC is normal in size and collapses >50% with inspiration. Pericardium There is no pericardial effusion. Other Information Study Quality: Adequate Conclusion Normal biventricular systolic function. Mild MR, mild TR. RVSP 30-35 mmHg. Electronically signed by : Ayanna Alexander MD 04/09/2025 22:39:35
== END 2025-04-09 23:59 | disposition home or self-care (01) ==
LOC: RT 14:59
PROVIDERS: PCP Nurse Practitioner Family; Visit Provider Physician Assistant
DX: I08.1 Rheumatic disorders of both mitral and tricuspid valves (principal); R00.0 Tachycardia, unspecified
CPT/HCPCS: 93306